=== PATIENT | female | born 1970 | race Caucasian/White ===

== ENCOUNTER → 2017-10-22 15:47 | Outpatient (CLI) | payer BC, SELFPAY ==
--- NOTE | 2017-10-22 15:56 | MR_ITS ---
MR elbow RT wo con CLINICAL INDICATION: Severe elbow pain after lifting ITS.REASON: RIGHT ELBOW PAIN ORDERING PHYSICIAN: Kashif Fitch MD PATIENT AGE: 47 years TECHNIQUE: Routine multiplanar multiecho sequences performed without contrast COMPARISON: None FINDINGS: No fracture or dislocation is evident. No destructive process. There is slight increased T2 signal along the medial aspect of the elbow within the subcutaneous tissues. There is questionable discontinuity of the posterior bundle of the ulnar collateral ligament suggesting a sprain or partial tear of the ligament. The anterior bundle is intact. The lateral collateral ligament has an unremarkable appearance. There is increased T2 signal involving the superior aspect of the common extensor tendon consistent with lateral epicondylitis. Biceps tendon and brachialis tendon appears intact as does the triceps tendon. Annular ligament has an unremarkable appearance. There is a small amount fluid in the elbow joint which may be physiologic. IMPRESSION: 1. Partial tear versus sprain of the posterior bundle of the ulnar collateral ligament. 2. Increased T2 signal involves the superior aspect of the common extensor tendon suggesting partial tear/tendinosis consistent with lateral epicondylitis 3. Small elbow joint effusion
== END ==
PROVIDERS: Family Provider Family Medicine; PCP Family Medicine; Visit Provider Family Medicine
DX: M25.521 Pain in right elbow (principal)
CPT/HCPCS: 73221

== ENCOUNTER → 2019-01-20 14:46 | Outpatient (CLI) | payer BC, SELFPAY ==
--- NOTE | 2019-01-20 14:49 | MM_ITS ---
MM Dig mamm BI DX w/CAD, US breast RT complete, US breast LT complete INDICATION: Palpable abnormality left breast, left breast nodule ORDERING PHYSICIAN: Crow Gloria PATIENT AGE: 48 years COMPARISON: 03/19/2017, 04/02/2017 TECHNIQUE: Standard images performed along with spot compression views of both breasts and bilateral breast ultrasound FINDINGS: There is dense fibroglandular tissue bilaterally decrease in the sensitivity of mammography. Right breast: Scattered asymmetric densities probably related to asymmetric fibroglandular tissue and small cysts. No malignant appearing mass or malignant appearing microcalcification is evident. There is an asymmetric density in the upper at 11 mm. A cyst is present in this area on the ultrasound. Multiple cysts are present on the right breast ultrasound. No malignant appearing mass or malignant appearing microcalcification is evident. Right breast ultrasound: 6 mm cyst at 3:00, 5 mm complex cyst at 8:00, 17 x 7 mm septated complex cyst at 8:00, 10 mm cyst at 10:00, small nodes in the right axilla. Left breast: Palpable abnormality reported in the upper outer left breast. There is dense fibroglandular tissue. A 3 cm nodule is present in the upper outer aspect of the left breast corresponding to the palpable abnormality. There is an additional 2 cm nodule in the medial aspect of the breast inferiorly. Left breast ultrasound: 5 mm cyst at 1:00, 2.3 x 1.6 cm cyst at 2:00, 1.9 x 1 cm cyst 2:00, 2.8 x 1 cm cyst at 9:00. No suspicious nodules evident IMPRESSION: Dense fibroglandular tissue with bilateral breast cyst. Bilateral areas of asymmetric density on the mammogram. No convincing evidence of malignancy. Palpable abnormality in the upper outer left breast corresponds to cysts. Recommend 6 month mammographic and sonographic follow-up. Sonographic guided cyst aspiration could be performed of any cysts for patient discomfort if clinically desired BI-RADS Category: 3 Probably Benign Finding Short Term Follow-up RECOMMENDED FOLLOW-UP: 6M - 6 MONTH FOLLOW-UP (A letter has been sent to the patient regarding results of the study.)
== END ==
PROVIDERS: PCP Family Medicine; Visit Provider Obstetrics & Gynecology Gynecology
DX: N63.20 Unspecified lump in the left breast, unspecified quadrant (principal)
CPT/HCPCS: 76641; 77066

== ENCOUNTER → 2019-04-27 11:29 | Outpatient (CLI) | payer BC, SELFPAY ==
--- NOTE | 2019-04-27 13:59 | CT_ITS ---
CT abdomen pelvis wo con CLINICAL INDICATION: ITS.REASON: RLQ PAIN,ABD PAIN ORDERING PHYSICIAN: Kashif Fitch MD PATIENT AGE: 49 years COMPARISON: None TECHNIQUE: Axial images obtained with sagittal and coronal reformats. All CT scans at the facility use one or more dose reduction, viz: automated exposure control, ma/kV adjustment per patient size (including targeted exams where dose is matched to indication, i.e. head), or iterative reconstruction technique. FINDINGS: Oral contrast was utilized. IV contrast was not given as IV access could not be obtained. Lower thorax: No acute finding . Asymmetric density is present in both right and left breast inferiorly and may be better evaluated with mammography. Abdomen pelvis: The liver, spleen, adrenal glands, and pancreas have an unremarkable unenhanced appearance. No radio opaque gallstones are evident. 5 mm stone is present in the lower pole the right kidney. No left renal calculi evident. No ureteral calculi. No hydronephrosis. The urinary bladder has an unremarkable appearance. No evidence of appendicitis. The appendix does spill with contrast. The appendix is retrocecal. No intestinal obstruction or free air. No evidence of diverticulitis. There are few scattered small mesenteric lymph nodes which are nonspecific. Some minimal haziness of the mesenteric fat posterior to the cecum which may actually be artifactual in nature. There is an oval area of decreased attenuation in the left adnexa measures 4.6 cm AP and 1.4 cm transverse. The could represent a hydrosalpinx or an unusual ovarian cyst. There is a small amount of fluid in the cul-de-sac the right. No acute bony findings. IMPRESSION: 1. No evidence of appendicitis. 2. Nonobstructing right nephrolithiasis. 3. Tubular appearing isodensity in the left adnexal region which may represent hydrosalpinx. An atypical ovarian cyst is an additional consideration
== END ==
PROVIDERS: PCP Family Medicine; Visit Provider Family Medicine
DX: R10.31 Right lower quadrant pain (principal)
CPT/HCPCS: 74176

== ENCOUNTER → 2020-08-11 09:02 | Outpatient (CLI) | payer BC, SELFPAY ==
--- NOTE | 2020-08-11 09:04 | US_ITS ---
PROCEDURE: US THYROID CLINICAL INDICATION: NECK PAIN COMPARISON: No exams were available for comparison FINDINGS: Right lobe: 4.1 x 1 3 x 2.1 cm. In the upper pole there is a 4 mm hypoechoic nodule. Mid polar region 3 mm hypoechoic nodule. In the lower pole there is a 4 mm hypoechoic nodule. Left lobe: 4.3 x 1.2 x 1.5 cm. In the upper pole there is a 2 mm hypoechoic nodule. In the mid pole there is a 4 mm cyst with a small echogenic focus peripherally. Isthmus: Unremarkable Additional findings: IMPRESSION: Borderline enlarged thyroid gland with small bilateral hypoechoic nodules benign-appearing Dictated by: Bam Cisse MD 08/11/2020 13:01 Bam Cisse MD in [place] 08/11/2020 13:01
--- NOTE | 2020-08-11 09:05 | US_ITS ---
PROCEDURE: US SOFT TISSUE HEAD AND NECK CLINICAL INDICATION: NECK PAIN COMPARISON: No exams were available for comparison FINDINGS: The parotid and submandibular glands have an unremarkable appearance. There are few scattered small nodes in the neck on both sides measuring up to 1 cm on the right. There are hypoechoic nodules along the lower pole of the parotid gland on the left and has the appearance of small nodes. No abnormal fluid collection or other significant anomaly. IMPRESSION: Small cervical and left parotid lymph nodes otherwise negative Dictated by: Bam Cisse MD 08/11/2020 14:38 Bam Cisse MD in [place] 08/11/2020 14:38
== END ==
PROVIDERS: PCP Family Medicine; Visit Provider Family Medicine
DX: M54.2 Cervicalgia (principal)
CPT/HCPCS: 76536

== ENCOUNTER → 2020-08-31 16:03 | Outpatient (CLI) | payer BC, SELFPAY ==
[2020-08-31 17:54] LABS: Basophils % 0.6 % (0.1-2.0); Eosinophils # 0.1 K/mm3 (0.0-0.4); Eosinophils % 1.8 % (0.1-12.0); Hemoglobin 15.3 g/dL (12.2-16.2); Lymphocytes # 2.1 K/mm3 (0.7-4.5); Lymphocytes % 37.6 % (10-50); Mean Corpuscular HGB Conc 33.2 g/dL (31.8-35.4); Mean Corpuscular Hemoglobin 30.4 pg (27.0-31.2); Mean Corpuscular Volume 91.5 fl (81-99); Mean Platelet Volume 10.3 fl (7.4-10.4); Monocytes # 0.3 K/mm3 (0.1-1.0); Monocytes % 5.6 % (1.7-9.3); Neutrophils % 54.3 % (37.0-80.0); Platelet Count 193 K/mm3 (142-424); Red Blood Count 5.03 M/mm3 (4.20-5.40); White Blood Count 5.5 K/mm3 (4.8-10.8)
[2020-09-02 09:51] LABS: Covid-19 Nasal PCR Sendout Lex POSITIVE
== END ==
PROVIDERS: PCP Family Medicine; Visit Provider Nurse Practitioner Family
DX: Z20.828 Contact with and (suspected) exposure to other viral communicable diseases (principal); U07.1 COVID-19
CPT/HCPCS: 36415; 85025; U0004

== ENCOUNTER → 2020-12-08 09:07 | Outpatient (CLI) | payer BC, SELFPAY ==
--- NOTE | 2020-12-08 09:11 | MM_ITS ---
PROCEDURE: MM DIG SCREENING MAMM BI W/CAD Digital Breast Tomosynthesis Included CLINICAL INDICATION: SCREENING There is a history of breast cancer patient's paternal aunt. COMPARISON: MG DMSB DIG MAMM-SCREEN MAYELIN W/CAD from 03/19/2017 MG DMBAV DIG MAMM- MAYELIN ADD VIEWS W/CAD from 04/02/2017 MG DIG MAMM-DX MAYELIN from 01/20/2019 TECHNIQUE: Standard CC and MLO images and 3D Tomosynthesis was obtained. R2 CAD reviewed. FINDINGS: There is a markedly dense and heterogenic parenchymal pattern lessening the sensitivity of mammography. There are multiple cystic appearing lesions in both breasts, largest outer quadrant left breast. There has been interval decrease in size of the cystic lesions left breast compared to earlier studies. Cystic lesions in the right breast appear to be stable. Stephane images are most helpful in this type of dense breast parenchyma. There is no suspicious lesion in either breast and no suspicious microcalcifications. However strongly encourage monthly breast self-examination. IMPRESSION: Markedly dense heterogenic parenchymal pattern consistent with prominent fibrocystic change BI-RAD Category: 2 Benign Finding(s) FOLLOW-UP: 1YR 1 Year Follow-up (A letter has been sent to the patient regarding results of the study.) Dictated by: Dr. Jarvis Polk MD 12/15/2020 16:46 Dr. Jarvis Polk MD in [place] 12/15/2020 16:46
--- NOTE | 2020-12-08 11:25 | XR_ITS ---
PROCEDURE: XR CHEST 2V CLINICAL HISTORY: SOB COMPARISON: CR CXR CHEST(2 VIEWS-NOT PORTABLE) from 11/08/2015 FINDINGS: The cardiomediastinal silhouette and pulmonary vascularity are within normal limits. The lungs are clear without infiltrates, suspicious nodules, or pleural effusions. No acute bony abnormalities. IMPRESSION: No acute findings. Dictated by: Bam Cisse MD 12/08/2020 17:46 Bam Cisse MD in [place] 12/08/2020 17:46
[2020-12-08 11:51] LABS: D-Dimer 0.59 ug/mL (0.0-0.5)
[2020-12-08 12:11] LABS: Alanine Aminotransferase 19 U/L (12-78); Albumin Level 4.7 g/dl (3.5-5.0); Albumin/Globulin Ratio 1.6 (1.1-1.8); Alkaline Phosphatase 101 U/L (38-126); Anion Gap 11.7 mEq/L (5-15); Aspartate Amino Transferase 22 U/L (14-36); Bilirubin,Total 0.9 mg/dl (0.2-1.3); Blood Urea Nitrogen 15 mg/dl (7-17); Calcium 9.6 mg/dl (8.4-10.2); Carbon Dioxide 26 mmol/L (22.0-30.0); Chloride 105 mmol/L (98-107); Chol/HDL Ratio 4.4 (1-3.5); Cholesterol 242 mg/dl (140-200); Creatine Kinase 31 U/L (30-135); Estimated Glomerular Filt Rate 76 ml/min (>60); GFR (African American) 92 ML/MIN (>60); Glucose 93 mg/dl (74-100); HDL Cholesterol 55 mg/dl (40-60); Magnesium 2.2 mg/dl (1.6-2.3); Potassium 4.7 mmoL/L (3.5-5.1); Sodium 138 mmol/L (136-145); Total Protein,Serum 7.7 g/dl (6.3-8.2); Triglycerides 112 mg/dl (30-150); VLDL Cholesterol 22 mg/dL (0-40)
[2020-12-08 12:14] LABS: Basophils # 0.1 K/mm3 (0-0.2); Eosinophils # 0.1 K/mm3 (0.0-0.4); Hematocrit 43.7 % (37.0-47.0); Hemoglobin 14.4 g/dL (12.2-16.2); Lymphocytes # 1.9 K/mm3 (0.7-4.5); Mean Corpuscular HGB Conc 32.9 g/dL (31.8-35.4); Mean Corpuscular Volume 88.2 fl (81-99); Mean Platelet Volume 9.2 fl (7.4-10.4); Monocytes # 0.4 K/mm3 (0.1-1.0); Monocytes % 5.9 % (1.7-9.3); Neutrophils # 3.7 K/mm3 (1.8-7.8); Neutrophils % 60.1 % (37.0-80.0); Platelet Count 221 K/mm3 (142-424); Red Blood Count 4.96 M/mm3 (4.20-5.40); Red Cell Distribution Width 13.8 % (11.5-17.5); White Blood Count 6.1 K/mm3 (4.8-10.8)
[2020-12-08 12:23] LABS: Direct LDL Cholesterol 133.29 mg/dL (100-129)
[2020-12-08 12:28] LABS: CKMB Relative Index 0.6 U/L (0-4.0); Creatine Kinase MB < 0.2 ng/ml (0.0-2.03); Troponin I < 0.01 ng/ml (0.00-0.034)
[2020-12-08 13:17] LABS: Vitamin B12 334 pg/mL (239-931)
== END ==
PROVIDERS: Physician Assistant; PCP Family Medicine; Visit Provider Obstetrics & Gynecology Gynecology
DX: Z12.31 Encounter for screening mammogram for malignant neoplasm of breast (principal); R06.02 Shortness of breath
CPT/HCPCS: 36415; 71046; 77063; 77067; 80053; 80061; 82550; 82553; 82607; 83735; 84100; 84443; 84484; 85025; 85378

== ENCOUNTER → 2020-12-12 09:10 | Outpatient (CLI) | payer BC, SELFPAY ==
--- NOTE | 2020-12-12 | CA_ITS ---
APPROVED REPORT Exam: Exercise Treadmill Technologist: Shiloh Ca Ht: 5 ft 5 in Wt: 185 lbs BSA: 1.91 m2 HR: 79 bpm BP: 137/78 mmHg Indications: Chest pain Medical History Medications: Omeprazole,,,,, Multivitamin,,,,, Stress Test Details Test: All HR Resting HR: 88 bpm Max Heart Rate (APMHR): 171.625545 bpm Max HR Achieved: 175 bpm Target HR (85% APMHR): 145.081394 bpm % of APMHR: 102.34 Recovery HR: 100 bpm BP Resting BP: 137.0/78.0 mmHg Max BP: 158.0/68.0 mmHg Recovery BP: 141.0/76.0 mmHg ECG Clinical Exercise duration: 07:25 min Highest Stage Achieved: Exercise capacity: 10.1 METs Stress ECG Conclusion All protocol completed. Patient exercised 07:25. Test stopped due to shortness of breath. Symptoms: Shortness of breath during peak exercise, resolved in recovery. No chest pain. Arrhythmias/Ectopy: Occasional PVC ST-T Changes: Greater than 1.[address] depression. Conclusion: GXT only. Occasional PVC. Average physical capacity. Appropriate blood pressure response. Grater than 1.[address] depression. No chest pain. Electronically signed by : Romel James, 12/12/2020 17:20:44
== END ==
PROVIDERS: PCP Family Medicine; Visit Provider Physician Assistant
DX: R07.9 Chest pain, unspecified (principal)
CPT/HCPCS: 93017

== ENCOUNTER → 2020-12-15 10:53 | Outpatient (CLI) | payer BC, SELFPAY ==
[2020-12-15 11:40] LABS: Basophils % 0.7 % (0.1-2.0); Eosinophils # 0.1 K/mm3 (0.0-0.4); Eosinophils % 1.9 % (0.1-12.0); Hematocrit 42.1 % (37.0-47.0); Hemoglobin 14.3 g/dL (12.2-16.2); Lymphocytes # 1.8 K/mm3 (0.7-4.5); Lymphocytes % 34.3 % (10-50); Mean Corpuscular HGB Conc 33.9 g/dL (31.8-35.4); Mean Corpuscular Hemoglobin 29.7 pg (27.0-31.2); Mean Corpuscular Volume 87.5 fl (81-99); Mean Platelet Volume 9.4 fl (7.4-10.4); Monocytes # 0.3 K/mm3 (0.1-1.0); Monocytes % 6.6 % (1.7-9.3); Neutrophils # 2.9 K/mm3 (1.8-7.8); Neutrophils % 56.4 % (37.0-80.0); Platelet Count 214 K/mm3 (142-424); Red Blood Count 4.81 M/mm3 (4.20-5.40); Red Cell Distribution Width 13.7 % (11.5-17.5); White Blood Count 5.2 K/mm3 (4.8-10.8)
[2020-12-15 11:58] LABS: Chloride 104 mmol/L (98-107)
[2020-12-15 11:59] LABS: Potassium 4.6 mmoL/L (3.5-5.1); Sodium 140 mmol/L (136-145)
[2020-12-15 12:02] LABS: Anion Gap 11.6 mEq/L (5-15); Blood Urea Nitrogen 12 mg/dl (7-17); Calcium 9.5 mg/dl (8.4-10.2); Carbon Dioxide 29 mmol/L (22.0-30.0); Estimated Glomerular Filt Rate 76 ml/min (>60); GFR (African American) 92 ML/MIN (>60); Glucose 94 mg/dl (74-100)
[2020-12-15 12:23] LABS: Coronavirus 19 IgG Antibody Positive (Negative); Coronavirus 19 IgM Antibody Negative (Negative)
== END ==
PROVIDERS: PCP Family Medicine; Visit Provider Internal Medicine Cardiovascular Disease
DX: Z01.812 Encounter for preprocedural laboratory examination (principal); Z20.822 Contact with and (suspected) exposure to COVID-19; I20.9 Angina pectoris, unspecified; R94.31 Abnormal electrocardiogram [ECG] [EKG]; R94.39 Abnormal result of other cardiovascular function study; E78.5 Hyperlipidemia, unspecified; B94.8 Sequelae of other specified infectious and parasitic diseases; Z82.49 Family history of ischemic heart disease and other diseases of the circulatory system
CPT/HCPCS: 80048; 85025; 86328; U0003

== ENCOUNTER 2020-12-16 09:25 | Day surgery (SDC) | payer BC, SELFPAY ==
[2020-12-16] VITALS (17 sets, daily range): BP systolic 57–147; BP diastolic 31–83; PULSE 23–87; RESP 16–18; TEMP 37; O2SAT 98–100; BMI 31.1
--- NOTE | 2020-12-16 | IR_ITS ---
APPROVED REPORT Patient Location: Outpatient Building Tech: AYSHA Goodman RT (R) PROCEDURES Left heart catheterization Left ventriculogram Selective coronary angiogram INDICATION Abnormal stress test, Angina pectoris, Strong family history of coronary disease with numerous risk factors Informed consent was obtained prior to the procedure. COMPLICATIONS NONE Estimated Blood Loss: LESS THAN 10 ML TECHNIQUE One percent lidocaine used to anesthetize the right anterior aspect of the wrist. The right radial artery was accessed via the Seldinger technique. A 6 Faroese sheath was placed in the right radial artery. 2.5 mg of verapamil, 800 mcg of nitroglycerin, 1mg Lidocaine and 5000 U Heparin were given through the arterial sheath. A Way2Pay catheter r was also used to perform left heart catheterization, left ventriculogram and selective coronary angiogram. At the end of the procedure the sheath was removed good hemostasis was achieved using Traclet band, patient was transferred to the postop holding area in stable condition. ANGIOGRAPHIC RESULTS The left main artery Normal The left anterior descending artery Normal The circumflex artery Normal The right coronary artery Dominant normal The GILLETTE ventriculogram reveals Normal 65% The left ventricular end-diastolic pressure 10 mmHg IMPRESSION Normal coronary arteries Normal ejection fraction Normal left ventricular end-diastolic pressure PLAN 1. Treat underlying hypertension which is the likely etiology for the abnormal stress test Electronically signed by : Andrea Gutierrez, 12/16/2020 12:03:55
--- NOTE | 2020-12-16 12:49 | SUR.PHASEII ---
While patient was sitting up and eating her meal she stated she felt as if she was going to pass out, HR noted to be in low 20s on monitor, pt became hypotensive. I and Veronica RN quickly to beside to assess patient. Oxygen applied, fluid bolus going, and pt laid flat. HR and b/p are now stable, will continue to monitor.
--- NOTE | 2020-12-16 14:48 | SUR.PHASEII ---
patient is feeling better after vagal response in post op lab analyst. BP and HR stable at discharge
== END 2020-12-16 14:47 | disposition home or self-care (01) ==
LOC: CATHLAB 09:27
PROVIDERS: PCP Family Medicine; Visit Provider Internal Medicine
DX: I20.8 Other forms of angina pectoris (principal); Z82.49 Family history of ischemic heart disease and other diseases of the circulatory system; R07.9 Chest pain, unspecified; I10 Essential (primary) hypertension; Z79.899 Other long term (current) drug therapy; R94.39 Abnormal result of other cardiovascular function study
CPT/HCPCS: 93458; 99152; C1725; C1760; C1769; J1644; Q9967

== ENCOUNTER → 2020-12-22 15:05 | Outpatient (CLI) | payer BC, SELFPAY ==
--- NOTE | 2020-12-22 15:07 | CA_ITS ---
APPROVED REPORT EXAM: Comprehensive 2D, Doppler, and color-flow Echocardiogram Sane Rn: Anny Vidales CRT Ht: 5 ft 5 in Wt: 187lbs BSA: 1.92 BP: 137/86 mmHg Indications: Chest Pain, Shortness of Breath, Hyperlipidemia 2D Dimensions LVOT 1.70 cm (M/F) 1.5-2.5 LA Volume 28.70 mL LA Volume Index 14.90 mL/m2 (M/F) 16-34 M-Mode Dimensions RVDd 1.81 cm (0.9-2.6) LA Diam 3.14 cm (1.9-4.0) LVDd 5.00 cm (3.5-5.7) Ao Diam 3.14 cm (2.0-3.7) LVDs 3.06 cm (3.5-5.7) IVSd 1.28 cm (0.6-1.1) PWd 0.59 cm (0.6-1.1) EF (Teich) 69.00% FS 38.80% EDV (Teich) 118.20 mL TAPSE 3.43 (<1.7) ESV (Teich) 36.70 mL LV Diastology E Decel Time 223.00 (160-240 msec) E/A Ratio 1.40 MED E' 9.80 (< 7 cm/sec) MED A' 7.70 cm/s E'/MED E' Ratio 9.81 (>14) LAT E' 11.20 (<10 cm/sec) LAT A' 8.00 cm/s E/LAT E' Ratio 8.58 (>14) Aortic Valve AO Peak GR. 9.60 mmHg Mitral Valve MV A Velocity 69.00 (40-130 cm/s) E/A Ratio 1.40 MV Decel. Time 223.00 (160-240 ms) Pulmonary Valve PV Peak Velocity 95.00 (50-150 cm/s) Tricuspid Valve TR P. Velocity 232.00 cm/s RAP Estimate 10.00 mmHg RVSP 31.50 mmHg Left Ventricle Left atrium is normal size, left ventricle is normal size, left ventricle wall thickness is upper limit of the normal, there is preserved left ventricular systolic function, visually estimated ejection fraction 55% with no regional wall motion abnormality, diastolic parameters are within normal range. Right Ventricle Right atrium and right ventricle are normal size and contractility. Aortic Valve Aortic valve is grossly normal, there is no aortic stenosis or aortic insufficiency. Mitral Valve Mitral valve is grossly normal, there is trace mitral regurgitation. Tricuspid Valve Tricuspid valve grossly normal, there is trace tricuspid regurgitation, tricuspid regurgitation jet velocity is inadequate for calculation of the right ventricular systolic pressure. Pulmonic Valve Pulmonic valve is poorly visualized. Great Vessels Aortic root is normal size. Pericardium No significant pericardial effusion noted. Conclusion 1. Normal left ventricular size, preserved left ventricular systolic function, visually estimated ejection fraction 55% with no regional wall motion abnormality, diastolic parameters are within normal range. 2. Trace mitral and tricuspid regurgitation. 3. No significant pericardial effusion noted. Electronically signed by : Jeffery Penn, 12/24/2020 13:40:42
== END ==
PROVIDERS: PCP Family Medicine; Visit Provider Internal Medicine Cardiovascular Disease
DX: I20.9 Angina pectoris, unspecified (principal); R94.31 Abnormal electrocardiogram [ECG] [EKG]; R94.39 Abnormal result of other cardiovascular function study; E78.5 Hyperlipidemia, unspecified; Z86.16 Personal history of COVID-19; B94.8 Sequelae of other specified infectious and parasitic diseases; Z82.49 Family history of ischemic heart disease and other diseases of the circulatory system
CPT/HCPCS: 93306

== ENCOUNTER → 2020-12-27 11:54 | Outpatient (CLI) | payer BC, SELFPAY ==
--- NOTE | 2020-12-27 12:05 | CT_ITS ---
PROCEDURE: CT ANGIO CHEST CLINCIAL INDICATION: SOB Chest pain Hx of covid in August 2020 COMPARISON: MG MM DIG SCREENING MAMM BI W/CAD from 12/08/2020 TECHNIQUE: IV Contrast: 70ML Isovue 370 Axial images obtained with sagittal and coronal reformats. All CT scans at the facility use one or more dose reduction, viz: automated exposure control, ma/kV adjustment per patient size (including targeted exams where dose is matched to indication, i.e. head), or iterative reconstruction technique. FINDINGS: HEART AND MEDIASTINAL STRUCTURES: No evidence of pulmonary embolus, aortic aneurysm, or aortic dissection. No mediastinal or hilar mass or adenopathy. LUNGS AND PLEURAL SPACES: There is evidence of old granulomatous disease no lobar consolidation or collapse. No ground-glass infiltrates. There is a calcified granuloma in the left upper lobe with some minimal surrounding opacification. There is a 7 by 4 mm noncalcified nodule in the left upper lobe. No bronchiectasis or significant bronchial thickening apparent. BONY STRUCTURES: No acute bony abnormalities apparent. UPPER ABDOMEN: Unremarkable. ADDITIONAL FINDINGS: There are bilateral rounded densities of the breasts and may be due to cyst as seen on recent mammogram. IMPRESSION: 1. No acute finding. No evidence of pulmonary embolus. 2. Indeterminate 7 x 4 mm left upper lobe nodule. Consider six-month follow-up to confirm stability. 3. Old granulomatous disease Dictated by: Bam Cisse MD 12/28/2020 10:34 Bam Cisse MD in [place] 12/28/2020 10:34
== END ==
PROVIDERS: PCP Family Medicine; Visit Provider Physician Assistant
DX: R07.9 Chest pain, unspecified (principal); R06.02 Shortness of breath; R79.89 Other specified abnormal findings of blood chemistry; Z86.16 Personal history of COVID-19
CPT/HCPCS: 71275; Q9967

== ENCOUNTER → 2021-03-01 07:59 | Outpatient (CLI) | payer BC, SELFPAY | PROVIDERS: PCP Family Medicine; Visit Provider Internal Medicine Pulmonary Disease | DX: R06.09 Other forms of dyspnea (principal) | CPT/HCPCS: 94060; 94726; 94729 ==

== ENCOUNTER → 2021-07-03 06:54 | Outpatient (CLI) | payer BC, SELFPAY ==
--- NOTE | 2021-07-03 06:55 | CT_ITS ---
PROCEDURE: CT CHEST WO CON CLINICAL INDICATION: 6-month follow-up COMPARISON: CT CT ANGIO CHEST from 12/27/2020 TECHNIQUE: Axial images obtained with sagittal and coronal reformats. All CT scans at the facility use one or more dose reduction, viz: automated exposure control, ma/kV adjustment per patient size (including targeted exams where dose is matched to indication, i.e. head), or iterative reconstruction technique. FINDINGS: HEART AND MEDIASTINAL STRUCTURES: Unremarkable. LUNGS AND PLEURAL SPACES: Calcified granulomas once again noted in the left upper lobe. In the left upper lobe anteriorly there is a 7 x 4 mm nodule which is unchanged. No new nodules evident. No effusions or infiltrates. BONY STRUCTURES: No acute bony abnormalities apparent. UPPER ABDOMEN: Unremarkable. ADDITIONAL FINDINGS: No other significant abnormalities. IMPRESSION: Stable CT appearance of the chest with no change in the 7 mm left upper lobe nodule. No change with no acute finding. Dictated by: Bam Cisse MD 07/04/2021 10:16 Bam Cisse MD in [place] 07/04/2021 10:16
== END ==
PROVIDERS: PCP Family Medicine; Visit Provider Internal Medicine Pulmonary Disease
DX: R91.8 Other nonspecific abnormal finding of lung field (principal)
CPT/HCPCS: 71250

== ENCOUNTER → 2022-01-02 14:10 | Outpatient (CLI) | payer BC, SELFPAY ==
--- NOTE | 2022-01-02 14:14 | XR_ITS ---
FINAL REPORT CLINICAL HISTORY: INJURY FROM A FALL, pain FINDINGS: 3 views of the right foot were obtained. There is no acute fracture or dislocation. The joint spaces are intact. The soft tissues are unremarkable. IMPRESSION: No acute process. Reviewed, Interpreted and Dictated by Cleveland Newsome MD Transcribed by Clovis Dickson Authenticated by Cleveland Newsome MD on 01/02/2022 04:52:04 PM [facility]
--- NOTE | 2022-01-02 14:16 | XR_ITS ---
FINAL REPORT CLINICAL HISTORY: INJURY FROM A FALL FINDINGS: RIGHT ANKLE: Three views of the right ankle were obtained. There is no acute fracture or dislocation. The joint spaces and mortise are intact. There is no soft tissue abnormality. IMPRESSION: No acute process. Reviewed, Interpreted and Dictated by Cleveland Newsome MD Transcribed by Clovis Dickson Authenticated by Cleveland Newsome MD on 01/02/2022 04:51:47 PM [facility]
== END ==
PROVIDERS: PCP Family Medicine; Visit Provider Family Medicine
DX: S93.401A Sprain of unspecified ligament of right ankle, initial encounter (principal)
CPT/HCPCS: 73610; 73630

== ENCOUNTER 2022-09-19 16:08 | Emergency (ER) | payer BC, SELFPAY ==
[2022-09-19 16:55] VITALS: BP 143/94; PULSE 81; RESP 16; TEMP 36.7; O2SAT 100; BMI 31.0
--- NOTE | 2022-09-19 17:11 | EXP.UTC ---
Discharge Plan Disposition Patient Disposition: Home, Self-Care Condition: Good Prescriptions Prescriptions: No Action multivitamin Tablet 1 tab PO DAILY omeprazole 40 mg capsule,delayed release(DR/EC) 40 mg PO DAILY Label Comments: TAKE 1 CAPSULE BY MOUTH ONCE DAILY FOR 30 DAYS metoprolol succinate 25 mg tablet extended release 24 hr 25 mg PO DAILY Qty: 30 5RF albuterol sulfate 90 mcg/actuation HFA aerosol inhaler 1 inh INHALATION QID PRN (Reason: shortness of breath or wheezing) Qty: 8.5 1RF azelastine 205.5 mcg (0.15 %) spray,non-aerosol 2 spray INTRANASAL HS Qty: 30 3RF Rx Instructions: administer into each nostril Referrals Follow up/Referrals: Octavio Kowalski MD [Primary Care Provider] - See instructions Activity Restrictions/Add. Instructions Additional Instructions/Restrictions: Suture instructions: ?You have required stitches today. Please read the following instructions so you know how to care for them: ?1. Keep wound area dry for the first 24 hours. 2?? May clean gently with mild soap and water, after 48 hours to prevent crusting over suture knots. 3. You may shower if your provider gives permission but do not take a bath until the skin is healed.. 4. Never leave a wet dressing or Band-Aid on your stitches as this allows bacteria to reach the area and may cause infection. Band-aids can cause the wound to sweat and not recommended to wear for long periods of time Watch for signs of infection: ? Increasing redness, tenderness or warmth around the suture site ? Unusual swelling around the site ? Appearance of pus around each suture or any red streaks ? Fever If you develop any of the above signs or symptoms of infection, Follow up with Family Physician immediately 5. Suture removal in _8-10___days 6. Return to [facility] or follow up with family doctor for removal. This can be done by any medical provider dur?ing regular hours on Saturday through Saturday, by appointment. Clinical Impressions Clinical Impression: Laceration Instructions Patient Instructions: DI for Laceration Repair, DI for Laceration Repair -- Finger Discharge ED Provider: Amber Ordaz [facility] General Stated complaint: [id number] Lac to RT index finger Mode of Arrival: Ambulatory Source of Information: Patient Limitations: No Limitations Time Seen by Provider: 09/19/22 17:11 Description of Symptoms (Recalled from Triage Doc. by RN): PATIENT C/O LACERATION TO RIGHT INDEX FINGER HEENT Symptoms (Recalled from RN notes): No Resp Symptoms (Recalled from RN notes): No Skin Symptoms (Recalled from RN notes): Yes MS Symptoms (Recalled from RN notes): No Functional Status (Recalled from RN notes): WNL History of Present Illness Provider Complaint: Patient states that she was washing dishes and dropped a knife and it cut her on right index finger at the bottom of her finger States that she applied pressure but she couldnt get the bleeding stopped and when she looked at it thought she may need glued or stitches Related Data Home Medications Medication Instructions Recorded Confirmed multivitamin 1 tab PO DAILY supplement 12/15/20 07/04/21 omeprazole 40 mg capsule,delayed 40 mg PO DAILY GERD 12/15/20 07/04/21 release Previous Rx's Medication Instructions Recorded metoprolol succinate 25 mg 25 mg PO DAILY High blood pressure 12/23/20 tablet,extended release 24 hr #30 tabs albuterol sulfate 90 mcg/actuation 1 inh inhalation QID PRN shortness 01/30/21 aerosol inhaler of breath or wheezing #8.5 grams azelastine 205.5 mcg (0.15 %) 2 spray intranasal HS #30 mL 03/01/21 nasal spray Allergies Allergy/AdvReac Type Severity Reaction Status Date / Time guaifenesin [From Mucinex] Allergy Intermediate Swelling Verified 07/04/21 11:34 of Lip/Tongue/Throat Worker's Comp Is this a Worker's Comp case?: No [facility] Disclaimer: The information contained in this section may have
[2022-09-19 17:34] VITALS: BP 143/94; PULSE 81; RESP 16; TEMP 36.7; O2SAT 100
== END 2022-09-19 17:37 | disposition home or self-care (01) ==
PROVIDERS: Emergency Provider Nurse Practitioner; PCP Family Medicine
DX: S61.210A Laceration without foreign body of right index finger without damage to nail, initial encounter (principal); W26.0XXA Contact with knife, initial encounter; Y93.G1 Activity, food preparation and clean up; Z23 Encounter for immunization
CPT/HCPCS: 12001; 90471; 90715; 99212; G0463

== ENCOUNTER 2022-10-11 09:21 | Emergency (ER) | payer BC, SELFPAY ==
--- NOTE | 2022-10-11 10:10 | EXP.UTC ---
Discharge Plan Disposition Patient Disposition: Home, Self-Care Condition: Good Prescriptions Prescriptions: New ibuprofen [ibuprofen] 600 mg tablet 600 mg PO Q6HP PRN (Reason: Mild Pain) Qty: 30 0RF No Action multivitamin Tablet 1 tab PO DAILY omeprazole 40 mg capsule,delayed release(DR/EC) 40 mg PO DAILY Label Comments: TAKE 1 CAPSULE BY MOUTH ONCE DAILY FOR 30 DAYS metoprolol succinate 25 mg tablet extended release 24 hr 25 mg PO DAILY Qty: 30 5RF albuterol sulfate 90 mcg/actuation HFA aerosol inhaler 1 inh INHALATION QID PRN (Reason: shortness of breath or wheezing) Qty: 8.5 1RF azelastine 205.5 mcg (0.15 %) spray,non-aerosol 2 spray INTRANASAL HS Qty: 30 3RF Rx Instructions: administer into each nostril Referrals Follow up/Referrals: Raymond Mar JR, MD [Physician] - See instructions Octavio Kowalski MD [Primary Care Provider] - See instructions Activity Restrictions/Add. Instructions Additional Instructions/Restrictions: Rest the extremity, apply ice for 15 minutes as tolerated three or four times per day, Elevate the extremity as tolerated while you are resting. Take ibuprofen for pain. I sent in a prescription to your pharmacy. Follow up with Dr. Mar (orthopedics). I put in a referral but you need to call his office and schedule an appointment. Follow up with your regular doctor. GO TO THE ER FOR ANY WORSENING SYMPTOMS Clinical Impressions Clinical Impression: Left wrist sprain, Pain in left arm Instructions Patient Instructions: Wrist Sprain, DI for Wrist Sprain Discharge ED Provider: Irineo Huynh [facility] General Stated complaint: [id number] left arm Time Seen by Provider: 10/11/22 10:11 History of Present Illness Provider Complaint: She states that yesterday she was moving a very heavy dresser when it slipped and caused her to twist her left wrist and forearm. Since then she has had swelling of that wrist and hand. Related Data Home Medications Medication Instructions Recorded Confirmed multivitamin 1 tab PO DAILY supplement 12/15/20 07/04/21 omeprazole 40 mg capsule,delayed 40 mg PO DAILY GERD 12/15/20 07/04/21 release Previous Rx's Medication Instructions Recorded metoprolol succinate 25 mg 25 mg PO DAILY High blood pressure 12/23/20 tablet,extended release 24 hr #30 tabs albuterol sulfate 90 mcg/actuation 1 inh inhalation QID PRN shortness 01/30/21 aerosol inhaler of breath or wheezing #8.5 grams azelastine 205.5 mcg (0.15 %) 2 spray intranasal HS #30 mL 03/01/21 nasal spray ibuprofen 600 mg tablet 600 mg PO Q6HP PRN Mild Pain #30 10/11/22 tabs Allergies Allergy/AdvReac Type Severity Reaction Status Date / Time guaifenesin [From Mucinex] Allergy Intermediate Swelling Verified 10/11/22 10:50 of Lip/Tongue/Throat PFSH [facility] Disclaimer: The information contained in this section may have been updated after the patient was seen, as this information can be updated by other users. Medical History (Updated 10/11/22 @ 11:18 by Irineo Huynh APRN) Dyspnea on exertion History of 2019 novel coronavirus disease (COVID-19) Seasonal allergies Solitary pulmonary nodule Surgical History History of cardiac cath History of lateral meniscus repair of left knee History of total hysterectomy Family History (Updated 07/11/22 @ 13:55 by RT Ravinder) Other No significant family history Social History (Updated 09/19/22 @ 17:08 by Nat Bowen RN) Smoking Status: Never smoker alcohol intake: never substance use type: denies use current occupational status: unemployed Travel in the last 8 weeks: None household members: spouse housing: house ROS Obtained: Yes All systems reviewed & no additional complaints except as documented Constitutional Constitutional: Denies chills and Denies fever(s) Mu
--- NOTE | 2022-10-11 10:12 | XR_ITS ---
FINAL REPORT CLINICAL HISTORY: pain and swelling wrist area, injury while moving furniture yesterday. FINDINGS: AP and lateral views of the left forearm are obtained. There is no prior exam for comparison. There is no acute osseous abnormality of the left forearm. The wrist and elbow are intact. The soft tissues appear normal. IMPRESSION: No acute osseous abnormality of the left forearm. Reviewed, Interpreted and Dictated by Tessa Long MD Transcribed by Portia Ferrell Authenticated and [facility]
--- NOTE | 2022-10-11 10:12 | XR_ITS ---
FINAL REPORT CLINICAL HISTORY: pain and swelling wrist area, injury while moving furniture yesterday. FINDINGS: AP, oblique, and lateral views of the left wrist were obtained. There is no prior exam for comparison. There is no acute fracture or dislocation. The joint spaces are preserved. The soft tissues are normal. IMPRESSION: No acute osseous abnormality of the left wrist. If pain persists, MR is recommended. Reviewed, Interpreted and Dictated by Tessa Long MD Transcribed by Portia Ferrell Authenticated and [facility]
[2022-10-11 10:15] VITALS: BP 135/79; PULSE 60; RESP 20; TEMP 36.5; O2SAT 97; BMI 29.1
[2022-10-11 11:39] VITALS: BP 135/79; PULSE 60; RESP 20; TEMP 36.5; O2SAT 97
== END 2022-10-11 11:32 | disposition home or self-care (01) ==
PROVIDERS: Emergency Provider Nurse Practitioner Family; PCP Family Medicine
DX: M79.602 Pain in left arm; S63.502A Unspecified sprain of left wrist, initial encounter; X50.9XXA Other and unspecified overexertion or strenuous movements or postures, initial encounter
CPT/HCPCS: 73090; 73110; 99212; 99214; G0463

== ENCOUNTER 2023-01-17 18:54 | Emergency (ER) | payer BC, SELFPAY ==
[2023-01-17 19:15] VITALS: BP 148/83; PULSE 72; RESP 17; O2SAT 98; BMI 29.1
--- NOTE | 2023-01-17 19:30 | HMH.EDGENADL ---
Discharge Plan Disposition Patient Disposition: Home, Self-Care Prescriptions Prescriptions: No Action multivitamin Tablet 1 tab PO DAILY omeprazole 40 mg capsule,delayed release(DR/EC) 40 mg PO DAILY Label Comments: TAKE 1 CAPSULE BY MOUTH ONCE DAILY FOR 30 DAYS metoprolol succinate 25 mg tablet extended release 24 hr 25 mg PO DAILY Qty: 30 5RF albuterol sulfate 90 mcg/actuation HFA aerosol inhaler 1 inh INHALATION QID PRN (Reason: shortness of breath or wheezing) Qty: 8.5 1RF azelastine 205.5 mcg (0.15 %) spray,non-aerosol 2 spray INTRANASAL HS Qty: 30 3RF Rx Instructions: administer into each nostril ibuprofen [ibuprofen] 600 mg tablet 600 mg PO Q6HP PRN (Reason: Mild Pain) Qty: 30 0RF Referrals Follow up/Referrals: Octavio Kowalski MD [Primary Care Provider] - See instructions Clinical Impressions Clinical Impression: Laceration of left index finger Instructions Patient Instructions: DI for Laceration Repair Discharge ED Provider: Jerome Lee General Adult HPI General Chief complaint: Wound/Laceration Stated complaint: [id number] lac to LT Index finger Time Seen by Provider: 01/17/23 19:30 Mode of Arrival: Ambulatory Limitations: No Limitations Description of Symptoms (Recalled from ER Triage Doc. by RN): PT WITH LACERATION TO LEFT INDEX FINGER, AT [facility] History of Present Illness HPI narrative: Patient is a 52-year-old female presented to the emergency department with a left index finger laceration this occurred just prior to arrival with a kitchen knife. She is up-to-date with tetanus having a recent vaccination just a few months ago with a similar injury to her other hand. Injury is located on the dorsal aspect of the left index finger over the interphalangeal joint. Moderate bleeding. Direct pressure controlled prior to arrival. No injuries elsewhere Related Data Home Medications Medication Instructions Recorded Confirmed multivitamin 1 tab PO DAILY supplement 12/15/20 10/16/22 omeprazole 40 mg capsule,delayed 40 mg PO DAILY GERD 12/15/20 10/16/22 release Previous Rx's Medication Instructions Recorded metoprolol succinate 25 mg 25 mg PO DAILY High blood pressure 12/23/20 tablet,extended release 24 hr #30 tabs albuterol sulfate 90 mcg/actuation 1 inh inhalation QID PRN shortness 01/30/21 aerosol inhaler of breath or wheezing #8.5 grams azelastine 205.5 mcg (0.15 %) 2 spray intranasal HS #30 mL 03/01/21 nasal spray ibuprofen 600 mg tablet 600 mg PO Q6HP PRN Mild Pain #30 10/11/22 tabs Allergies Allergy/AdvReac Type Severity Reaction Status Date / Time guaifenesin [From Mucinex] Allergy Intermediate Swelling Verified 10/16/22 14:53 of Lip/Tongue/Throat [facility] Disclaimer: The information contained in this section may have been updated after the patient was seen, as this information can be updated by other users. Medical History Dyspnea on exertion History of 2019 novel coronavirus disease (COVID-19) Seasonal allergies Solitary pulmonary nodule Surgical History History of cardiac cath History of lateral meniscus repair of left knee History of total hysterectomy Family History Other No significant family history Social History Smoking Status: Never smoker alcohol intake: never substance use type: denies use current occupational status: unemployed Travel in the last 8 weeks: None household members: spouse housing: house ROS Obtained: Yes All systems reviewed & no additional complaints except as documented Physical Exam General General appearance: alert Respiratory Respiratory exam: Present normal lung sounds bilaterally; Absent respiratory distress Card
[2023-01-17 19:54] VITALS: BP 145/80; PULSE 70; RESP 18; TEMP 36.6; O2SAT 99
== END 2023-01-17 19:56 | disposition home or self-care (01) ==
PROVIDERS: Emergency Provider Student in an Organized Health Care Education/Training Program; PCP Family Medicine
DX: S61.211A Laceration without foreign body of left index finger without damage to nail, initial encounter (principal); W26.0XXA Contact with knife, initial encounter
CPT/HCPCS: 12001; 99282; 99283

== ENCOUNTER 2023-04-28 11:20 | Emergency (ER) | payer BC, SELFPAY ==
[2023-04-28 11:40] VITALS: BP 129/73; PULSE 81; RESP 18; TEMP 37; O2SAT 100; BMI 31.9
[2023-04-28 11:55] LABS: UTC Strep Screen (Rapid) Negative (Negative)
--- NOTE | 2023-04-28 11:59 | EXP.UTC ---
Discharge Plan Disposition Patient Disposition: Home, Self-Care Condition: Good Prescriptions Prescriptions: New azithromycin [Zithromax Z-Mu] 250 mg tablet See Rx Instructions .ROUTE .COMPLEX 5 Days Qty: 6 0RF Rx Instructions: For 250 mg dose pack: take 500 mg today (day 1), then 250 mg for 4 days (days 2-5) benzonatate 100 mg capsule 100 mg PO TID PRN (Reason: cough) Qty: 30 0RF methylprednisolone [Medrol (Mu)] 4 mg tablets,dose pack See Rx Instructions .Route .COMPLEX 6 Days Qty: 21 0RF Rx Instructions: taper pack; No Action multivitamin Tablet 1 tab PO DAILY omeprazole 40 mg capsule,delayed release(DR/EC) 40 mg PO DAILY Patient Comments: TAKE 1 CAPSULE BY MOUTH ONCE DAILY FOR 30 DAYS metoprolol succinate 25 mg tablet extended release 24 hr 25 mg PO DAILY Qty: 30 5RF albuterol sulfate 90 mcg/actuation HFA aerosol inhaler 1 inh INHALATION QID PRN (Reason: shortness of breath or wheezing) Qty: 8.5 1RF azelastine 205.5 mcg (0.15 %) spray,non-aerosol 2 spray INTRANASAL HS Qty: 30 3RF Rx Instructions: administer into each nostril ibuprofen [ibuprofen] 600 mg tablet 600 mg PO Q6HP PRN (Reason: Mild Pain) Qty: 30 0RF Referrals Follow up/Referrals: Octavio Kowalski MD [Primary Care Provider] - See instructions Activity Restrictions/Add. Instructions Additional Instructions/Restrictions: *Monitor Temp, Over the counter Motrin or Tylenol as directed/as needed Tylenol every 4 hours and Motrin every 6 hours (as long as your family doctor has told you that you can take it) for fever or pain. and straight to ER if unable to lower temp less than 101.0 after medication given *Warm salt water gargles may help to soothe the throat *Throat Lozenges? *Warm fluids like tea with honey may help to soothe the throat? *Sleep elevated *Humidifier/Vaporizer Your throat swab was sent for culture. Those results are typically sent to your primary care. Be sure to follow up in 2-3 days with your family doctor/primary care physician if no improvement so they can review those result and treat if necessary. If you don?t have a primary care doctor, I recommend you get one but in the mean time, you will have to return to a walk in clinic Follow up IMMEDIATELY for new or worsening symptoms or no Noticeable improvement over the next 48-72 hours. 911 for difficulty breathing or swallowing Clinical Impressions Clinical Impression: Sinusitis Qualifiers: Sinusitis location: unspecified location Chronicity: unspecified Qualified Code(s): J32.9 - Chronic sinusitis, unspecified Instructions Patient Instructions: DI for Sinusitis, Sinusitis Discharge ED Provider: Amber Ordaz [facility] General Stated complaint: congestion, cough, body aches, sore throat Mode of Arrival: Ambulatory Source of Information: Patient Limitations: No Limitations Time Seen by Provider: 04/28/23 11:59 Description of Symptoms (Recalled from Triage Doc. by RN): PATIENT C/O COUGH, BODY ACHES, SCRATCHY THROAT, AND DRAINAGE SINCE THIS MORNING HEENT Symptoms (Recalled from RN notes): Yes Resp Symptoms (Recalled from RN notes): Yes Skin Symptoms (Recalled from RN notes): No MS Symptoms (Recalled from RN notes): No Functional Status (Recalled from RN notes): WNL History of Present Illness Provider Complaint: Patient states that she has been having sinus congestion and pressure felt like she was getting a sinus infection States that then today she woke up and her congestion was worse and having scratchy throat, pressure behind her eyes, cough and body aches States that she came in to get checked Related Data Home Medications Medication Instructions Recorded Confirmed multivitamin 1 tab PO DAILY supplement 12/15/20 10/16/22 omeprazole 40 mg capsule,delayed 40 mg PO DAILY GERD 12/15/20 10/16/22 release Previous Rx's Medication Instruct
[2023-04-28 12:06] VITALS: BP 129/73; PULSE 81; RESP 18; TEMP 37; O2SAT 100
== END 2023-04-28 12:15 | disposition home or self-care (01) ==
PROVIDERS: Emergency Provider Nurse Practitioner; PCP Family Medicine
DX: J01.90 Acute sinusitis, unspecified (principal)
CPT/HCPCS: 87880; 99212; 99214; G0463

== ENCOUNTER 2023-11-20 12:48 | Outpatient (CLI) | payer BC, SELFPAY ==
--- NOTE | 2023-11-20 | CA_ITS ---
APPROVED REPORT EXAM: Comprehensive 2D, Doppler, and color-flow Echocardiogram Manager Of Financial Planning: Lauren Barton RT(R) Ht: 5 ft 5 in Wt: 181lbs BSA: 1.90 BP: 127/78 mmHg Indications: Murmur, CP, SOB, hyperlipidemia, hx COVID 2018. 2D Dimensions LVEF (Day's) 53.90 % F: 54 - 74 LV Volume 107.30 mL F: 46 - 106 LV Volume Index 56.5 mL/m2 F: 29 - 61 EF AP4 55.10 % EF AP2 51.9 % EF BP 53.9 % GL Strain -18.2 % M-Mode Dimensions RVDd 2.33 cm (0.9-2.6) LA Diam 2.83 cm (1.9-4.0) LVDd 4.69 cm (3.5-5.7) LVDs 3.65 cm (3.5-5.7) IVSd 0.79 cm (0.6-1.1) PWd 0.82 cm (0.6-1.1) EF (Teich) 44.70% FS 22.20% EDV (Teich) 101.90 mL ESV (Teich) 56.30 mL LV Diastology E Decel Time 173 (160-240 msec) E/A Ratio 1.2 Mitral Valve MV E Max Kristopher. 93.0 (40-130 cm/s) MV A Velocity 79.0 (40-130 cm/s) E/A Ratio 1.17 MV PHT 51.0 ms Left Ventricle The left ventricle is normal size. The left ventricular systolic function is normal. The left ventricular ejection fraction is within the normal range. There is normal left ventricular wall thickness. There is normal LV segmental wall motion. The left ventricular diastolic function is normal. LVEF is 55%. Right Ventricle The right ventricle is normal size. The right ventricular systolic function is normal. Atria The left atrium size is normal. The right atrium size is normal. There is no Doppler evidence of interatrial shunt. Aortic Valve The aortic valve opens well. There is no aortic valvular stenosis. No aortic regurgitation is present. Mitral Valve The mitral valve is normal in structure. No evidence of mitral valve stenosis. No Mitral Regurgitation. Tricuspid Valve The tricuspid valve leaflets are thin and pliable. Mild tricuspid regurgitation. RVSP is 25-30 mmHg. Pulmonic Valve The pulmonary valve is normal in structure. Trace pulmonic regurgitation. Great Vessels The aortic root is normal in size. The ascending aorta is normal in size. IVC is normal in size and collapses >50% with inspiration. Pericardium There is no pericardial effusion. Other Information Study Quality: Fair Conclusion Normal biventricular systolic function. Mild TR. RVSP is 25-30 mmHg. Electronically signed by : Zenaida Berry MD 11/24/2023 22:53:58
== END 2023-11-20 23:59 ==
LOC: RT 12:49
PROVIDERS: PCP Physician Assistant; Visit Provider Physician Assistant
DX: R01.1 Cardiac murmur, unspecified (principal)
CPT/HCPCS: 93306

== ENCOUNTER 2024-01-07 10:39 | Outpatient (CLI) | payer BC, SELFPAY ==
[2024-01-07 11:36] LABS: Blood Urea Nitrogen 19 mg/dl (7-17); Estimated Glomerular Filt Rate 66 ml/min (>60); GFR (African American) 80 ML/MIN (>60)
== END 2024-01-07 23:59 ==
LOC: LAB 10:40
PROVIDERS: PCP Physician Assistant; Visit Provider Internal Medicine
DX: R94.39 Abnormal result of other cardiovascular function study (principal)
CPT/HCPCS: 36415; 82565; 84520

== ENCOUNTER 2024-01-08 06:55 | Outpatient (CLI) | payer BC, SELFPAY ==
--- NOTE | 2024-01-08 06:59 | CT_ITS ---
APPROVED REPORT Marketing Database Coordinator: CLINICAL INDICATION Chest Pain TECHNIQUE Image Acquisition: A 128 slice MDCT scanner (indicoa View) was used for data acquisition. A noncontrast coronary calcium scan was performed. A CT attenuation threshold of 130 Hounsfield units (HU) was used for the detection of calcium in contiguous voxels of 1 sq mm in area to be counted as individual lesions. Bolus tracking in the ascending aorta with a threshold of 180 HU was performed. Immediately afterwards, ECG synchronized cardiac CT was then performed from the cardiac base to apex using retrospective gating with ECG tube current modulation. A total of 85 mL of Isovue 370 mg/mL contrast medium was administered at 5 mL/sec followed by a saline flush using a biphasic injection protocol. A tube voltage of 120 KVp was used. The patient received the following medications prior to the cardiac CT. 125 mg of oral metoprolol 15 mg of oral ivabradine 0.8 mg of sublingual nitroglycerin The average heart rate at the time of acquisition was 62 bpm and regular. Image Reconstruction Transaxial images were reconstructed at 0.67 mm slide thickness. Data was reviewed interactively on an advanced workstation capable of 2 and 3-dimensional displays in all conventional reconstruction formats, including multiplanar reformations, maximum intensity projections, curved multiplanar reformations, and volume rendered reconstructions. When applicable, selected routine images describing the relevant coronary anatomy and pathology were saved and sent to PACS. Complications None Technical Quality Overall image quality was good. Coronary artery opacification was adequate. Total DLP (Dose-Length Product) is 2002.5 mGy-cm. The reported value represents the total of one or more individual components during the CT acquisition of this date and at this time, and as such, the same value may appear in more than one CT report depending on the interpreting/reporting physicians. COMPARISON None FINDINGS CT Coronary Calcium Scoring LMA (Left Main Artery) = 0 LAD (Left Anterior Descending) = 0 LCX (Left Coronary Circumflex) = 0 RCA (Right Coronary Artery) = 0 Total Calcium Score = 0 using the AJ-130 method. The interpretation of the calcium heart score is based on the following continuum*: 0 = no calcified plaque detected (risk of coronary artery disease is very low ??? less than 5%) 1-10 = calcium detected in extremely minimal levels (risk of coronary diseases is still low ??? less than 10%) 11-100 = mild levels of plaque detected with certainty (mild or minimal narrowing of heart arteries is likely) 101-400 = definite,at least moderate levels of plaque detected (relatively high risk of a heart attack within 3-5 years) >401-999 = extensive levels of plaque detected (high risk of heart attack, high levels of vascular disease are present, high likelihood of at least one significant coronary narrowing) *The calcium heart score quantifies the burden of coronary calcification/plaque in the coronary arteries. The calcium heart score is not able to evaluate the presence or burden of non-calcified (i.e. soft) plaque. There is no identifiable calcification in the aortic valve, mitral annulus or mitral valve, pericardium, or myocardium. Coronary CT Angiography The coronary arterial system is right dominant. Quantitative Stenosis Grading: Left Main (LM): The left main originates normally from the left sinus of Valsalva. The LM bifurcates into the left anterior descending artery and left circumflex artery. The LM is patent with no evidence of atherosclerosis. Left Anterior Descending (LAD) and Diagonal Branches: The LAD gives off 2 diagonal branch(es). The LAD and its branches are patent with no evidence of atherosclerosis. There is no evidence of LAD-myocardial bridge. Left Circumflex (LCX) and Obtuse Marginals (OM): The LCX gives off 1 Obtuse Marginal (OM) branch(es). The LCX and its branches are patent with no evidence of atherosclerosis. Right Coronary Artery (RCA): The RCA originates normally from the right sinus of Valsalva. The RCA gives off a posterior descending artery (PDA) and posterolateral (PL) branches. The RCA and its branches are patent with no evidence of atherosclerosis. Non-Coronary Cardiac Findings: Analysis of the left ventricular (LV) structure and function was performed after 3-D reconstruction of the LV from axial images, with user-corrected automatic contouring for assessment of LV volumes and user-defined reconstruction from oblique planes for measurement of 3-D cardiac structure and function. -The left ventricle systolic function is low-normal (LVEF 50%). -There is no left atrial appendage filling defect. Two right pulmonary veins and two left pulmonary veins drain normally into the left atrium. -No pericardial thickening or calcification. -Central and branch pulmonary arteries in the [id number] are unremarkable. -Thoracic aorta within the visualized thoracic aortic-branches in the [id number] is unremarkable. Extracardiac Structures No significant extra-cardiac findings. Note, however, that this study is focused on the cardiac findings. IMPRESSION -Absence of coronary calcification with an Agatston score = 0 using the AJ-130 method. -No evidence of significant flow-limiting atherosclerosis of the coronary arteries. -CAD-RADS 0. Management recommendations per ACC/AHA guidelines*, as clinically appropriate. *Recommendations: CAD RADS 0: Reassurance. Consider non-atherosclerotic causes of chest pain. CAD RADS 1: Consider non-atherosclerotic causes of chest pain. Consider preventive therapy and risk factor modification. CAD RADS 2: Consider non-atherosclerotic causes of chest pain. Consider preventive therapy and risk factor modification, particularly for patients with nonobstructive plaque in multiple segments. CAD RADS 3: Consider further functional testing. Consider symptom-guided anti-ischemic and preventive pharmacotherapy as well as risk factor modification per published guideline statements. CAD RADS 4A: Consider further functional testing or invasive coronary angiography with revascularization per published guideline statements. Consider symptom-guided anti-ischemic and preventive pharmacotherapy as well as risk factor modification per published guideline statements. CAD RADS 4B: Invasive coronary angiography recommended with revascularization per published guideline statements. Consider symptom-guided anti-ischemic and preventive pharmacotherapy as well as risk factor modification per published guideline statements. CAD RADS 5: Consider invasive angiography and/or viability assessment with revascularization per published guideline statements. Consider symptom-guided anti-ischemic and preventive pharmacotherapy as well as risk factor modification per published guideline statements. CRITICAL RESULT None COMMUNICATION Per this written report The coronary and cardiac findings of this CCTA were reviewed, reported, and signed by Ford Berry MD (Senior Clinician) Conclusion Electronically signed by : Zenaida Berry MD 01/14/2024 11:14:11
[2024-01-08 07:09] VITALS: BMI 30.2
[2024-01-08] MEDS: METOPROLOL TARTRATE 50MG TABLET PO ×2 (07:25→08:10)
[2024-01-08] MEDS: IVABRADINE HCL 7.5MG TABLET PO (07:25)
[2024-01-08] MEDS: METOPROLOL TARTRATE 25MG TABLET 25 MG (07:26)
[2024-01-08 08:35] VITALS: BP 145/90; PULSE 72; RESP 18; O2SAT 99
[2024-01-08] MEDS: NITROGLYCERIN 0.4MG SL TABLET SL (08:35)
[2024-01-08 08:40] VITALS: BP 130/72; PULSE 60; RESP 18; O2SAT 98
[2024-01-08 08:45] VITALS: BP 110/72; PULSE 62; RESP 18; O2SAT 99
[2024-01-08 08:50] VITALS: BP 126/76; PULSE 64; RESP 18; O2SAT 100
[2024-01-08 08:55] VITALS: BP 126/69; PULSE 68; RESP 18; O2SAT 96
[2024-01-08] MEDS: SODIUM CHLORIDE 0.9% 10ML SYR (RAD ONLY) 10 ML IV (09:14)
[2024-01-08] MEDS: 0.9 % SODIUM CHLORIDE 50 ML VIAL IV (09:14)
[2024-01-08] MEDS: IOPAMIDOL-370 (76%);100ML BOTTLE 85 ML IV (09:14)
== END 2024-01-08 23:59 | disposition home or self-care (01) ==
PROVIDERS: PCP Physician Assistant; Visit Provider Nurse Practitioner
DX: R06.09 Other forms of dyspnea (principal); R94.31 Abnormal electrocardiogram [ECG] [EKG]; Z82.49 Family history of ischemic heart disease and other diseases of the circulatory system
CPT/HCPCS: 75571; 75574; Q9967

== ENCOUNTER 2024-01-23 13:40 | Outpatient (CLI) | payer BC, SELFPAY ==
--- NOTE | 2024-01-23 13:51 | US_ITS ---
FINAL REPORT CLINICAL HISTORY: CAROTID BRUIT,LT JAW AND NECK PAIN COMPARISON: None FINDINGS: ULTRASOUND SOFT TISSUES NECK: The parotid and submandibular glands are unremarkable in appearance bilaterally. The area of interest on the left side of the neck reveals a few small nonspecific scattered lymph nodes,, measuring up to 1.4 cm in length. No definite focal mass is identified. IMPRESSION: Nonspecific scattered lymph nodes are present bilaterally, without evidence of a focal mass. If further imaging is clinically indicated, CT of the neck with contrast is suggested for further evaluation. Reviewed, Interpreted and Dictated by Mary Samaniego MD Transcribed by Fátima Posada Authenticated and [facility]
== END 2024-01-23 23:59 | disposition home or self-care (01) ==
LOC: RAD 13:40
PROVIDERS: PCP Physician Assistant; Visit Provider Nurse Practitioner Family
DX: R09.89 Other specified symptoms and signs involving the circulatory and respiratory systems (principal); R68.84 Jaw pain; M54.2 Cervicalgia
CPT/HCPCS: 76536

== ENCOUNTER 2024-01-30 09:05 | Outpatient (CLI) | payer BC, SELFPAY ==
--- NOTE | 2024-01-30 | CA_ITS ---
FINAL REPORT TECHNIQUE: Color Doppler, duplex Doppler and talbot scale sonography of the bilateral neck arterial vasculature was performed. Velocities were measured in the carotid arteries. Stenosis evaluation based on the validated velocity criteria. CLINICAL HISTORY: Hyperlipidemia, neck/jaw pain, non-TMJ, family history CAD. COMPARISON: None FINDINGS: The peak systolic velocity of the right common carotid artery is 89 cm/s. The peak systolic velocity of the right internal carotid artery is 111 cm/s and end diastolic velocity 56 cm/s. The ICA/CCA ratio is 1.3. No significant plaque is present. The right external carotid artery is patent. The right vertebral artery is patent with antegrade flow. The peak systolic velocity of the left common carotid artery is 69 cm/s. The peak systolic velocity of the left internal carotid artery is 104 cm/s and end diastolic velocity 40 cm/s. The ICA/CCA ratio is 1.5. No significant plaque is present. The left external carotid artery is patent.The left vertebral artery is patent with antegrade flow. IMPRESSION: No evidence of carotid stenosis bilaterally. Bilateral patent vertebral arteries with antegrade flow. If indicated, CTA or MRA could further evaluate. Reviewed, Interpreted and Dictated by Kwame Arvizu III, MD Transcribed by Gertrude Gavin Authenticated and [facility]
== END 2024-01-30 23:59 | disposition home or self-care (01) ==
LOC: RT 09:06
PROVIDERS: PCP Physician Assistant; Visit Provider Nurse Practitioner Family
DX: R09.89 Other specified symptoms and signs involving the circulatory and respiratory systems (principal)
CPT/HCPCS: 93880

== ENCOUNTER 2024-03-18 09:26 | Outpatient (CLI) | payer BC, SELFPAY ==
--- NOTE | 2024-03-18 09:31 | XR_ITS ---
FINAL REPORT CLINICAL HISTORY: lt hip pain x3 weeks, states unable to lie flat for very long COMPARISON: None FINDINGS: LEFT HIP: Two views of the left hip with an AP view of the pelvis demonstrate no acute fracture or dislocation. The joint spaces appear normal. The visualized bony structures are well aligned. No soft tissue abnormality is seen. IMPRESSION: No acute bony abnormality. Reviewed, Interpreted and Dictated by Mary Samaniego MD Transcribed by Gertrude Gavin Authenticated and [facility]
--- OUTSIDE RECORDS SUMMARY | 2024-03-18 09:31 | XMS_ITS | Clinical Summary ---
Author Name Unknown Address [address] [place] [address] Phone Organization [facility] Address [address] [place] [address] Phone Care Team Providers Care Hydraulic Spinner Name Role Phone Brenton PEOPLES, Rafael Encarnacion Unavailable [phone] MELANI PRINCE Primary Care Provider [phone] Reason for Visit and Chief Complaint The Chief Complaint is: left knee pain Problems Includes: Problems addressed during this encounter and other active Problems All Visits Onset Date Resolved Date Provider Condition S tatus Joint Pain in the Left Knee 12/30/2020 Christiano Castillo MD Active Last Documented On 1 8:35AM ; [facility] Plan of Treatment Pending Tests Order Diagnosis Results Due Ordering Shashank campbell Radiology - MRI MRI L Knee 12/08/21 Darnell Salinas PA-C Last Documented On 2 4:08PM ; [facility] Instructions to patient Lose weight Last Documented On 2 1:45PM ; [facility] Assessments Includes: Assessments from this encounter Findings 51-year-old female visiting for second postoperative visit after left knee arthroscopy with partial medial meniscectomy. Date of surgery 08/10/21. she has some medial sided pain 3-4 weeks ago she felt a twinge while turning now having a lot of pain standing least swelling trouble with stairs can be incompletely and has some popping. She is 4 months out of a status post partial medial meniscectomy of the left knee and very disappointed in what has happened to her. Results were good after surgery but now her knee is getting worse. - Last Documented On 12/05/2021 6:48PM ; [facility] 12/05/2021 patient is back for an MRI repeat exam of the left knee did show some abnormalities of the left medial meniscectomy still having a lot of pain in that area and the patient is visibly frustrated today essentially wanting to know what the next step would be for possible surgical management. She states that she has good range of motion however has not been able to stop the pain that radiates into the medial joint space. - Last Documented On 12/05/2021 6:48PM ; [facility] Physical exam: - Last Documented On 12/05/2021 6:48PM ; [facility] Well-appearing in no acute distress. - Last Documented On 12/05/2021 6:48PM ; [facility] Evaluation of the left lower extremity: Incisions are healing well no evidence of infection. There is no evidence of surrounding erythema, warmth, induration, fluctuance, or wound dehiscence. Range of motion is from 0 - 120?of flexion. There is minimal tenderness along the medial and lateral joint line. Knee is stable to varus and valgus stress as well as anterior and posterior drawer. Able to do a straight leg raise with good quad activation. Sensation intact in the saphenous, sural, deep peroneal, superficial peroneal, and tibial distribution. Able to fire EHL, FHL, gastroc, soleus, peroneals, and tibialis anterior. Warm and well-perfused distally. - Last Documented On 12/05/2021 6:48PM ; [facility] Assessment and plan: - Last Documented On 12/05/2021 6:48PM ; [facility] 51-year-old female has had a history of 2 knee surgeries 1 medial meniscus repair and then the second surgery was to take out the repair and do a medial meniscectomy. We did get a repeat MRI that shows still some medial meniscus pathologies that still giving her some symptom issues. I did discuss with the patient that there might always be some sort of pain response to that area and that no surgery can take that pain away this was 1 of the risks of surgery. I do believe that the patient still is convinced that there could be a procedure that could give her some relief. I did discuss with her the MRI and that there is some evidence of a meniscal tear in the posterior horn of the medial meniscus. I will have her follow up with Dr. Farris to discuss further options of what the next step would be. - Last Documented On 12/05/2021 6:48PM ; [facility] Instructions Includes: Instructions from this encounter Instructions to patient Lose weight Last Documented On 2 1:45PM ; [facility] Medical Equipment - Implanted Devices Includes: Current Devices No Medical Equipment Recorded Medications Includes: Medications discussed during this encounter and other current Medications Current Medications (continue as prescribed) Hyoscyamine Sulfate 0.125 MG Sublingual Tablet Subling ual 11/29/2021 Provider: Diagnosis: Last Documented On 2 1:44PM By Kadie Ovalle ; [facility] Ondansetron 4 MG Oral Tablet Disintegrating 11/29/2021 Provider: Diagnosis: Last Documented On 2 1:44PM By Kadie Ovalle ; [facility] Vitamin D3 250 MCG (28647 UT) Oral Capsule 022 Provider: Diagnosis: Last Documented On 2 2:35PM By Kadie Ovalle ; [facility] B Complex-B12 Oral Tablet 11/24/2021 Provider: Diagnosis: Last Documented On 2 2:35PM By Kadie Ovalle ; [facility] Past Medications on file Contrave 8-90 MG Oral Tablet Extended Release 12 Hour 11/24/2021 - 12/24/2021 Provider: Diagnosis: Last Documented On 2 2:35PM By Kadie Ovalle ; [facility] Aspirin EC 81 MG Oral Tablet Delayed Release 08/09/2021 - 08/23/2021 Provider: Rafael Farris MD Diagnosis: once a day Last Documented On 7:09PM By Rafael Farris M.D. ; [facility] Zofran 4 MG Oral Tablet 08/09/2021 - 08/21/2021 Provid er: Rafael Farris MD Diagnosis: 1 tablet every 6-8 hrs for post op nausea Last Documented On 1 7:08PM By Rafael Farris M.D. ; [facility] oxyCODONE HCl 5 MG Oral Tablet 08/09/2021 - 08/12/2021 Provider: Rafael Farris MD Diagnosis: 1-2 tablets by mouth every 4-6 hrs for post op p ain Last Documented On 1 7:10PM By Rafael Farris M.D. ; [facility] oxyCODONE HCl 5 MG Oral Tablet 03/03/2021 - 03/06/2021 Provider: Rafael Farris MD Diagnosis: 1-2 po q 4-6h 1-2 tablets every 4-6hrs for post op pain Last Documented On 1 5:38PM By Rafael Farris M.D. ; [facility] Zofran 4 MG Oral Tablet 03/01/2021 - 03/13/2021 Provid er: Rafael Farris MD Diagnosis: 1 tablet every 6-8 hrs for post op nausea Last Documented On 1 9:21AM By Lianne Gamboa ; [facility] Phenergan 25 MG RE SUPP 06/01/2008 - 06/06/2008 Provid er: Bari Ambriz MD Diagnosis: cb [phone] Last Documented On 8 1:35PM By Marylu Rendon ; [facility] Percocet 5-325 MG OR TABS 05/26/2008 - 05/31/2008 Prov ider: Bari Ambriz MD Diagnosis: cb Last Documented On 8 9:13AM By Marylu Rendon ; [facility] Medications Administered Includes: Administered Medications from this encounter No Administered Medications Recorded Vital Signs Includes: Vital Signs from this encounter Vital Name 12/05/2021 01:45P Blood Pressure Sitting (mmHg) 122/76 Pulse Rate-Sitting (bpm) 76 Height (in) 65 Weight (lb) 178.8 Body Mass Index (kg/m2) 29.8 Body Surface Area (m2) 1.9 Note: aek Last Documented: On 12/05/2021 1:49PM ; [facility] Results Includes: Results discussed during this encounter No Results Recorded For Specified Dates History of Present Illness Includes: History of Present Illness from this encounter SHAILESH Pleitez is a 51 year old female. - Allergy list reviewed - Problem list reviewed - Medication reconciliation performed - Medication list reviewed - Medication list reviewed with patient Social History Description Last Updated Not a current smoker. 11/24/2021 Last Documented On 2 1:45PM ; [facility] Non-smoker 12/30/2020 Last Documented On 2 1:45PM ; [facility] Caffeine use 12/30/2020 Last Documented On 2 1:45PM ; [facility] No recent change in diet 12/30/2020 Last Documented On 2 1:45PM ; [facility] Not a current smoker. 12/30/2020 Last Documented On 2 1:45PM ; [facility] Not exercising regularly 12/30/2020 Last Documented On 2 1:45PM ; [facility] Not using alcohol 12/30/2020 Last Documented On 2 1:45PM ; [facility] Not using drugs 12/30/2020 Last Documented On 2 1:45PM ; [facility] Smoking Status Unknown Procedures and Surgical History Includes: Procedures from this encounter Procedures Code Diagnosis Performing Provider Service L ocation Service Date use of tobacco assessment performed 1000F Last Documented On 2 1:45PM ; [facility] no influenza immunization patient refuse d Last Documented On 2 1:45PM ; [facility] Medical History Includes: Medical History addressed during this encounter Description Last Updated Heartburn / Acid Reflux 12/30/2020 Last Documented On 2 1:45PM ; [facility] Hypertension 12/30/2020 Last Documented On 2 1:45PM ; [facility] Hysterectomy 12/30/2020 Last Documented On 2 1:45PM ; [facility] No recent immunization for flu 1 Last Documented On 2 1:45PM ; [facility] No recent immunization for pneumococcal pneumonia 12/30/2020 Last Documented On 2 1:45PM ; [facility] Past Surgical History: trigger thumb rel ease, elbow deprivement 12/30/2020 Last Documented On 2 1:45PM ; [facility] Family History Includes: Family History addressed during this encounter Description Last Updated Diabetes mellitus 12/30/2020 Last Documented On 2 1:45PM ; [facility] Family history of cancer 12/30/2020 Last Documented On 2 1:45PM ; [facility] Family history of heart disease 12/31/19 21 Last Documented On 2 1:45PM ; [facility] Family history of osteoporosis 1 Last Documented On 2 1:45PM ; [facility] Family history of rheumatoid arthritis 0 12/30/2020 Last Documented On 2 1:45PM ; [facility] Family history of thromboembolic disease 12/30/2020 Last Documented On 2 1:45PM ; [facility] Stroke / Seizures 12/30/2020 Last Documented On 2 1:45PM ; [facility] Review of Systems Includes: Review of Systems from this encounter Systemic: Not feeling tired, no recent weight loss, and no recent weight gain. Head: No headache and no sinus pain. Eyes: No vision problems, no Cataracts, no Glasses/Contacts, and no Glaucoma. Otolaryngeal: No hearing loss and no tinnitus. Cardiovascular: No chest pain or discomfort, no palpitations, no Hypertension, and no High Cholesterol. Pulmonary: No daytime asthma symptoms and no chronic cough. No wheezing. Gastrointestinal: Heartburn. No abdominal pain. No Indigestion, no Acid Reflux, no Peptic Ulcer, no GI Stomach Bleed, and no Ulcers. Endocrine: No hot flashes, no muscle weakness, no Diabetes, no Hypothyroid, and no Hyperthyroid. Hematologic: No easy bleeding, no tendency for easy bruising, and no Anemia. Musculoskeletal: No Arthritis and no lower back pain. No soft tissue swelling and no localized joint pain. Neurological: No dizziness, no convulsions, and no numbness. Psychological: No anxiety, no emotional lability, no depression, and no insomnia. Not crying for no reason. Skin: No dry skin. No Ulcers, no Scars, and no rash. Allergic and Immunologic: No complaint of seasonal allergic reaction. Mental Status Includes: Mental Status from this encounter Description No anxiety Functional Status Includes: Functional Status from this encounter No Functional Status Recorded Physical Exam Includes: Physical Exam from this encounter Allergies Includes: Active Allergies No Known Allergies Encounters Encounter Provider Location Date Check-In Time Check- Out Time Diagnosis Follow Up Darnell Salinas PA-C [facility] B 2 1:22PM 2:23PM Insurance Includes: Active Insurance Policies Plan Name Member ID Group # Subscriber Relationship Effect whitney Dates 1 - [facility] [id number] MELANI PLEITEZ 09/23/2020 - Unknown Clinical Notes Includes: Clinical Notes from this encounter No Clinical Notes Recorded
--- OUTSIDE RECORDS SUMMARY | 2024-03-18 09:31 | XMS_ITS | Clinical Summary ---
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 Name Role Phone Brenton PEOPLES, Rafael Encarnacion Unavailable [phone] MELANI PRINCE Primary Care Provider [phone] Reason for Referral Date Encounter Description Provider Reason for Referral 03/09/22 Follow Up Rafael Farris MD Referral To Physician; Referral To Physician Reason for Visit and Chief Complaint The Chief Complaint is: Left Knee pain Problems Includes: Problems addressed during this encounter and other active Problems All Visits Onset Date Resolved Date Provider Condition S tatus Joint Pain in the Left Knee 12/30/2020 Christiano Castillo MD Active Last Documented On 1 8:35AM ; [facility] Plan of Treatment Pending Tests Order Diagnosis Results Due Ordering P roviriley Radiology - MRI MRI L Knee 07/14/21 Rafael Blair MD Last Documented On 1 1:16PM ; [facility] Instructions to patient Lose weight Last Documented On 2 9:38AM ; [facility] Assessments Includes: Assessments from this encounter Findings [...] is getting worse. - Last Documented On 03/09/2022 10:15AM ; [facility] 12/05/2021 patient is back for an MRI [...] medial joint space. - Last Documented On 03/09/2022 10:15AM ; [facility] 12/12/21- patients presenting for follow-up evaluation. Unfortunately she has had recurrence of pain in the medial side of the knee. She had a twisting injury almost 2 months ago and had reports of progressively worsening pain over the medial side of the knee since that time. Her symptoms are very similar to the pain she has had in the past with her previous meniscus tears. She is here today to discuss treatment options further. - Last Documented On 03/09/2022 10:15AM ; [facility] 01/23/22- return for follow-up. Unfortunately she continues with the same symptoms she has been having of pain over the medial side of the knee. Her symptoms continue to affect her quality of life and activities of daily living. Pain continues to be on the medial side of the joint. - Last Documented On 03/09/2022 10:15AM ; [facility] 03/09/22- follow up visit now 7 months status post left knee arthroscopy with partial medial meniscectomy,she is scheduled for surgey on the left knee but comes today for discussion about the upcoming surgery. She is just needing reassurance that this is the correct treatment plan for her. - Last Documented On 03/09/2022 10:15AM ; [facility] Physical exam: - Last Documented On 03/09/2022 10:15AM ; [facility] CONSTITUTIONAL: Well developed, well groomed, well nourished patient in no acute distress who appears stated age, height and weight. - Last Documented On 03/09/2022 10:15AM ; [facility] PSYCHIATRIC: The patient is alert and oriented to person, place, date and situation. Mood and affect are normal for current situation. - Last Documented On 03/09/2022 10:15AM ; [facility] NEUROLOGICAL: Sensation normal bilateral upper and lower extremities. - Last Documented On 03/09/2022 10:15AM ; [facility] LYMPHATIC: No pitting edema noted in the lower extremities. - Last Documented On 03/09/2022 10:15AM ; [facility] SKIN: No lesions noted on upper or lower extremities. Skin is dry, warm and with normal turgor. - Last Documented On 03/09/2022 10:15AM ; [facility] VASCULAR: No swelling in upper or lower extremities other than described below in extremity exam. Dorsalis Pedis Pulses normal in lower extremities. - Last Documented On 03/09/2022 10:15AM ; [facility] GAIT AND STATION: antalgic gait without assistive devices. Station normal. - Last Documented On 03/09/2022 10:15AM ; [facility] LEFT KNEE: No Deformity. No discoloration. No Atrophy. tenderness to palpation over the medial joint line that reproduces her symptoms. No crepitation. No effusion. Active Range of Motion: Extension 0 degrees, Flexion 130 degrees. Passive Range of Motion: not limited. Strength: 5/5 quadriceps. 5/5 Hamstrings. Negative Zo's. Negative posterior drawer. Negative valgus instability. Negative varus instability. Positive Medial McMurrays with pain over the medial joint line. Negative Lateral McMurrays. Normal patella mobility. Negative patella apprehension. - Last Documented On 03/09/2022 10:15AM ; [facility] Sensation intact in the saphenous, sural, deep peroneal, superficial peroneal, and tibial distribution. Able to fire EHL, FHL, gastroc, soleus, peroneals, and tibialis anterior. Warm and well-perfused distally with 2+ dorsalis pedis pulse. - Last Documented On 03/09/2022 10:15AM ; [facility] RIGHT KNEE: No Deformity. Normal Q angle. No discoloration. No Atrophy. medial joint line and pez bursa tenderness to palpation. No crepitation. No effusion. Active Range of Motion: Extension 0 degrees, Flexion 135 degrees. Passive Range of Motion: not limited. Strength: 5/5 quadriceps. 5/5 Hamstrings. Negative Zo's. Negative posterior drawer. Negative valgus instability. Negative varus instability.. Normal patella mobility. Negative patella apprehension. - Last Documented On 03/09/2022 10:15AM ; [facility] Assessment and plan: - Last Documented On 03/09/2022 10:15AM ; [facility] 52-year-old female has had a history of 2 knee surgeries 1 medial meniscus repair and then the second surgery was to take out the repair and do a medial meniscectomy. She is scheduled for another upcoming surgery at the end of this month for another medial meniscectomy in [facility] i will be aggressive in treatment during surgery. She is here wanting reassurance that this is the right treatment plan for her. We did talk about treatment plan and surgical procedure with recovery times and all risk and benefits. She is still having daily pain the affects her daily life activity. She has no catching or grabbing in the knee but has very sharp shooting pain. I do feel the surgery is a reasonable treatment for her based on the MRI and post op pictures i do feel there is changes in the knee that would warrant a knee scope to make sure there is nothing more i can repair and get her back to a pain free life. we did discuss alternative could be trying an off top loader brace. to see if we can relieve some of the symptoms with the brace. I think if most of her symptoms are related to increased stress from a deficient medial meniscus she would get some benefit from this. If she does get benefit this may suggest that a simple knee scope would not likely solve the problem and we probably will just wait to do a partial knee replacement in the future. she is interested in proceeding in this direction at this point as she does not want to trial another surgery currently. She would like to cancel surgery at this time and try more conservative measures we did discuss injections to try to aid in symptom relief. Today we will get her fitted in a medial off loading knee brace and see her back to recheck as needed after a period of wearing the brace to see how she feels. I regards to the right knee pain i think she is over compensating for left knee pain causing this pain. we can look into the right knee further in the future as needed. - Last Documented On 03/09/2022 10:15AM ; [facility] Instructions Includes: Instructions from this encounter Instructions to patient Lose weight Last Documented On 2 9:38AM ; [facility] Medical Equipment - Implanted Devices Includes: Current Devices No Medical Equipment Recorded Medications Includes: Medications discussed during this encounter and other current Medications Current Medications (continue as prescribed) Hyoscyamine Sulfate 0.125 MG Sublingual Tablet Subling ual 11/29/2021 Provider: Diagnosis: Last Documented On 2 1:44PM By Kadie Ovalle ; [facility] Ondansetron 4 MG Oral Tablet Disintegrating 11/29/2021 Provider: Diagnosis: Last Documented On 2 1:44PM By Kadie Ovalle ; [facility] Vitamin D3 250 MCG (59981 UT) Oral Capsule 022 Provider: Diagnosis: Last Documented On 2 2:35PM By Kadie Ovalle ; [facility] B Complex-B12 Oral Tablet 11/24/2021 Provider: Diagnosis: Last Documented On 2 2:35PM By Kadie Ovalle ; [facility] Past Medications on file Contrave 8-90 MG Oral Tablet Extended Release 12 Hour 11/24/2021 - 12/24/2021 Provider: Diagnosis: Last Documented On 2 2:35PM By Kadie Ovalle ; [facility] Aspirin EC 81 MG Oral Tablet Delayed Release 08/09/2021 - 08/23/2021 Provider: Rafael Farris MD Diagnosis: once a day Last Documented On 1 7:09PM By Rafael Farris M.D. ; [facility] Zofran 4 MG Oral Tablet 08/09/2021 - 08/21/2021 Provid er: Rafael Farris MD Diagnosis: 1 tablet every 6-8 hrs for post op nausea Last Documented On 1 7:08PM By Rafael Farris M.D. ; [facility] oxyCODONE HCl 5 MG Oral Tablet 08/09/2021 - 08/12/2021 Provider: Rafael Farris MD Diagnosis: 1-2 tablets by mouth every 4-6 hrs for post op p ain Last Documented On 1 7:10PM By Rafael Farris M.D. ; [facility] oxyCODONE HCl 5 MG Oral Tablet 03/03/2021 - 03/06/2021 Provider: Rafael Farris MD Diagnosis: 1-2 po q 4-6h 1-2 tablets every 4-6hrs for post op pain Last Documented On 1 5:38PM By Rafael Farris M.D. ; [facility] Zofran 4 MG Oral Tablet 03/01/2021 - 03/13/2021 Provid er: Rafael Farris MD Diagnosis: 1 tablet every 6-8 hrs for post op nausea Last Documented On 1 9:21AM By Lianne Gamboa ; [facility] Phenergan 25 MG RE SUPP 06/01/2008 - 06/06/2008 Provid er: Bari Ambriz MD Diagnosis: cb [phone] Last Documented On 8 1:35PM By Marylu Rendon ; [facility] Percocet 5-325 MG OR TABS 05/26/2008 - 05/31/2008 Prov ider: Bari Ambriz MD Diagnosis: cb Last Documented On 8 9:13AM By Marylu Rendon ; [facility] Medications Administered Includes: Administered Medications from this encounter No Administered Medications Recorded Vital Signs Includes: Vital Signs from this encounter Vital Name 03/09/2022 09:42A Blood Pressure Sitting (mmHg) 148/79 Pulse Rate-Sitting (bpm) 73 Height (in) 65 Weight (lb) 188 Body Mass Index (kg/m2) 31.3 Body Surface Area (m2) 1.9 Note: dp Last Documented: On 03/09/2022 9:43AM ; [facility] Results Includes: Results discussed during this encounter No Results Recorded For Specified Dates History of Present Illness Includes: History of Present Illness from this encounter SHAILESH Pleitez is a 52 year old female. - Allergy list reviewed - Problem list reviewed - Medication list reviewed - Patient pain level from 1-10: 7 Social History Description Last Updated No recent change in diet 01/23/2022 Last Documented On 2 9:38AM ; [facility] Not a current smoker. 11/24/2021 Last Documented On 2 9:38AM ; [facility] Non-smoker 12/30/2020 Last Documented On 2 9:38AM ; [facility] Caffeine use 12/30/2020 Last Documented On 2 9:38AM ; [facility] No recent change in diet 12/30/2020 Last Documented On 2 9:38AM ; [facility] Not a current smoker. 12/30/2020 Last Documented On 2 9:38AM ; [facility] Not exercising regularly 12/30/2020 Last Documented On 2 9:38AM ; [facility] Not using alcohol 12/30/2020 Last Documented On 2 9:38AM ; [facility] Not using drugs 12/30/2020 Last Documented On 2 9:38AM ; [facility] Smoking Status Unknown Procedures and Surgical History Includes: Procedures from this encounter Procedures Code Diagnosis Performing Provider Service L ocation Service Date use of tobacco assessment performed 1000F Last Documented On 2 9:38AM ; [facility] follow-up visit in one month with PCP fo r elevated BP Last Documented On 2 9:44AM ; [facility] referral to physician Last Documented On 2 9:38AM ; [facility] referral to physician Last Documented On 2 9:44AM ; [facility] Medical History Includes: Medical History addressed during this encounter Description Last Updated Heartburn / Acid Reflux 12/30/2020 Last Documented On 2 9:38AM ; [facility] Hypertension 12/30/2020 Last Documented On 2 9:38AM ; [facility] Hysterectomy 12/30/2020 Last Documented On 2 9:38AM ; [facility] No recent immunization for flu 1 Last Documented On 2 9:38AM ; [facility] No recent immunization for pneumococcal pneumonia 12/30/2020 Last Documented On 2 9:38AM ; [facility] Past Surgical History: trigger thumb rel ease, elbow deprivement 12/30/2020 Last Documented On 2 9:38AM ; [facility] Family History Includes: Family History addressed during this encounter Description Last Updated Family history of systemic hypertension 01/23/2022 Last Documented On 2 9:38AM ; [facility] Diabetes mellitus 12/30/2020 Last Documented On 2 9:38AM ; [facility] Family history of cancer 12/30/2020 Last Documented On 2 9:38AM ; [facility] Family history of heart disease 12/31/19 21 Last Documented On 2 9:38AM ; [facility] Family history of osteoporosis 1 Last Documented On 2 9:38AM ; [facility] Family history of rheumatoid arthritis 0 12/30/2020 Last Documented On 2 9:38AM ; [facility] Family history of thromboembolic disease 12/30/2020 Last Documented On 2 9:38AM ; [facility] Stroke / Seizures 12/30/2020 Last Documented On 2 9:38AM ; [facility] Review of Systems Includes: Review [...] and no chronic cough. No wheezing. Gastrointestinal: No heartburn and no abdominal pain. No Indigestion, no Acid Reflux, [...] Encounters Encounter Provider Location Date Check-In Time Check-Out Time Diagnosis Follow Up Rafael Farris MD [facility] 2 9:37AM 10:11AM Insurance Includes: Active Insurance Policies Plan Name Member ID Group # Subscriber Relationship Effect whitney Dates 1 - [facility] [id number] MELANI PLEITEZ 09/23/2020 - Unknown Clinical Notes Includes: Clinical Notes from this encounter No Clinical Notes Recorded
--- OUTSIDE RECORDS SUMMARY | 2024-03-18 09:31 | XMS_ITS | Clinical Summary ---
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 Name Role Phone Brenton PEOPLES, Rafael Encarnacion Unavailable [phone] MELANI PRINCE Primary Care Provider [phone] Reason for Visit and Chief Complaint The Chief Complaint is: left knee pain Problems Includes: Problems addressed during this encounter and other active Problems All Visits Onset Date Resolved Date Provider Condition S tatus Joint Pain in the Left Knee 12/30/2020 Christiano Castillo MD Active Last Documented On 1 8:35AM ; [facility], [facility] Plan of Treatment Pending Tests Order Diagnosis Results Due Ordering Shashank campbell Radiology - MRI MRI L Knee 07/14/21 Rafael Blair MD Last Documented On 1 1:16PM ; [facility], [facility] Instructions to patient Lose weight Last Documented On 2 11:01AM ; [facility], [facility] Assessments Includes: Assessments from this encounter Findings [...] is getting worse. - Last Documented On 12/13/2021 8:30AM ; [facility] 12/05/2021 patient is back for an MRI [...] medial joint space. - Last Documented On 12/13/2021 8:30AM ; [facility], [facility] 12/12/21- patients presenting for follow-up evaluation. Unfortunately [...] treatment options further. - Last Documented On 12/13/2021 8:30AM ; [facility] Physical exam: - Last Documented On 12/13/2021 8:30AM ; [facility] CONSTITUTIONAL: Well developed, well groomed, well nourished patient in no acute distress who appears stated age, height and weight. - Last Documented On 12/13/2021 8:30AM ; [facility] PSYCHIATRIC: The patient is alert and oriented to person, place, date and situation. Mood and affect are normal for current situation. - Last Documented On 12/13/2021 8:30AM ; [facility] NEUROLOGICAL: Sensation normal bilateral upper and lower extremities. - Last Documented On 12/13/2021 8:30AM ; [facility] LYMPHATIC: No pitting edema noted in the lower extremities. - Last Documented On 12/13/2021 8:30AM ; [facility] SKIN: No lesions noted on upper or lower extremities. Skin is dry, warm and with normal turgor. - Last Documented On 12/13/2021 8:30AM ; [facility] VASCULAR: No swelling in upper or lower extremities other than described below in extremity exam. Dorsalis Pedis Pulses normal in lower extremities. - Last Documented On 12/13/2021 8:30AM ; [facility], [facility] GAIT AND STATION: antalgic gait without assistive devices. Station normal. - Last Documented On 12/13/2021 8:30AM ; [facility] LEFT KNEE: No Deformity. No discoloration. No [...] Negative patella apprehension. - Last Documented On 12/13/2021 8:30AM ; [facility] Sensation intact in the saphenous, sural, deep peroneal, superficial peroneal, and tibial distribution. Able to fire EHL, FHL, gastroc, soleus, peroneals, and tibialis anterior. Warm and well-perfused distally with 2+ dorsalis pedis pulse. - Last Documented On 12/13/2021 8:30AM ; [facility] RIGHT KNEE: No Deformity. Normal Q angle. No discoloration. No Atrophy. No tenderness to palpation. No crepitation. No effusion. Active Range of Motion: Extension 0 degrees, Flexion 135 degrees. Passive Range of Motion: not limited. Strength: 5/5 quadriceps. 5/5 Hamstrings. Negative Zo's. Negative posterior drawer. Negative valgus instability. Negative varus instability.. Normal patella mobility. Negative patella apprehension. - Last Documented On 12/13/2021 8:30AM ; [facility] Assessment and plan: - Last Documented On 12/13/2021 8:30AM ; [facility], [facility] 51-year-old female has had a history of 2 knee surgeries 1 medial meniscus repair and then the second surgery was to take out the repair and do a medial meniscectomy. We did get a repeat MRI that shows still some medial meniscus pathologies that still giving her some symptom issues. unclear how much of this is just postsurgical change versus possibly a new acute tear. I did review her postoperative imaging and intraoperative findings with her. My concern with repeat meniscectomy at this point is that we may essentially remove all of the remaining meniscal tissue. I want to give this a chance to potentially improve on its own without needing to return back for a third surgery with likely complete loss of meniscus at that time. I have recommended for trial of a cortisone injection to see if this can at least reduce some of the symptoms allow her to return back to a acceptable level of function. Ultimately if she does not improve we will likely have to consider repeat arthroscopy. cleanly to proceed with injection today and have her follow-up in about 6-8 weeks to see how she has done. - Last Documented On 12/13/2021 8:30AM ; [facility] After sterile prep with alcohol, using sterile technique and anterior-lateral approach, 8 cc of marcaine & 40 mg of Kenalog was injected intra-articularly to the left knee. Hemostasis was obtained and the injection site was dressed. Patient tolerated the procedure without issues. Will ice for 10-15 minutes once or twice later today. - Last Documented On 12/13/2021 8:30AM ; [facility], [facility] 51-year-old female visiting for second postoperative visit [...] is getting worse. - Last Documented On 12/13/2021 8:30AM ; [facility] 12/05/2021 patient is back for an MRI [...] medial joint space. - Last Documented On 12/13/2021 8:30AM ; [facility] Physical exam: - Last Documented On 12/13/2021 8:30AM ; [facility] Well-appearing in no acute distress. - Last Documented On 12/13/2021 8:30AM ; [facility] Evaluation of the left lower extremity: Incisions [...] and well-perfused distally. - Last Documented On 12/13/2021 8:30AM ; [facility] Assessment and plan: - Last Documented On 12/13/2021 8:30AM ; [facility], [facility] 51-year-old female has had a history of [...] step would be. - Last Documented On 12/13/2021 8:30AM ; [facility] Instructions Includes: Instructions from this encounter Instructions to patient Lose weight Last Documented On 11:01AM ; [facility] Equipment - Implanted Devices Includes: Current Devices No Medical Equipment Recorded Medications Includes: Medications discussed during this encounter and other current Medications Current Medications (continue as prescribed) Hyoscyamine Sulfate 0.125 MG Sublingual Tablet Subling ual 11/29/2021 Provider: Diagnosis: Last Documented On 2 1:44PM By Kadie Ovalle ; [facility], [facility] Ondansetron 4 MG Oral Tablet Disintegrating 11/29/2021 Provider: Diagnosis: Last Documented On 2 1:44PM By Kadie Ovalle ; [facility] Vitamin D3 250 MCG ([id number] UT) Oral Capsule 022 Provider: Diagnosis: Last Documented On 2 2:35PM By Kadie Ovalle ; [facility] B Complex-B12 Oral Tablet 11/24/2021 Provider: Diagnosis: Last Documented On 2 2:35PM By Kadie Ovalle ; [facility] Past Medications on file Contrave 8-90 MG Oral Tablet Extended Release 12 Hour 11/24/2021 - 12/24/2021 Provider: Diagnosis: Last Documented On 2 2:35PM By Kadie Ovalle ; [facility] Aspirin EC 81 MG Oral Tablet Delayed Release 08/09/2021 - 08/23/2021 Provider: Rafael Farris MD Diagnosis: once a day Last Documented On 1 7:09PM By Rafael Farris M.D. ; [facility] Zofran 4 MG Oral Tablet 08/09/2021 - 08/21/2021 Provid er: Rafael Farris MD Diagnosis: 1 tablet every 6-8 hrs for post op nausea Last Documented On 1 7:08PM By Rafael Farris M.D. ; [facility] oxyCODONE HCl 5 MG Oral Tablet 08/09/2021 - 08/12/2021 Provider: Rafael Farris MD Diagnosis: 1-2 tablets by mouth every 4-6 hrs for post op p ain Last Documented On 1 7:10PM By Rafael Farris M.D. ; [facility] oxyCODONE HCl 5 MG Oral Tablet 03/03/2021 - 03/06/2021 Provider: Rafael Farris MD Diagnosis: 1-2 po q 4-6h 1-2 tablets every 4-6hrs for post op pain Last Documented On 1 5:38PM By Rafael Farris M.D. ; [facility], [facility] Zofran 4 MG Oral Tablet 03/01/2021 - 03/13/2021 Provid er: Rafael Farris MD Diagnosis: 1 tablet every 6-8 hrs for post op nausea Last Documented On 1 9:21AM By Lianne Gamboa ; [facility], [facility] Phenergan 25 MG RE SUPP 06/01/2008 - 06/06/2008 Provid er: Bari Ambriz MD Diagnosis: cb [phone] Last Documented On 8 1:35PM By Marylu Rendon ; [facility], [facility] Percocet 5-325 MG OR TABS 05/26/2008 - 05/31/2008 Prov ider: Bari Ambriz MD Diagnosis: cb Last Documented On 8 9:13AM By Marylu Rendon ; [facility], [facility] Medications Administered Includes: Administered Medications from this encounter No Administered Medications Recorded Vital Signs Includes: Vital Signs from this encounter Vital Name 12/12/2021 11:04A Blood Pressure Sitting (mmHg) 114/87 Pulse Rate-Sitting (bpm) 87 Height (in) 65 Weight (lb) 175 Body Mass Index (kg/m2) 29.1 Body Surface Area (m2) 1.9 Note: aes Last Documented: On 12/12/2021 11:05A M ; [facility], [facility] Results Includes: Results discussed during this encounter [...] current smoker. 11/24/2021 Last Documented On 2 11:00AM ; [facility] Non-smoker 12/30/2020 Last Documented On 2 11:00AM ; [facility], [facility] Caffeine use 12/30/2020 Last Documented On 2 11:00AM ; [facility], [facility] No recent change in diet 12/30/2020 Last Documented On 2 11:00AM ; [facility] Not a current smoker. 12/30/2020 Last Documented On 2 11:00AM ; [facility], [facility] Not exercising regularly 12/30/2020 Last Documented On 2 11:00AM ; [facility] Not using alcohol 12/30/2020 Last Documented On 2 11:00AM ; [facility], [facility] Not using drugs 12/30/2020 Last Documented On 2 11:00AM ; [facility] Smoking Status Unknown Procedures and Surgical History Includes: Procedures from this encounter Procedures Code Diagnosis Performing Provider Service L ocation Service Date use of tobacco assessment performed 1000F Last Documented On 2 11:01AM ; [facility], [facility] no influenza immunization patient refuse d Last Documented On 2 11:01AM ; [facility], [facility] Medical History Includes: Medical History addressed during this encounter Description Last Updated Heartburn / Acid Reflux 12/30/2020 Last Documented On 2 11:00AM ; [facility], [facility] Hypertension 12/30/2020 Last Documented On 2 11:00AM ; [facility], [facility] Hysterectomy 12/30/2020 Last Documented On 2 11:00AM ; [facility] No recent immunization for flu 1 Last Documented On 2 11:00AM ; [facility], [facility] No recent immunization for pneumococcal pneumonia 12/30/2020 Last Documented On 2 11:00AM ; [facility], [facility] Past Surgical History: trigger thumb rel ease, elbow deprivement 12/30/2020 Last Documented On 2 11:00AM ; [facility], [facility] Family History Includes: Family History addressed during this encounter Description Last Updated Diabetes mellitus 12/30/2020 Last Documented On 2 11:00AM ; [facility] Family history of cancer 12/30/2020 Last Documented On 2 11:00AM ; [facility], [facility] Family history of heart disease 12/31/19 21 Last Documented On 2 11:00AM ; [facility] Family history of osteoporosis 1 Last Documented On 2 11:00AM ; [facility], [facility] Family history of rheumatoid arthritis 0 12/30/2020 Last Documented On 2 11:00AM ; [facility], [facility] Family history of thromboembolic disease 12/30/2020 Last Documented On 2 11:00AM ; [facility], [facility] Stroke / Seizures 12/30/2020 Last Documented On 2 11:00AM ; [facility], [facility] Review of Systems Includes: Review of Systems [...] Time Diagnosis Follow Up Rafael Farris MD [facility] 2 10:10AM 12:12PM Insurance Includes: Active Insurance Policies Plan Name Member ID Group # Subscriber Relationship Effect whitney Dates 1 - [facility] [id number] CODY, BRIAN K 09/23/2020 - Unknown Clinical Notes Includes: Clinical Notes from this encounter No Clinical Notes Recorded
--- OUTSIDE RECORDS SUMMARY | 2024-03-18 09:31 | XMS_ITS | Clinical Summary ---
Author Name Unknown Address [address] [place] [address] Phone Organization [facility] , [facility] Address [address] [place] [address] Phone Care Team Providers Care Database Tester Name Role Phone Brenton PEOPLES, Rafael Encarnacion Unavailable [phone] MELANI PRINCE Primary Care Provider [phone] Reason for Referral Date Encounter Description Provider Reason for Referral 01/23/22 Follow Up Rafael Farris MD Referral To Physician Reason for Visit and Chief Complaint The Chief Complaint is: Left Knee pain Problems Includes: Problems addressed during this encounter and other active Problems All Visits Onset Date Resolved Date Provider Condition S tatus Joint Pain in the Left Knee 12/30/2020 Christiano Castillo MD Active Last Documented On 1 8:35AM ; [facility], [facility] Plan of Treatment Pending Tests Order Diagnosis Results Due Ordering Shashank campbell Radiology - MRI MRI L Knee 07/14/21 Rafael Blair MD Last Documented On 1 1:16PM ; [facility], [facility] Instructions to patient Lose weight Last Documented On 2 12:10PM ; [facility], [facility] Assessments Includes: Assessments from this encounter [...] is getting worse. - Last Documented On 01/24/2022 8:17AM ; [facility], [facility] 12/05/2021 patient is back for an [...] medial joint space. - Last Documented On 01/24/2022 8:17AM ; [facility], [facility] 12/12/21- patients presenting for follow-up evaluation. Unfortunately [...] treatment options further. - Last Documented On 01/24/2022 8:17AM ; [facility], [facility] 01/23/22- return for follow-up. Unfortunately she continues with the same symptoms she has been having of pain over the medial side of the knee. Her symptoms continue to affect her quality of life and activities of daily living. Pain continues to be on the medial side of the joint. - Last Documented On 01/24/2022 8:17AM ; [facility], [facility] Physical exam: - Last Documented On 01/24/2022 8:17AM ; [facility], [facility] CONSTITUTIONAL: Well developed, well groomed, well nourished patient in no acute distress who appears stated age, height and weight. - Last Documented On 01/24/2022 8:17AM ; [facility], [facility] PSYCHIATRIC: The patient is alert and oriented to person, place, date and situation. Mood and affect are normal for current situation. - Last Documented On 01/24/2022 8:17AM ; [facility], [facility] NEUROLOGICAL: Sensation normal bilateral upper and lower extremities. - Last Documented On 01/24/2022 8:17AM ; [facility], [facility] LYMPHATIC: No pitting edema noted in the lower extremities. - Last Documented On 01/24/2022 8:17AM ; [facility], [facility] SKIN: No lesions noted on upper or lower extremities. Skin is dry, warm and with normal turgor. - Last Documented On 01/24/2022 8:17AM ; [facility] VASCULAR: No swelling in upper or lower extremities other than described below in extremity exam. Dorsalis Pedis Pulses normal in lower extremities. - Last Documented On 01/24/2022 8:17AM ; [facility], [facility] GAIT AND STATION: antalgic gait without assistive devices. Station normal. - Last Documented On 01/24/2022 8:17AM ; [facility], [facility] LEFT KNEE: No Deformity. No discoloration. No [...] Negative patella apprehension. - Last Documented On 01/24/2022 8:17AM ; [facility], [facility] Sensation intact in the saphenous, sural, deep peroneal, superficial peroneal, and tibial distribution. Able to fire EHL, FHL, gastroc, soleus, peroneals, and tibialis anterior. Warm and well-perfused distally with 2+ dorsalis pedis pulse. - Last Documented On 01/24/2022 8:17AM ; [facility], [facility] RIGHT KNEE: No Deformity. Normal Q angle. No discoloration. No Atrophy. No tenderness to palpation. No crepitation. No effusion. Active Range of Motion: Extension 0 degrees, Flexion 135 degrees. Passive Range of Motion: not limited. Strength: 5/5 quadriceps. 5/5 Hamstrings. Negative Zo's. Negative posterior drawer. Negative valgus instability. Negative varus instability.. Normal patella mobility. Negative patella apprehension. - Last Documented On 01/24/2022 8:17AM ; [facility], [facility] Assessment and plan: - Last Documented On 01/24/2022 8:17AM ; [facility], [facility] 51-year-old female has had a history of 2 knee surgeries 1 medial meniscus repair and then the second surgery was to take out the repair and do a medial meniscectomy. We did get a repeat MRI that shows still some medial meniscus pathologies that still giving her some symptom issues. given her persistent symptoms despite conservative measures you think she still is symptomatic from the medial meniscus likely related to a new tear in a new injury. I did review her postoperative imaging and intraoperative findings with her. My concern with repeat meniscectomy at this point is how much meniscal tissue will be remaining afterwards. She understands this but given her persistent symptoms I think we have no other option at this point as she is having significant pain limiting her function. We reviewed the risks and benefits of surgery including but not limited to bleeding, infection, injury to surrounding structures such as blood vessels tendons and nerves. We discussed the possibility of surgical procedure failure, persistent pain, loss of motion, persistent stiffness, persistent weakness, and the need for a revision surgery. In addition, we discussed the risk of heart attack, stroke, or . She understands these as well as alternative forms of treatment and does wish to proceed. Plan will be for a left knee arthroscopy with partial medial meniscectomy. - Last Documented On 01/24/2022 8:17AM ; [facility], [facility] 51-year-old female visiting for second postoperative visit [...] is getting worse. - Last Documented On 01/24/2022 8:17AM ; [facility], [facility] 12/05/2021 patient is back for an [...] medial joint space. - Last Documented On 01/24/2022 8:17AM ; [facility], [facility] Physical exam: - Last Documented On 01/24/2022 8:17AM ; [facility], [facility] Well-appearing in no acute distress. - Last Documented On 01/24/2022 8:17AM ; [facility], [facility] Evaluation of the left lower extremity: [...] and well-perfused distally. - Last Documented On 01/24/2022 8:17AM ; [facility], [facility] Assessment and plan: - Last Documented On 01/24/2022 8:17AM ; [facility], [facility] 51-year-old female has had a history [...] step would be. - Last Documented On 01/24/2022 8:17AM ; [facility] Instructions Includes: Instructions from this encounter Instructions to patient Lose weight Last Documented On 2 12:10PM ; [facility] Medical Equipment - Implanted Devices Includes: Current Devices No Medical Equipment Recorded Medications Includes: Medications discussed during this encounter and other current Medications Current Medications (continue as prescribed) Hyoscyamine Sulfate 0.125 MG Sublingual Tablet Subling ual 11/29/2021 Provider: Diagnosis: Last Documented On 2 1:44PM By Kadie Ovalle ; [facility] Ondansetron 4 MG Oral Tablet Disintegrating 11/29/2021 Provider: Diagnosis: Last Documented On 2 1:44PM By Kadie Ovalle ; [facility] Vitamin D3 250 MCG (81131 UT) Oral Capsule 022 Provider: Diagnosis: Last Documented On 2 2:35PM By Kadie Ovalle ; [facility] B Complex-B12 Oral Tablet 11/24/2021 Provider: Diagnosis: Last Documented On 2 2:35PM By Kadie Ovalle ; [facility] Past Medications on file Contrave 8-90 MG Oral Tablet Extended Release 12 Hour 11/24/2021 - 12/24/2021 Provider: Diagnosis: Last Documented On 2 2:35PM By Kadie Ovalle ; [facility] Aspirin EC 81 MG Oral Tablet Delayed Release 08/09/2021 - 08/23/2021 Provider: Rafael Farris MD Diagnosis: once a day Last Documented On 1 7:09PM By Rafael Farris M.D. ; [facility] Zofran 4 MG Oral Tablet 08/09/2021 - 08/21/2021 Provid er: Rafael Farris MD Diagnosis: 1 tablet every 6-8 hrs for post op nausea Last Documented On 1 7:08PM By Rafael Farris M.D. ; [facility] oxyCODONE HCl 5 MG Oral Tablet 08/09/2021 - 08/12/2021 Provider: Rafael Farris MD Diagnosis: 1-2 tablets by mouth every 4-6 hrs for post op p ain Last Documented On 1 7:10PM By Rafael Farris M.D. ; [facility], [facility] oxyCODONE HCl 5 MG Oral Tablet 03/03/2021 - 03/06/2021 Provider: Rafael Farris MD Diagnosis: 1-2 po q 4-6h 1-2 tablets every 4-6hrs for post op pain Last Documented On 1 5:38PM By Rafael Farris M.D. ; [facility], [facility] Zofran 4 MG Oral Tablet 03/01/2021 - 03/13/2021 Provid er: Rafael Farris MD Diagnosis: 1 tablet every 6-8 hrs for post op nausea Last Documented On 1 9:21AM By Lianne Gamboa ; [facility], [facility] Phenergan 25 MG RE SUPP 06/01/2008 - 06/06/2008 Provid er: Bari Ambriz MD Diagnosis: cb [phone] Last Documented On 8 1:35PM By Marylu Rendon ; [facility], [facility] Percocet 5-325 MG OR TABS 05/26/2008 - 05/31/2008 Prov ider: Bari Ambriz MD Diagnosis: cb Last Documented On 8 9:13AM By Marylu Rendon ; [facility], [facility] Medications Administered Includes: Administered Medications from this encounter No Administered Medications Recorded Vital Signs Includes: Vital Signs from this encounter Vital Name 01/23/2022 11:53A Blood Pressure Sitting (mmHg) 128/84 Pulse Rate-Sitting (bpm) 86 Height (in) 65 Weight (lb) 175.2 Body Mass Index (kg/m2) 29.2 Body Surface Area (m2) 1.9 Note: cbb Last Documented: On 01/23/2022 11:53A M ; [facility], [facility] Results Includes: Results discussed during this [...] in diet 01/23/2022 Last Documented On 2 8:17AM ; [facility], [facility] Not a current smoker. 11/24/2021 Last Documented On 2 11:53AM ; [facility], [facility] Non-smoker 12/30/2020 Last Documented On 2 11:53AM ; [facility] Caffeine use 12/30/2020 Last Documented On 2 11:53AM ; [facility] No recent change in diet 12/30/2020 Last Documented On 2 11:53AM ; [facility], [facility] Not a current smoker. 12/30/2020 Last Documented On 2 11:53AM ; [facility], [facility] Not exercising regularly 12/30/2020 Last Documented On 2 11:53AM ; [facility], [facility] Not using alcohol 12/30/2020 Last Documented On 2 11:53AM ; [facility], [facility] Not using drugs 12/30/2020 Last Documented On 2 11:53AM ; [facility] Smoking Status Unknown Procedures and Surgical History Includes: Procedures from this encounter Procedures Code Diagnosis Performing Provider Service L ocation Service Date use of tobacco assessment performed 1000F Last Documented On 2 12:10PM ; [facility] referral to physician Last Documented On 2 12:10PM ; [facility], [facility] Medical History Includes: Medical History addressed during this encounter Description Last Updated Heartburn / Acid Reflux 12/30/2020 Last Documented On 2 11:53AM ; [facility], [facility] Hypertension 12/30/2020 Last Documented On 2 11:53AM ; [facility], [facility] Hysterectomy 12/30/2020 Last Documented On 2 11:53AM ; [facility], [facility] No recent immunization for flu 1 Last Documented On 2 11:53AM ; [facility], [facility] No recent immunization for pneumococcal pneumonia 12/30/2020 Last Documented On 2 11:53AM ; [facility], [facility] Past Surgical History: trigger thumb rel ease, elbow deprivement 12/30/2020 Last Documented On 2 11:53AM ; [facility], [facility] Family History Includes: Family History addressed during this encounter Description Last Updated Family history of systemic hypertension 01/23/2022 Last Documented On 2 8:17AM ; [facility], [facility] Diabetes mellitus 12/30/2020 Last Documented On 2 11:53AM ; [facility], [facility] Family history of cancer 12/30/2020 Last Documented On 2 11:53AM ; [facility], [facility] Family history of heart disease 12/31/19 21 Last Documented On 2 11:53AM ; [facility], [facility] Family history of osteoporosis 1 Last Documented On 2 11:53AM ; [facility], [facility] Family history of rheumatoid arthritis 0 12/30/2020 Last Documented On 2 11:53AM ; [facility] Family history of thromboembolic disease 12/30/2020 Last Documented On 2 11:53AM ; [facility], [facility] Stroke / Seizures 12/30/2020 Last Documented On 2 11:53AM ; [facility], [facility] Review of Systems Includes: Review of Systems [...] Time Diagnosis Follow Up Rafael Farris MD [facility] 2 11:45AM 12:10PM Insurance Includes: Active Insurance Policies Plan Name Member ID Group # Subscriber Relationship Effect whitney Dates 1 - [facility] [id number] MELANI PLEITEZ 09/23/2020 - Unknown Clinical Notes Includes: Clinical Notes from this encounter No Clinical Notes Recorded
--- OUTSIDE RECORDS SUMMARY | 2024-03-18 09:31 | XMS_ITS | Clinical Summary ---
Author Name Unknown Address [address] [place] [address] Phone Organization [facility] , [facility] Address [address] [place] [address] Phone Care Team Providers Care Geophysics Teacher Name Role Phone Brenton PEOPLES, Rafael Encarnacion Unavailable [phone] MELANI PRINCE Primary Care Provider [phone] Reason for Visit and Chief Complaint MRI Problems Includes: Problems addressed during this encounter and other active Problems All Visits Onset Date Resolved Date Provider Condition S tatus Joint Pain in the Left Knee 12/30/2020 Christiano Castillo MD Active Last Documented On 1 8:35AM ; [facility], [facility] Plan of Treatment No Plan of Treatment Recorded Assessments Includes: Assessments from this encounter No Assessments Recorded Medical Equipment - Implanted Devices Includes: Current Devices No Medical Equipment Recorded Medications Includes: Medications discussed during this encounter and other current Medications Current Medications (continue as prescribed) Hyoscyamine Sulfate 0.125 MG Sublingual Tablet Subling ual 11/29/2021 Provider: Diagnosis: Last Documented On 2 1:44PM By Kadie [facility], [facility] Ondansetron 4 MG Oral Tablet Disintegrating 11/29/2021 Provider: Diagnosis: Last Documented On 2 1:44PM By Kadie Ovalle ; [facility] Vitamin D3 250 MCG (87029 UT) Oral Capsule 022 Provider: Diagnosis: Last Documented On 2 2:35PM By Kadie [facility], [facility] B Complex-B12 Oral Tablet 11/24/2021 Provider: Diagnosis: Last Documented On 2:35PM [facility] Medications Administered Includes: Administered Medications from this encounter No Administered Medications Recorded Results Includes: Results discussed during this encounter No Results Recorded For Specified Dates History of Present Illness Includes: History of Present Illness from this encounter No History of Present Illness Recorded Social History No Social History Recorded - Smoking Status Unknown Medical History Includes: Medical History addressed during this encounter No Medical History Recorded Family History Includes: Family History addressed during this encounter No Family History Recorded Review of Systems Includes: Review of Systems from this encounter No Review of Systems Recorded Mental Status Includes: Mental Status from this encounter No Mental Status Recorded Functional Status Includes: Functional Status from this encounter No Functional Status Recorded Physical Exam Includes: Physical Exam from this encounter No Physical Exam Recorded Allergies Includes: Active Allergies No Known Allergies Encounters Encounter Provider Location Date Check-In Time Check-Out Time Diagnosis MRI [facility] 12/05/2021 9:04AM 9:44AM Insurance Includes: Active Insurance Policies Plan Name Member ID Group # Subscriber Relationship Effect whitney Dates 1 - [facility] [id number] MELANI PLEITEZ K 09/23/2020 - Unknown Clinical Notes Includes: Clinical Notes from this encounter No Clinical Notes Recorded
--- OUTSIDE RECORDS SUMMARY | 2024-03-18 09:31 | XMS_ITS ---
Author Name Unknown Address [address] [place] [address] Phone Organization [facility] Address [address] [place] [address] Phone Care Team Providers Care Childhood Teacher Name Role Phone Brenton PEOPLES, Rafael Encarnacion Unavailable [phone] MELANI PRINCE Primary Care Provider [phone] Reason for Referral Date Encounter Description Provider Reason for Referral 03/09/22 Follow Up Rafael Farris MD Referral To Physician; Referral To Physician 01/23/22 Follow Up Rafael Farris MD Referral To Physician 08/25/21 Post Op Rafael Farris MD Referral To Physician - for elevated bp 07/25/21 Follow Up Rafael Farris MD Referral To Physician - for elevated bp 06/30/21 Follow Up Rafael Farris MD Referral To Physician - for elevated bp 06/09/21 Follow Up Rafael Farris MD Referral To Physician - for elevated bp 05/02/21 Follow Up Rafael Farris MD Referral To Physician - for elevated bp 03/21/21 Post Op Rafael Farris MD Referral To Physician - for elevated bp 02/28/21 IN HOUSE REFERRAL Rafael Farris MD Ref erral To Physician - for elevated bp 01/16/21 Follow Up Christiano armstrong MD Referral To Physician - for elevated bp Problems Includes: Active, inactive, and resolved Problems All Visits Onset Date Resolved Date Provider Condition S tatus Joint Pain in the Left Knee 12/30/2020 Christiano Castillo MD Active Last Documented On 1 8:35AM ; [facility] Plan of Treatment Pending Tests Order Diagnosis Results Due Ordering P rovider Radiology - MRI MRI L Knee 01/13/21 Christiano Castillo MD Last Documented On 1 10:26AM ; [facility] Radiology - MRI MRI L Knee 07/14/21 Rafael Blair MD Last Documented On 1 1:16PM ; [facility] Radiology - MRI MRI L Knee 12/08/21 Darnell Salinas PA-C Last Documented On 2 4:08PM ; [facility] Instructions to patient Lose weight Last Documented On 2 9:38AM ; [facility] Lose weight Last Documented On 2 12:10PM ; [facility] Lose weight Last Documented On 2 11:01AM ; [facility] Lose weight Last Documented On 2 1:45PM ; [facility] Lose weight Last Documented On 2 2:19PM ; [facility] Lose weight Last Documented On 1 10:03AM ; [facility] Lose weight Last Documented On 1 7:54AM ; [facility] Lose weight Last Documented On 1 9:33AM ; [facility] Lose weight Last Documented On 1 2:07PM ; [facility] Lose weight Last Documented On 1 3:23PM ; [facility] Lose weight Last Documented On 1 2:41PM ; [facility] Lose weight Last Documented On 1 11:19AM ; [facility] Lose weight Last Documented On 1 11:08AM ; [facility] Lose weight Last Documented On 1 9:17AM ; [facility] Assessments Includes: Assessments for all patient encounters No Assessments Recorded Instructions Includes: Instructions for all patient encounters Instructions to patient Lose weight Last Documented On 2 9:38AM ; [facility] Lose weight Last Documented On 2 12:10PM ; [facility] Lose weight Last Documented On 2 11:01AM ; [facility] Lose weight Last Documented On 2 1:45PM ; [facility] Lose weight Last Documented On 2 2:19PM ; [facility] Lose weight Last Documented On 1 10:03AM ; [facility] Lose weight Last Documented On 1 7:54AM ; [facility] Lose weight Last Documented On 1 9:33AM ; [facility] Lose weight Last Documented On 1 2:07PM ; [facility] Lose weight Last Documented On 1 3:23PM ; [facility] Lose weight Last Documented On 1 2:41PM ; [facility] Lose weight Last Documented On 1 11:19AM ; [facility] Lose weight Last Documented On 1 11:08AM ; [facility] Lose weight Last Documented On 1 9:17AM ; [facility] Medical Equipment - Implanted Devices Includes: Current and historical Devices No Medical Equipment Recorded Medications Includes: Current and historical Medications Current Medications (continue as prescribed) Hyoscyamine Sulfate 0.125 MG Sublingual Tablet Subling ual 11/29/2021 Provider: Diagnosis: Last Documented On 2 1:44PM By Kadie Ovalle ; [facility] Ondansetron 4 MG Oral Tablet Disintegrating 11/29/2021 Provider: Diagnosis: Last Documented On 2 1:44PM By Kadie Ovalle ; [facility] Vitamin D3 250 MCG (74787 UT) Oral Capsule 022 Provider: Diagnosis: Last Documented On 2 2:35PM By Kadie Ovalle ; [facility] B Complex-B12 Oral Tablet 11/24/2021 Provider: Diagnosis: Last Documented On 2 2:35PM By Kadie Ovalle ; [facility] Past Medications on file Contrave 8-90 MG Oral Tablet Extended Release 12 Hour 11/24/2021 - 12/24/2021 Provider: Diagnosis: Last Documented On 2 2:35PM By Kadie Ovalle ; [facility] Aspirin EC 81 MG Oral Tablet Delayed Release 08/09/2021 - 08/23/2021 Provider: Rafael Farris MD Diagnosis: once a day Last Documented On 1 7:09PM By Rafael Farris M.D. ; [facility] Zofran 4 MG Oral Tablet 08/09/2021 - 08/21/2021 Provid er: Rafael Farris MD Diagnosis: 1 tablet every 6-8 hrs for post op nausea Last Documented On 1 7:08PM By Rafael Farris M.D. ; [facility] oxyCODONE HCl 5 MG Oral Tablet 08/09/2021 - 08/12/2021 Provider: Rafael Farris MD Diagnosis: 1-2 tablets by mouth every 4-6 hrs for post op p ain Last Documented On 1 7:10PM By Rafael Farris M.D. ; [facility] Contrave 8-90 MG Oral Tablet Extended Release 12 Hour 04/05/2021 - 11/24/2021 Provider: Diagnosis: Last Documented On 2 2:35PM By Kadie Ovalle ; [facility] Vitamin D (Ergocalciferol) 1 .25 MG (55012 UT) Oral Capsule 04/02/2021 - 11/24/2021 Provider: Eryn Thakur MD Diagnosis: Last Documented On 2 2:35PM By Kadie Ovalle ; [facility] oxyCODONE HCl 5 MG Oral Tablet 03/03/2021 - 03/06/2021 Provider: Rafael Farris MD Diagnosis: 1-2 po q 4-6h 1-2 tablets every 4-6hrs for post op pain Last Documented On 1 5:38PM By Rafael Farris M.D. ; [facility] Zofran 4 MG Oral Tablet 03/01/2021 - 03/13/2021 Provid er: Rafael Farris MD Diagnosis: 1 tablet every 6-8 hrs for post op nausea Last Documented On 1 9:21AM By Lianne Gamboa ; [facility] Vitamin D3 250 MCG (76802 UT) Oral Capsule 0 12/30/2020 - 11/24/2021 Provider: Diagnosis: Last Documented On 2 2:35PM By Kadie Ovalle ; [facility] B Complex-B12 Oral Tablet 12/30/2020 - 11/24/2021 Prov ider: Diagnosis: Last Documented On 2 2:35PM By Kadie Ovalle ; [facility] Pantoprazole Sodium 40 MG Or al Tablet Delayed Release 12/23/2020 - 11/24/2021 Provider: Diagnosis: Last Documented On 2 2:34PM By Kadie Ovalle ; [facility] Metoprolol Succinate ER 25 M G Oral Tablet Extended Release 24 Hour 12/15/2020 - 11/24/2021 Provider: Diagnosis: Last Documented On 2 2:34PM By Kadie Ovalle ; [facility] Phenergan 25 MG RE SUPP 06/01/2008 - 06/06/2008 Provid er: Bari Ambriz MD Diagnosis: cb [phone] Last Documented On 8 1:35PM By Marylu Rendon ; [facility] Percocet 5-325 MG OR TABS 05/26/2008 - 05/31/2008 Prov ider: Bari Ambriz MD Diagnosis: cb Last Documented On 8 9:13AM By Marylu Rendon ; [facility] Medications Administered Includes: Administered Medications in patient's chart No Administered Medications Recorded Results Includes: Results from 03/18/2023 through 03/18/2024 No Results Recorded For Specified Dates History of Present Illness History of Present Illness not supported for this document type No History of Present Illness Recorded Social History Description Last Updated No recent change in diet 01/23/2022 Last Documented On 2 8:17AM ; [facility] Not a current smoker. 11/24/2021 Last Documented On 2 1:12PM ; [facility] Non-smoker 12/30/2020 Last Documented On 1 1:01PM ; [facility] Caffeine use 12/30/2020 Last Documented On 1 1:01PM ; [facility] No recent change in diet 12/30/2020 Last Documented On 1 1:01PM ; [facility] Not a current smoker. 12/30/2020 Last Documented On 1 1:01PM ; [facility] Not exercising regularly 12/30/2020 Last Documented On 1 1:01PM ; [facility] Not using alcohol 12/30/2020 Last Documented On 1 1:01PM ; [facility] Not using drugs 12/30/2020 Last Documented On 1 1:01PM ; [facility] Smoking Status Unknown Medical History Includes: Medical History in patient's chart Description Last Updated Heartburn / Acid Reflux 12/30/2020 Last Documented On 1 1:01PM ; [facility] Hypertension 12/30/2020 Last Documented On 1 1:01PM ; [facility] Hysterectomy 12/30/2020 Last Documented On 1 1:01PM ; [facility] No recent immunization for flu 1 Last Documented On 1 1:01PM ; [facility] No recent immunization for pneumococcal pneumonia 12/30/2020 Last Documented On 1 1:01PM ; [facility] Past Surgical History: trigger thumb rel ease, elbow deprivement 12/30/2020 Last Documented On 1 1:01PM ; [facility] Family History Includes: Family History in patient's chart Description Last Updated Family history of systemic hypertension 01/23/2022 Last Documented On 2 8:17AM ; [facility] Diabetes mellitus 12/30/2020 Last Documented On 1 1:01PM ; [facility] Family history of cancer 12/30/2020 Last Documented On 1 1:01PM ; [facility] Family history of heart disease 12/31/19 21 Last Documented On 1 1:01PM ; [facility] Family history of osteoporosis 1 Last Documented On 1 1:01PM ; [facility] Family history of rheumatoid arthritis 0 12/30/2020 Last Documented On 1 1:01PM ; [facility] Family history of thromboembolic disease 12/30/2020 Last Documented On 1 1:01PM ; [facility] Stroke / Seizures 12/30/2020 Last Documented On 1 1:01PM ; [facility] Review of Systems Review of Systems not supported for this document type No Review of Systems Recorded Mental Status Description No anxiety Functional Status No Functional Status Recorded Physical Exam Physical Exam not supported for this document type No Physical Exam Recorded Immunizations Includes: Immunizations in patient's chart Vaccine Dose # Date Site Reaction(s) Status Source Influenza 1 11/24/2021 Complete (Refused - Patient objection) [facility] Last Documented On 2 2:36PM ; [facility] PCV (Pneumovax 23) 1 11/24/2021 Complete (Refused - Patient objection) [facility] Last Documented On 2 2:36PM ; [facility] Allergies Includes: Active, inactive, and resolved Allergies No Known Allergies Insurance Includes: Active Insurance Policies Plan Name Member ID Group # Subscriber Relationship Effect whiteny Dates 1 - [facility] [id number] MELANI ROSS K 09/23/2020 - Unknown Clinical Notes Includes: Signed Clinical Notes starting from 09/06/2022 No Clinical Notes Recorded
--- OUTSIDE RECORDS SUMMARY | 2024-03-18 09:31 | XMS_ITS ---
Care Plan - [facility] Created on: March 18, 2024 Daisy Pleitez : 1970 Sex: Female Author Name Unknown Address [address] [place] [address] Phone Organization [facility] Address [address] [place] [address] Phone Care Team Providers Care Hat Lining Paster Name Role Phone Brenton PEOPLES, Rafael P Unavailable [phone] MELANI PRINCE Primary Care Provider [phone]
== END 2024-03-18 23:59 | disposition home or self-care (01) ==
LOC: RAD 09:28
PROVIDERS: PCP Physician Assistant; Visit Provider Orthopaedic Surgery
DX: M25.552 Pain in left hip (principal)
CPT/HCPCS: 73502

== ENCOUNTER 2024-04-10 10:37 | Outpatient (CLI) | payer BC, SELFPAY ==
--- NOTE | 2024-04-10 10:43 | XR_ITS ---
FINAL REPORT CLINICAL HISTORY: . FINDINGS: THREE VIEW RIGHT HAND FINDINGS: Three views show no evidence of an acute, displaced fracture or dislocation of the visualized bony architecture. The joint spaces appear normal. IMPRESSION: Unremarkable exam. Authenticated and [facility]
--- NOTE | 2024-04-10 10:43 | XR_ITS ---
FINAL REPORT CLINICAL HISTORY: . FINDINGS: THREE VIEW LEFT HAND FINDINGS: Three views show no evidence of an acute, displaced fracture or dislocation of the visualized bony architecture. The joint spaces appear normal. IMPRESSION: Unremarkable exam. Authenticated and [facility]
--- NOTE | 2024-04-10 10:45 | XR_ITS ---
FINAL REPORT CLINICAL HISTORY: UNSPECIFIED OSTEOARTHRITIS,LOWER BACK PAIN FINDINGS: SACROILIAC JOINTS, 3 VIEWS FINDINGS: 3 views show no evidence of an acute, displaced fracture or dislocation of the visualized bony architecture. There is mild bilateral SI joint arthropathy, left greater than right. There is no bone destruction IMPRESSION: Mild degenerative change without acute fracture. Authenticated and [facility]
[2024-04-10 11:32] LABS: Basophils # 0.1 K/mm3 (0-0.2); Basophils % 1.1 % (0.1-2.0); Eosinophils # 0.1 K/mm3 (0.0-0.4); Eosinophils % 1.9 % (0.1-12.0); Hematocrit 37.9 % (37.0-47.0); Hemoglobin 14.6 g/dL (12.2-16.2); Lymphocytes # 1.8 K/mm3 (0.7-4.5); Lymphocytes % 25.4 % (10-50); Mean Corpuscular HGB Conc 38.4 g/dL (31.8-35.4); Mean Corpuscular Hemoglobin 35.3 pg (27.0-31.2); Mean Platelet Volume 9.4 fl (7.4-10.4); Monocytes # 0.4 K/mm3 (0.1-1.0); Monocytes % 5.2 % (1.7-9.3); Neutrophils # 4.7 K/mm3 (1.8-7.8); Neutrophils % 66.4 % (37.0-80.0); Platelet Count 198 K/mm3 (142-424); Red Blood Count 4.12 M/mm3 (4.20-5.40); Red Cell Distribution Width 14.8 % (11.5-17.5); White Blood Count 7.1 K/mm3 (4.8-10.8)
[2024-04-10 12:43] LABS: Chloride 106 mmol/L (98-107); Potassium 4.2 mmoL/L (3.5-5.1); Sodium 139 mmol/L (136-145)
[2024-04-10 12:45] LABS: Alanine Aminotransferase 26 U/L (12-78); Aspartate Amino Transferase 24 U/L (14-36); Blood Urea Nitrogen 12 mg/dl (7-17); Estimated Glomerular Filt Rate 88 ml/min (>60); GFR (African American) 106 ML/MIN (>60)
[2024-04-10 12:46] LABS: Albumin Level 4.7 g/dl (3.5-5.0); Albumin/Globulin Ratio 1.7 (1.1-1.8); Alkaline Phosphatase 115 U/L (38-126); Anion Gap 10.2 mEq/L (5-15); Bilirubin,Total 1.1 mg/dl (0.2-1.3); Calcium 9.8 mg/dl (8.4-10.2); Carbon Dioxide 27 mmol/L (22.0-30.0); Globulin 2.7 g/dL (1.3-3.2); Glucose 85 mg/dl (74-100); Total Protein,Serum 7.4 g/dl (6.3-8.2)
[2024-04-10 12:51] LABS: C-Reactive Protein 11.2 mg/L (0-4)
[2024-04-10 12:57] LABS: Erythrocyte Sedimentation Rate 21 mm/hr (0-30)
[2024-04-11 10:23] LABS: RA Latex Turbid. 48.6 IU/mL (<14.0)
[2024-04-12 12:47] LABS: C-Peptide 2.7 ng/mL (1.1-4.4)
[2024-04-13 15:10] LABS: Sjogren's Anti-SS-A <0.2 AI (0.0-0.9); Sjogren's Anti-SS-B <0.2 AI (0.0-0.9)
[2024-04-13 18:01] LABS: Angiotensin Converting Enzyme 27 U/L (14-82)
[2024-04-21 14:56] LABS: HLA-B27 Negative (.)
[2024-05-11 15:17] LABS: Hepatitis Be Antibody Non Reactive; Hepatitis C Antibody NON REACTIVE
== END 2024-04-10 23:59 | disposition home or self-care (01) ==
LOC: LAB 10:39
PROVIDERS: PCP Physician Assistant; Visit Provider Internal Medicine Rheumatology
DX: M19.90 Unspecified osteoarthritis, unspecified site (principal); M54.50 Low back pain, unspecified; R76.0 Raised antibody titer; Z51.81 Encounter for therapeutic drug level monitoring
CPT/HCPCS: 36415; 72202; 73130; 80053; 82164; 84681; 85025; 85651; 86140; 86235; 86431; 86707; 86812; 87380

== ENCOUNTER 2024-04-20 08:32 | Outpatient (CLI) | payer BC, SELFPAY ==
--- NOTE | 2024-04-20 08:35 | XR_ITS ---
FINAL REPORT CLINICAL HISTORY: Right Knee Pain FINDINGS: AP, lateral and oblique views of the right knee were obtained. There is no prior exam for comparison. There is no acute osseous abnormality of the right knee. The joint space is preserved. The soft tissues are normal. There is no joint effusion. IMPRESSION: No acute osseous abnormality of the right knee. Reviewed, Interpreted and Dictated by Tessa Long MD Transcribed by Chely Villa Authenticated and [facility]
== END 2024-04-20 23:59 | disposition home or self-care (01) ==
LOC: RAD 08:33
PROVIDERS: PCP Physician Assistant; Visit Provider Physician Assistant
DX: M25.561 Pain in right knee (principal)
CPT/HCPCS: 73562

== ENCOUNTER 2024-09-25 10:09 | Outpatient (CLI) | payer BC, SELFPAY ==
--- NOTE | 2024-09-25 10:14 | XR_ITS ---
FINAL REPORT CLINICAL HISTORY: pain COMPARISON: None FINDINGS: AP, lateral, and odontoid views of the cervical spine were obtained. The odontoid view is limited as the tip of the odontoid process is obscured by overlying soft tissue. The lateral masses of C1 and C2 are aligned. On the lateral view, there is no fracture or malalignment. Precervical soft tissues are within normal limits. There is degenerative disc disease present at the C4-5 and C5-6 levels. IMPRESSION: Degenerative disc disease at the C4-5 and C5-6 levels, without acute osseous abnormality. Reviewed, Interpreted and Dictated by Tessa Long MD Transcribed by Fátima Posada Authenticated and [facility]
--- NOTE | 2024-09-25 10:14 | XR_ITS ---
FINAL REPORT CLINICAL HISTORY: CERVICALGIA COMPARISON: None FINDINGS: AP and lateral views of the thoracic spine were obtained. There is no prior exam for comparison. There is no acute fracture or acute malalignment. Vertebral body height is preserved. Mild degenerative changes noted. No acute paraspinal abnormality. IMPRESSION: Mild degenerative change, with no acute osseous abnormality of the thoracic spine. Reviewed, Interpreted and Dictated by Tessa Long MD Transcribed by Fátima Posada Authenticated and [facility]
[2024-09-25 10:58] LABS: Basophils % 0.7 % (0.1-2.0); Eosinophils # 0.1 K/mm3 (0.0-0.4); Eosinophils % 2.4 % (0.1-12.0); Hematocrit 42.5 % (37.0-47.0); Hemoglobin 13.9 g/dL (12.2-16.2); Lymphocytes # 1.9 K/mm3 (0.7-4.5); Lymphocytes % 31.4 % (10-50); Mean Corpuscular HGB Conc 32.7 g/dL (31.8-35.4); Mean Corpuscular Hemoglobin 28.9 pg (27.0-31.2); Mean Corpuscular Volume 88.4 fl (81-99); Mean Platelet Volume 11.8 fl (7.4-10.4); Monocytes # 0.4 K/mm3 (0.1-1.0); Monocytes % 6.6 % (1.7-9.3); Neutrophils # 3.5 K/mm3 (1.8-7.8); Neutrophils % 58.7 % (37.0-80.0); Platelet Count 213 K/mm3 (142-424); Red Blood Count 4.81 M/mm3 (4.20-5.40); Red Cell Distribution Width 13.4 % (11.5-17.5)
[2024-09-25 11:27] LABS: Alanine Aminotransferase 25 U/L (12-78); Albumin Level 4.6 g/dl (3.5-5.0); Albumin/Globulin Ratio 2.2 (1.1-1.8); Alkaline Phosphatase 96 U/L (38-126); Anion Gap 11.4 mEq/L (5-15); Aspartate Amino Transferase 26 U/L (14-36); Bilirubin,Total 0.7 mg/dl (0.2-1.3); Blood Urea Nitrogen 15 mg/dl (7-17); Calcium 9.2 mg/dl (8.4-10.2); Carbon Dioxide 28 mmol/L (22.0-30.0); Chloride 105 mmol/L (98-107); Estimated Glomerular Filt Rate 88 ml/min (>60); GFR (African American) 106 ML/MIN (>60); Globulin 2.1 g/dL (1.3-3.2); Glucose 91 mg/dl (74-100); Potassium 4.4 mmoL/L (3.5-5.1); Sodium 140 mmol/L (136-145); Total Protein,Serum 6.7 g/dl (6.3-8.2)
[2024-09-25 11:45] LABS: Erythrocyte Sedimentation Rate 15 mm/hr (0-30)
[2024-09-26 06:10] LABS: Hepatitis B Surface Antigen Negative (Negative); Hepatitis C Antibody Non Reactive (Non Reactive)
[2024-09-29 19:08] LABS: QuantiFERON-TB Gold Plus Negative (Negative)
== END 2024-09-25 23:59 | disposition home or self-care (01) ==
LOC: LAB 10:10
PROVIDERS: PCP Physician Assistant; Visit Provider Internal Medicine Rheumatology
DX: M05.79 Rheumatoid arthritis with rheumatoid factor of multiple sites without organ or systems involvement (principal); M54.2 Cervicalgia; M54.6 Pain in thoracic spine; Z51.81 Encounter for therapeutic drug level monitoring
CPT/HCPCS: 36415; 72040; 72070; 80053; 85025; 85651; 86140; 86480; 87340; 87380

== ENCOUNTER 2024-11-16 08:58 | Outpatient (CLI) | payer BC, SELFPAY ==
--- NOTE | 2024-11-16 09:01 | MR_ITS ---
FINAL REPORT TECHNIQUE: Multiplanar MR without contrast CLINICAL HISTORY: cervical and lumbar pain, pt has RA FINDINGS: Limited images of the posterior fossa are unremarkable. Alignment is normal. Cervical spinal cord shows normal signal and contour. C2-3: Unremarkable C3-4: Minimal annular disc bulge. C4-5: Mild annular disc bulge with facet arthropathy. Mild canal stenosis and mild neuroforaminal narrowing. C5-6: Mild annular disc bulge asymmetric to the left. No significant canal stenosis or neuroforaminal narrowing. C6-7: Minimal annular disc bulge without significant canal stenosis or neuroforaminal narrowing. C7-T1: Unremarkable IMPRESSION: Mild degenerative changes with neuroforaminal narrowing canal stenosis at L4-5. Reviewed, Interpreted and Dictated by Mary Samaniego MD Transcribed by Chely Villa Authenticated and [facility]
--- NOTE | 2024-11-16 09:01 | MR_ITS ---
FINAL REPORT TECHNIQUE: Multiplanar MR without contrast CLINICAL HISTORY: NECK PAIN/CERVICAL pt has RA FINDINGS: Sagittal images show normal vertebral height. Alignment is normal. Marrow signal pattern is unremarkable. L1-2: Unremarkable L2-3: Unremarkable L3-4: Unremarkable L4-5: Unremarkable L5-S1: Unremarkable IMPRESSION: Unremarkable exam Reviewed, Interpreted and Dictated by Mary Samaniego MD Transcribed by Chely Villa Authenticated and [facility]
== END 2024-11-16 23:59 | disposition home or self-care (01) ==
LOC: RAD 08:58
PROVIDERS: PCP Physician Assistant; Visit Provider Physician Assistant
DX: M54.2 Cervicalgia (principal); M54.9 Dorsalgia, unspecified
CPT/HCPCS: 72141; 72148

== ENCOUNTER 2024-12-25 16:03 | Outpatient (CLI) | payer BC, SELFPAY ==
[2024-12-25 16:19] LABS: Basophils % 0.4 % (0.1-2.0); Eosinophils # 0.1 K/mm3 (0.0-0.4); Eosinophils % 1.4 % (0.1-12.0); Hematocrit 41.4 % (37.0-47.0); Hemoglobin 13.9 g/dL (12.2-16.2); Lymphocytes # 2.1 K/mm3 (0.7-4.5); Mean Corpuscular HGB Conc 33.6 g/dL (31.8-35.4); Mean Corpuscular Hemoglobin 29.3 pg (27.0-31.2); Mean Corpuscular Volume 87.2 fl (81-99); Mean Platelet Volume 11.8 fl (7.4-10.4); Monocytes # 0.5 K/mm3 (0.1-1.0); Neutrophils # 5.3 K/mm3 (1.8-7.8); Platelet Count 219 K/mm3 (142-424); Red Blood Count 4.75 M/mm3 (4.20-5.40); Red Cell Distribution Width 13.1 % (11.5-17.5)
[2024-12-25 16:49] LABS: Albumin Level 4.6 g/dl (3.5-5.0); Chloride 106 mmol/L (98-107)
[2024-12-25 16:50] LABS: Sodium 140 mmol/L (136-145)
[2024-12-25 16:52] LABS: Alanine Aminotransferase 25 U/L (12-78); Aspartate Amino Transferase 25 U/L (14-36); Blood Urea Nitrogen 14 mg/dl (7-17); Carbon Dioxide 28 mmol/L (22.0-30.0); Estimated Glomerular Filt Rate 75 ml/min (>60); GFR (African American) 91 ML/MIN (>60)
[2024-12-25 16:53] LABS: Alkaline Phosphatase 104 U/L (38-126); Bilirubin,Total 0.9 mg/dl (0.2-1.3); Calcium 9.6 mg/dl (8.4-10.2); Globulin 2.3 g/dL (1.3-3.2); Glucose 107 mg/dl (74-100); Total Protein,Serum 6.9 g/dl (6.3-8.2)
[2024-12-25 17:05] LABS: C-Reactive Protein 6.4 mg/L (0-4)
[2024-12-25 17:44] LABS: Erythrocyte Sedimentation Rate 26 mm/hr (0-30)
--- OUTSIDE RECORDS SUMMARY | 2024-12-31 19:43 | XMS_ITS | Clinical Summary ---
Author Organization [facility] Address [address] [place] [address] Phone Care Team Providers Care Director Workers Compensation Name Role Phone Brenton PEOPLES, Rafael Encarnacion Unavailable [phone] MELANI PRINCE Primary Care Provider [phone] Reason for Referral Date Encounter Description Provider Reason for Referral 03/09/22 Follow Up Rafael Farris MD Referral To Physician; Referral To Physician Reason for Visit and Chief Complaint The Chief Complaint is: Left Knee pain Problems Includes: Problems addressed during this encounter and other active Problems Current Visit Onset Date Resolved Date Provider Conditio n Status Lower Back Pain 10/29/2024 Qasim gonzalez PA-C Active Last Documented On 5 11:09AM ; [facility], [facility] Past Visits Onset Date Resolved Date Provider Condition Status Neck Pain 10/29/2024 Qasim Henderson Active Last Documented On 5 11:09AM ; [facility], [facility] Joint Pain in the Left Knee 12/30/2020 Tomer Castillo MD Active Last Documented On 1 8:35AM ; [facility], [facility] Plan of Treatment Pending Tests Order Diagnosis Results Due Ordering P rovider Radiology - MRI MRI L Knee 07/14/21 Rafael Blair MD Last Documented On 1 1:16PM ; [facility], [facility] Instructions to patient Lose weight Last Documented On 2 9:38AM ; [facility], [facility] Assessments Includes: Assessments from this encounter [...] - Last Documented On 03/09/2022 10:15AM ; [facility], [facility] 12/05/2021 patient is back for an [...] - Last Documented On 03/09/2022 10:15AM ; [facility], [facility] 12/12/21- patients presenting for follow-up evaluation. [...] - Last Documented On 03/09/2022 10:15AM ; [facility], [facility] 01/23/22- return for follow-up. Unfortunately she continues with the same symptoms she has been having of pain over the medial side of the knee. Her symptoms continue to affect her quality of life and activities of daily living. Pain continues to be on the medial side of the joint. - Last Documented On 03/09/2022 10:15AM ; [facility], [facility] 03/09/22- follow up visit now 7 months status post left knee arthroscopy with partial medial meniscectomy,she is scheduled for surgey on the left knee but comes today for discussion about the upcoming surgery. She is just needing reassurance that this is the correct treatment plan for her. - Last Documented On 03/09/2022 10:15AM ; [facility], [facility] Physical exam: - Last Documented On 03/09/2022 10:15AM ; [facility] CONSTITUTIONAL: Well developed, well groomed, well nourished patient in no acute distress who appears stated age, height and weight. - Last Documented On 03/09/2022 10:15AM ; [facility] PSYCHIATRIC: The patient is alert and oriented to person, place, date and situation. Mood and affect are normal for current situation. - Last Documented On 03/09/2022 10:15AM ; [facility] NEUROLOGICAL: Sensation normal bilateral upper and lower extremities. - Last Documented On 03/09/2022 10:15AM ; [facility] LYMPHATIC: No pitting edema noted in the lower extremities. - Last Documented On 03/09/2022 10:15AM ; [facility] SKIN: No lesions noted on upper or lower extremities. Skin is dry, warm and with normal turgor. - Last Documented On 03/09/2022 10:15AM ; [facility] VASCULAR: No swelling in upper or lower extremities other than described below in extremity exam. Dorsalis Pedis Pulses normal in lower extremities. - Last Documented On 03/09/2022 10:15AM ; [facility] GAIT AND STATION: antalgic gait without assistive devices. Station normal. - Last Documented On 03/09/2022 10:15AM ; [facility] LEFT KNEE: No Deformity. [...] - Last Documented On 03/09/2022 10:15AM ; [facility] Sensation intact in the saphenous, sural, deep peroneal, superficial peroneal, and tibial distribution. Able to fire EHL, FHL, gastroc, soleus, peroneals, and tibialis anterior. Warm and well-perfused distally with 2+ dorsalis pedis pulse. - Last Documented On 03/09/2022 10:15AM ; [facility] RIGHT KNEE: No Deformity. Normal Q [...] - Last Documented On 03/09/2022 10:15AM ; [facility] Assessment and plan: - Last Documented On 03/09/2022 10:15AM ; [facility], [facility] 52-year-old female has had a history of 2 knee surgeries 1 medial meniscus repair and then the second surgery was to take out the repair and do a medial meniscectomy. 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 to see if we can [...] - Last Documented On 03/09/2022 10:15AM ; [facility] Instructions Includes: Instructions from this encounter Instructions to patient Lose weight Last Documented On 9:38AM ; [facility], [facility] Medical Equipment - Implanted Devices Includes: Current Devices No Medical Equipment Recorded Medications Includes: Medications discussed during this encounter and other current Medications Current Medications (continue as prescribed) Hyoscyamine Sulfate 0.125 MG Sublingual Tablet Subling ual 11/29/2021 Provider: Diagnosis: Last Documented On 2 1:44PM By Kadie Ovalle ; [facility], [facility] Ondansetron 4 MG Oral Tablet Disintegrating 11/29/2021 Provider: Diagnosis: Last Documented On 2 1:44PM By Kadie Ovalle ; [facility], [facility] CVS Vitamin D3 250 MCG (66345 UT) Oral Capsule 022 Provider: Diagnosis: Last Documented On 2 2:35PM By Kadie [facility] B Complex-B12 Oral Tablet 11/24/2021 Provider: Diagnosis: Last Documented On 2 2:35PM By Kadie Ovalle ; [facility], [facility] Past Medications on file Contrave 8-90 MG Oral Tablet Extended Release 12 Hour 11/24/2021 - 12/24/2021 Provider: Diagnosis: Last Documented On 2 2:35PM By Kadie Ovalle ; [facility] Aspirin EC 81 MG Oral Tablet Delayed Release 08/09/2021 - 08/23/2021 Provider: Rafael Farris MD Diagnosis: once a day Last Documented On 1 7:09PM By Rafael Farris M.D. ; [facility] Zofran 4 MG Oral Tablet 08/09/2021 - 08/21/2021 Provid er: Rafael Farris MD Diagnosis: 1 tablet every 6-8 hrs for post op nausea Last Documented On 1 7:08PM By Rafael Farris M.D. ; [facility] oxyCODONE HCl 5 MG Oral Tablet 08/09/2021 - 08/12/2021 Provider: Rafael Farris MD Diagnosis: 1-2 tablets by mouth every 4-6 hrs for post op p ain Last Documented On 1 7:10PM By Rafael Farris M.D. ; [facility] oxyCODONE HCl 5 MG Oral Tablet 03/03/2021 - 03/06/2021 Provider: Rafael Farris MD Diagnosis: 1-2 po q 4-6h 1-2 tablets every 4-6hrs for post op pain Last Documented On 1 5:38PM By Rafael Farris M.D. ; [facility] Zofran 4 MG Oral Tablet 03/01/2021 - 03/13/2021 Provid er: Rafael Farris MD Diagnosis: 1 tablet every 6-8 hrs for post op nausea Last Documented On 1 9:21AM By Lianne Gamboa ; [facility] Phenergan 25 MG RE SUPP 06/01/2008 - 06/06/2008 Provid er: Bari Ambriz MD Diagnosis: cb [phone] Last Documented On 8 1:35PM By Marylu Rendon ; [facility], [facility] Percocet 5-325 MG OR TABS 05/26/2008 - 05/31/2008 Prov ider: Bari Ambriz MD Diagnosis: cb Last Documented On 8 9:13AM By Marylu Rendon ; [facility], [facility] Medications Administered Includes: Administered Medications from this encounter No Administered Medications Recorded Vital Signs Includes: Vital Signs from this encounter Vital Name 03/09/2022 09:42A Blood Pressure Sitting (mmHg) 148/79 Pulse Rate-Sitting (bpm) 73 Height (in) 65 Weight (lb) 188 Body Mass Index (kg/m2) 31.3 Body Surface Area (m2) 1.9 Note: dp Last Documented: On 03/09/2022 9:43AM ; [facility] Results Includes: Results discussed during [...] 01/23/2022 Last Documented On 2 9:38AM ; [facility] Not a current smoker. 11/24/2021 Last Documented On 2 9:38AM ; [facility] Non-smoker 12/30/2020 Last Documented On 2 9:38AM ; [facility] Caffeine use 12/30/2020 Last Documented On 2 9:38AM ; [facility] No recent change in diet 12/30/2020 Last Documented On 2 9:38AM ; [facility] Not a current smoker. 12/30/2020 Last Documented On 2 9:38AM ; [facility] Not exercising regularly 12/30/2020 Last Documented On 2 9:38AM ; [facility] Not using alcohol 12/30/2020 Last Documented On 2 9:38AM ; [facility] Not using drugs 12/30/2020 Last Documented On 2 9:38AM ; [facility] Smoking Status Unknown Procedures and Surgical History Includes: Procedures from this encounter Procedures Code Diagnosis Performing Provider Service L ocation Service Date use of tobacco assessment performed 1000F Last Documented On 2 9:38AM ; [facility] follow-up visit in one month with PCP fo r elevated BP Last Documented On 2 9:44AM ; [facility] referral to physician Last Documented On 2 9:38AM ; [facility] referral to physician Last Documented On 2 9:44AM ; [facility] Medical History Includes: Medical History addressed during this encounter Description Last Updated Heartburn / Acid Reflux 12/30/2020 Last Documented On 2 9:38AM ; [facility] Hypertension 12/30/2020 Last Documented On 2 9:38AM ; [facility] Hysterectomy 12/30/2020 Last Documented On 2 9:38AM ; [facility] No recent immunization for flu 1 Last Documented On 2 9:38AM ; [facility] No recent immunization for pneumococcal pneumonia 12/30/2020 Last Documented On 2 9:38AM ; [facility] Past Surgical History: trigger thumb rel ease, elbow deprivement 12/30/2020 Last Documented On 2 9:38AM ; [facility] Family History Includes: Family History addressed during this encounter Description Last Updated Family history of systemic hypertension 01/23/2022 Last Documented On 2 9:38AM ; [facility] Diabetes mellitus 12/30/2020 Last Documented On 2 9:38AM ; [facility] Family history of cancer 12/30/2020 Last Documented On 2 9:38AM ; [facility] Family history of heart disease 12/31/19 21 Last Documented On 2 9:38AM ; [facility] Family history of osteoporosis 1 Last Documented On 2 9:38AM ; [facility] Family history of rheumatoid arthritis 0 12/30/2020 Last Documented On 2 9:38AM ; [facility] Family history of thromboembolic disease 12/30/2020 Last Documented On 2 9:38AM ; [facility] Stroke / Seizures 12/30/2020 Last Documented On 2 9:38AM ; [facility] Review of Systems Includes: Review of [...] Time Diagnosis Follow Up Rafael Farris MD [facility] 2 9:37AM 10:11AM Insurance Includes: Active Insurance Policies Plan Name Member ID Group # Subscriber Relationship Effect whitney Dates 1 - [facility] [id number] MELANI PLEITEZ 09/23/2020 - Unknown Clinical Notes Includes: Clinical Notes from this encounter No Clinical Notes Recorded
--- OUTSIDE RECORDS SUMMARY | 2024-12-31 19:43 | XMS_ITS | Clinical Summary ---
Author Organization [facility] Address [address] [place] [address] Phone Care Team Providers Care Diesel Engine Specialist Name Role Phone Brenton PEOPLES, Rafael Encarnacion Unavailable [phone] MELANI PRINCE Primary Care Provider [phone] Reason for Referral Date Encounter Description Provider [...] Active Last Documented On 5 11:09AM ; [facility], [facility] Past Visits Onset Date Resolved Date Provider Condition Status Neck Pain 10/29/2024 Qasim Henderson Active Last Documented On 5 11:09AM ; [facility] Joint Pain in the Left Knee 12/30/2020 Tomer Castillo MD Active Last Documented On 1 8:35AM ; [facility], [facility] Plan of Treatment Pending Tests Order Diagnosis Results Due Ordering Shashank campbell Radiology - MRI MRI L Knee 07/14/21 Rafael Blair MD Last Documented On 1 1:16PM ; [facility], [facility] Instructions to patient Lose weight Last Documented On 2 12:10PM ; [facility] Assessments Includes: Assessments from this [...] - Last Documented On 01/24/2022 8:17AM ; [facility], [facility] 12/05/2021 patient is back for [...] - Last Documented On 01/24/2022 8:17AM ; [facility] 12/12/21- patients presenting for follow-up evaluation. [...] - Last Documented On 01/24/2022 8:17AM ; [facility] 01/23/22- return for follow-up. Unfortunately she continues with the same symptoms she has been having of pain over the medial side of the knee. Her symptoms continue to affect her quality of life and activities of daily living. Pain continues to be on the medial side of the joint. - Last Documented On 01/24/2022 8:17AM ; [facility], [facility] Physical exam: - Last Documented On 01/24/2022 8:17AM ; [facility] CONSTITUTIONAL: Well developed, well groomed, well nourished patient in no acute distress who appears stated age, height and weight. - Last Documented On 01/24/2022 8:17AM ; [facility] PSYCHIATRIC: The patient is alert and oriented to person, place, date and situation. Mood and affect are normal for current situation. - Last Documented On 01/24/2022 8:17AM ; [facility] NEUROLOGICAL: Sensation normal bilateral upper and lower extremities. - Last Documented On 01/24/2022 8:17AM ; [facility] LYMPHATIC: No pitting edema noted in the lower extremities. - Last Documented On 01/24/2022 8:17AM ; [facility] SKIN: No lesions noted on upper or lower extremities. Skin is dry, warm and with normal turgor. - Last Documented On 01/24/2022 8:17AM ; [facility] VASCULAR: No swelling in upper or lower extremities other than described below in extremity exam. Dorsalis Pedis Pulses normal in lower extremities. - Last Documented On 01/24/2022 8:17AM ; [facility] GAIT AND STATION: antalgic gait without assistive devices. Station normal. - Last Documented On 01/24/2022 8:17AM ; [facility] LEFT KNEE: No Deformity. No discoloration. [...] - Last Documented On 01/24/2022 8:17AM ; [facility] Sensation intact in the saphenous, sural, deep peroneal, superficial peroneal, and tibial distribution. Able to fire EHL, FHL, gastroc, soleus, peroneals, and tibialis anterior. Warm and well-perfused distally with 2+ dorsalis pedis pulse. - Last Documented On 01/24/2022 8:17AM ; [facility] RIGHT KNEE: No Deformity. Normal Q [...] - Last Documented On 01/24/2022 8:17AM ; [facility] Assessment and plan: - Last Documented On 01/24/2022 8:17AM ; [facility] 51-year-old female has had a history [...] - Last Documented On 01/24/2022 8:17AM ; [facility] 51-year-old female visiting for second postoperative [...] - Last Documented On 01/24/2022 8:17AM ; [facility] 12/05/2021 patient is back for [...] - Last Documented On 01/24/2022 8:17AM ; [facility] Physical exam: - Last Documented On 01/24/2022 8:17AM ; [facility] Well-appearing in no acute distress. - Last Documented On 01/24/2022 8:17AM ; [facility] Evaluation of the left lower [...] - Last Documented On 01/24/2022 8:17AM ; [facility] Assessment and plan: - Last Documented On 01/24/2022 8:17AM ; [facility] 51-year-old female has had a [...] - Last Documented On 01/24/2022 8:17AM ; [facility] Instructions Includes: Instructions from this encounter Instructions to patient Lose weight Last Documented On 2 12:10PM ; [facility] Medical Equipment - Implanted Devices Includes: Current Devices No Medical Equipment Recorded Medications Includes: Medications discussed during this encounter and other current Medications Current Medications (continue as prescribed) Hyoscyamine Sulfate 0.125 MG Sublingual Tablet Subling ual 11/29/2021 Provider: Diagnosis: Last Documented On 2 1:44PM By Kadie Ovalle ; [facility] Ondansetron 4 MG Oral Tablet Disintegrating 11/29/2021 Provider: Diagnosis: Last Documented On 2 1:44PM By Kadie Ovalle ; [facility] Vitamin D3 250 MCG (72443 UT) Oral Capsule 022 Provider: Diagnosis: Last Documented On 2 2:35PM By Kadie Ovalle ; [facility] B Complex-B12 Oral Tablet 11/24/2021 Provider: Diagnosis: Last Documented On 2 2:35PM By Kadiechun Ovalle ; [facility] Past Medications on file Contrave 8-90 MG Oral Tablet Extended Release 12 Hour 11/24/2021 - 12/24/2021 Provider: Diagnosis: Last Documented On 2 2:35PM By Kadie Ovalle ; [facility] Aspirin EC 81 MG Oral Tablet Delayed Release 08/09/2021 - 08/23/2021 Provider: Rafael Farris MD Diagnosis: once a day Last Documented On 1 7:09PM By Rafael Farris M.D. ; [facility] Zofran 4 MG Oral Tablet 08/09/2021 - 08/21/2021 Provid er: Rafael Farris MD Diagnosis: 1 tablet every 6-8 hrs for post op nausea Last Documented On 1 7:08PM By Rafael Farris M.D. ; [facility] oxyCODONE HCl 5 MG Oral Tablet 08/09/2021 - 08/12/2021 Provider: Rafael Farris MD Diagnosis: 1-2 tablets by mouth every 4-6 hrs for post op p ain Last Documented On 1 7:10PM By Rafael Farris M.D. ; [facility] oxyCODONE HCl 5 MG Oral Tablet 03/03/2021 - 03/06/2021 Provider: Rafael Farris MD Diagnosis: 1-2 po q 4-6h 1-2 tablets every 4-6hrs for post op pain Last Documented On 1 5:38PM By Rafael Farris M.D. ; [facility] Zofran 4 MG Oral Tablet 03/01/2021 - 03/13/2021 Provid er: Rafael Farris MD Diagnosis: 1 tablet every 6-8 hrs for post op nausea Last Documented On 1 9:21AM By Lianne Gamboa ; [facility] Phenergan 25 MG RE SUPP 06/01/2008 - 06/06/2008 Provid er: Bari Ambriz MD Diagnosis: cb [phone] Last Documented On 8 1:35PM By Marylu Rendon ; [facility] Percocet 5-325 MG OR TABS 05/26/2008 - 05/31/2008 Prov ider: Bari Ambriz MD Diagnosis: cb Last Documented On 8 9:13AM By Marylu Rendon ; [facility], [facility] Medications Administered Includes: Administered Medications from this encounter No Administered Medications Recorded Vital Signs Includes: Vital Signs from this encounter Vital Name 01/23/2022 11:53A Blood Pressure Sitting (mmHg) 128/84 Pulse Rate-Sitting (bpm) 86 Height (in) 65 Weight (lb) 175.2 Body Mass Index (kg/m2) 29.2 Body Surface Area (m2) 1.9 Note: cbb Last Documented: On 01/23/2022 11:53A M ; [facility] Results Includes: Results [...] Last Documented On 2 8:17AM ; [facility] Not a current smoker. 11/24/2021 Last Documented On 2 11:53AM ; [facility] Non-smoker 12/30/2020 Last Documented On 2 11:53AM ; [facility] Caffeine use 12/30/2020 Last Documented On 2 11:53AM ; [facility] No recent change in diet 12/30/2020 Last Documented On 2 11:53AM ; [facility] Not a current smoker. 12/30/2020 Last Documented On 2 11:53AM ; [facility] Not exercising regularly 12/30/2020 Last Documented On 2 11:53AM ; [facility] Not using alcohol 12/30/2020 Last Documented On 2 11:53AM ; [facility] Not using drugs 12/30/2020 Last Documented On 2 11:53AM ; [facility] Smoking Status Unknown Procedures and Surgical History Includes: Procedures from this encounter Procedures Code Diagnosis Performing Provider Service L ocation Service Date use of tobacco assessment performed 1000F Last Documented On 2 12:10PM ; [facility] referral to physician Last Documented On 2 12:10PM ; [facility], [facility] Medical History Includes: Medical History addressed during this encounter Description Last Updated Heartburn / Acid Reflux 12/30/2020 Last Documented On 2 11:53AM ; [facility] Hypertension 12/30/2020 Last Documented On 2 11:53AM ; [facility] Hysterectomy 12/30/2020 Last Documented On 2 11:53AM ; [facility] No recent immunization for flu 1 Last Documented On 2 11:53AM ; [facility] No recent immunization for pneumococcal pneumonia 12/30/2020 Last Documented On 2 11:53AM ; [facility] Past Surgical History: trigger thumb rel ease, elbow deprivement 12/30/2020 Last Documented On 2 11:53AM ; [facility] Family History Includes: Family History addressed during this encounter Description Last Updated Family history of systemic hypertension 01/23/2022 Last Documented On 2 8:17AM ; [facility] Diabetes mellitus 12/30/2020 Last Documented On 2 11:53AM ; [facility] Family history of cancer 12/30/2020 Last Documented On 2 11:53AM ; [facility] Family history of heart disease 12/31/19 21 Last Documented On 2 11:53AM ; [facility] Family history of osteoporosis 1 Last Documented On 2 11:53AM ; [facility] Family history of rheumatoid arthritis 0 12/30/2020 Last Documented On 2 11:53AM ; [facility] Family history of thromboembolic disease 12/30/2020 Last Documented On 2 11:53AM ; [facility] Stroke / Seizures 12/30/2020 Last Documented On 2 11:53AM ; [facility] Review of Systems Includes: Review of [...] Time Diagnosis Follow Up Rafael Farris MD [facility] 2 11:45AM 12:10PM Insurance Includes: Active Insurance Policies Plan Name Member ID Group # Subscriber Relationship Effect whitney Dates 1 - [facility] [id number] MELANI PLEITEZ 09/23/2020 - Unknown Clinical Notes Includes: Clinical Notes from this encounter No Clinical Notes Recorded
--- OUTSIDE RECORDS SUMMARY | 2024-12-31 19:43 | XMS_ITS ---
Care Plan - [facility], [facility] Created on: December 31, 2024 Daisy Pleitez : 1970 Sex: Female Author Organization [facility] , [facility] Address [address] [address] Phone Care Team Providers Care Ditch Cleaner Name Role Phone Brenton PEOPLES, Rafael Encarnacion Unavailable [phone] MELANI PRINCE Primary Care Provider [phone]
--- OUTSIDE RECORDS SUMMARY | 2024-12-31 19:43 | XMS_ITS ---
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 Name Role Phone Brenton PEOPLES, Rafael Encarnacion Unavailable [phone] MELANI PRINCE Primary Care Provider [phone] Reason for Referral Date Encounter Description Provider [...] Date Resolved Date Provider Condition S tatus Lower Back Pain 10/29/2024 Qasim gonzalez PA-C Active Last Documented On 11:09AM ; [facility] Neck Pain 10/29/2024 Qasim Henderson Active Last Documented On 5 11:09AM ; [facility] Joint Pain in the Left Knee 12/30/2020 Tomer Castillo MD Active Last Documented On 1 8:35AM ; [facility] Plan of Treatment Pending Tests Order Diagnosis Results Due Ordering P rovider Radiology - MRI MRI L Knee 01/13/21 Christiano Castillo MD Last Documented On 1 10:26AM ; [facility] Radiology - MRI MRI L Knee 07/14/21 Rafael Blair MD Last Documented On 1 1:16PM ; [facility] Radiology - MRI MRI L Knee 12/08/21 Darnell Salinas PA-C Last Documented On 2 4:08PM ; [facility] Radiology - MRI MRI Lumbar Spine Low back pain, unspecified 11/12/24 Qasim Lares PA-C Last Documented On 5 11:13AM ; [facility] Radiology - MRI MRI Cervical Spine Cervicalgia 11/12/24 Qasim Lares PA-C Last Documented On 5 11:13AM ; [facility] Instructions to patient Lose weight Last Documented On 5 1:07PM ; [facility] Lose weight Last Documented On 5 10:32AM ; [facility] Lose weight Last Documented On 2 9:38AM ; [facility] Lose weight Last Documented On 2 12:10PM ; [facility] Lose weight Last Documented On [...] Assessments Includes: Assessments for all patient encounters Findings Encounter Date Overweight Follow Up with Ricky Enciso MD 12/03/2024 Last Documented On 5 8:57AM ; [facility] Instructions Includes: Instructions for all patient encounters Instructions to patient Lose weight Last Documented On 5 1:07PM ; [facility] Lose weight Last Documented On 5 10:32AM ; [facility] Lose weight Last Documented On 2 9:38AM [...] weight Last Documented On 1 11:19AM ; [facility] Lose weight Last Documented On 1 11:08AM ; [facility] Lose weight Last Documented On 1 9:17AM ; [facility] Medical Equipment - Implanted Devices Includes: Current and historical Devices No Medical Equipment Recorded Medications Includes: Current and historical Medications Current Medications (continue as prescribed) Hyoscyamine Sulfate 0.125 MG Sublingual Tablet Subling ual 11/29/2021 Provider: Diagnosis: Last Documented On 2 1:44PM By Kadie Ovalle ; [facility] Ondansetron 4 MG Oral Tablet Disintegrating 11/29/2021 Provider: Diagnosis: Last Documented On 2 1:44PM By Kadie Ovalle ; [facility] Vitamin D3 250 MCG (53130 UT) Oral Capsule 022 Provider: Diagnosis: Last Documented On 2 2:35PM By Kadie Ovalle ; [facility] B Complex-B12 Oral Tablet 11/24/2021 Provider: Diagnosis: Last Documented On 2 2:35PM By Kadie Ovalle ; [facility] Past Medications on file Contrave 8-90 MG Oral Tablet Extended Release 12 Hour 11/24/2021 - 12/24/2021 Provider: Diagnosis: Last Documented On 2 2:35PM By Kadie Ovalle ; [facility] Aspirin EC 81 MG Oral Tablet Delayed Release 08/09/2021 - 08/23/2021 Provider: Rafael Farris MD Diagnosis: once a day Last Documented On 1 7:09PM By Rafael Farris M.D. ; [facility] Zofran 4 MG Oral Tablet 08/09/2021 - 08/21/2021 Provid er: Rafael Farris MD Diagnosis: 1 tablet every 6-8 hrs for post op nausea Last Documented On 1 7:08PM By Rafael Farris M.D. ; [facility] oxyCODONE HCl 5 MG Oral Tablet 08/09/2021 - 08/12/2021 Provider: Rafael Farris MD Diagnosis: 1-2 tablets by mouth every 4-6 hrs for post op p ain Last Documented On 1 7:10PM By Rafael Farris M.D. ; [facility] Contrave 8-90 MG Oral Tablet Extended Release 12 Hour 04/05/2021 - 11/24/2021 Provider: Diagnosis: Last Documented On 2 2:35PM By Kadie Ovalle ; [facility] Vitamin D (Ergocalciferol) 1 .25 MG (09581 UT) Oral Capsule 04/02/2021 - 11/24/2021 Provider: Eryn Thakur MD Diagnosis: Last Documented On 2 2:35PM By Kadie Ovalle ; [facility] oxyCODONE HCl 5 MG Oral Tablet 03/03/2021 - 03/06/2021 Provider: Rafael Farris MD Diagnosis: 1-2 po q 4-6h 1-2 tablets every 4-6hrs for post op pain Last Documented On 1 5:38PM By Rafael Farris M.D. ; [facility] Zofran 4 MG Oral Tablet 03/01/2021 - 03/13/2021 Provid er: Rafael Farris MD Diagnosis: 1 tablet every 6-8 hrs for post op nausea Last Documented On 1 9:21AM By Lianne Gamboa ; [facility] Vitamin D3 250 MCG (88523 UT) Oral Capsule 0 12/30/2020 - 11/24/2021 Provider: Diagnosis: Last Documented On 2 2:35PM By Kadie Ovalle ; [facility] B Complex-B12 Oral Tablet 12/30/2020 - 11/24/2021 Prov ider: Diagnosis: Last Documented On 2 2:35PM By Kadie Ovalle ; [facility] Pantoprazole Sodium 40 MG Or al Tablet Delayed Release 12/23/2020 - 11/24/2021 Provider: Diagnosis: Last Documented On 2 2:34PM By Kadie Ovalle ; [facility] Metoprolol Succinate ER 25 M G Oral Tablet Extended Release 24 Hour 12/15/2020 - 11/24/2021 Provider: Diagnosis: Last Documented On 2 2:34PM By Kadie Ovalle ; [facility] Phenergan 25 MG RE SUPP 06/01/2008 - 06/06/2008 Provid er: Bari Ambriz MD Diagnosis: cb [phone] Last Documented On 8 1:35PM By Marylu Rendon ; [facility] Percocet 5-325 MG OR TABS 05/26/2008 - 05/31/2008 Prov ider: Bari Ambriz MD Diagnosis: cb Last Documented On 8 9:13AM By Marylu Rendon ; [facility] Medications Administered Includes: Administered Medications in patient's chart No Administered Medications Recorded Vital Signs Includes: Vital Signs from 01/01/2024 through 12/31/2024 Vital Name 12/03/2024 01:22P 10/29/2024 10: 33A Height (in) 65 65 Weight (lb) 197 195 Body Mass Index 32.8 32.4 Body Surface Area 2 2 Pain Level 3 Note: MG Last Documented: On 12/03/2024 1:22PM ; [facility] On 10/29/2024 10:33AM ; [facility] Results Includes: Results from 01/01/2024 through 12/31/2024 No Results Recorded For Specified Dates History of Present Illness History of Present Illness not supported for this document type No History of Present Illness Recorded Social History Description Last Updated No recent change in diet 01/23/2022 Last Documented On 2 8:17AM ; [facility] Not a current smoker. 11/24/2021 Last Documented On 2 1:12PM ; [facility] Non-smoker 12/30/2020 Last Documented On 1 1:01PM ; [facility] Caffeine use 12/30/2020 Last Documented On 1 1:01PM ; [facility] No recent change in diet 12/30/2020 Last Documented On 1 1:01PM ; [facility] Not a current smoker. 12/30/2020 Last Documented On 1 1:01PM ; [facility] Not exercising regularly 12/30/2020 Last Documented On 1 1:01PM ; [facility] Not using alcohol 12/30/2020 Last Documented On 1 1:01PM ; [facility] Not using drugs 12/30/2020 Last Documented On 1 1:01PM ; [facility] Smoking Status Unknown Procedures and Surgical History Includes: Procedures from 01/01/2024 through 12/31/2024 Procedures Code Diagnosis Performing Provider Service Location Service Date X-RAY EXAM OF LOWER SPINE 2-3 VIEWS LIMITED [address]2517 Radiculopathy, lumbar region Qasim Lares PA-C [facility] 10/29/2024 Last Documented On 5 2:12PM ; [facility] Surgical History Last Updated Past Surgical History: Elbow and meniscu s repair 12/08/2024 Last Documented On 5 8:57AM ; [facility] Medical History Includes: Medical History in patient's chart Description Last Updated History of Heartburn / Acid Reflux 12/08 Last Documented On 5 8:57AM ; [facility] History of Hypertension 12/08/2024 Last Documented On 5 8:57AM ; [facility] Heartburn / Acid Reflux 12/30/2020 Last Documented On 1 1:01PM ; [facility] Hypertension 12/30/2020 Last Documented On 1 1:01PM ; [facility] Hysterectomy 12/30/2020 Last Documented On 1 1:01PM ; [facility] No recent immunization for flu 1 Last Documented On 1 1:01PM ; [facility] No recent immunization for pneumococcal pneumonia 12/30/2020 Last Documented On 1 1:01PM ; [facility] Past Surgical History: trigger thumb rel ease, elbow deprivement 12/30/2020 Last Documented On 1 1:01PM ; [facility] Family History Includes: Family History in patient's chart Description Last Updated Family history of systemic hypertension 01/23/2022 Last Documented On 2 8:17AM ; [facility] Diabetes mellitus 12/30/2020 Last Documented On 1 1:01PM ; [facility] Family history of cancer 12/30/2020 Last Documented On 1 1:01PM ; [facility] Family history of heart disease 12/31/19 21 Last Documented On 1 1:01PM ; [facility] Family history of osteoporosis 1 Last Documented On 1 1:01PM ; [facility] Family history of rheumatoid arthritis 0 12/30/2020 Last Documented On 1 1:01PM ; [facility] Family history of thromboembolic disease 12/30/2020 Last Documented On 1 1:01PM ; [facility] Stroke / Seizures 12/30/2020 Last Documented On 1 1:01PM ; [facility] Review of Systems Review of Systems not [...] 1 11/24/2021 Complete (Refused - Patient objection) [facility] Last Documented On 2 2:36PM ; [facility] PCV (Pneumovax 23) 1 11/24/2021 Complete (Refused - Patient objection) [facility] Last Documented On 2 2:36PM ; [facility] Allergies Includes: Active, inactive, and resolved Allergies No Known Allergies Encounters Includes: Encounters from 01/01/2024 through 12/31/2024 Encounter Provider Location Date Check-In Time Check-Out Time Diagnosis Follow Up Ricky Enciso MD [facility] 025 1:05PM 1:35PM Overweight Next Available Non-Specified Physician Qasim Lares PA-C [facility] 025 10:18AM 11:12AM Insurance Includes: Active Insurance Policies Plan Name Member ID Group # Subscriber Relationship Effect whitney Dates 1 - [facility] [id number] MELANI ROSS 09/23/2020 - Unknown Clinical Notes Includes: Signed Clinical Notes starting from 09/06/2022 * Progress note Date Encounter Last Documented by 12/03/2024 Follow Up Last documented on 12/08/2024; 8:57 AM, Ricky Enciso MD; [facility] Active Problems & Conditions - Joint Pain in the Left Knee - Lower Back Pain - Neck Pain Chief Complaint The Chief Complaint is: NECK AND MID BACK PAIN. Referred Here Referred by self. History of Present Illness Daisy Ross is a 54 year old female. - Allergy list reviewed - Problem list reviewed - Medication list reviewed - - Review of medications documented Current Medication - B Complex-B12 Oral Tablet use as directed 0 days, 0 refills - [facility] Vitamin D3 250 MCG (17396 UT) Oral Capsule use as directed 0 days, 0 refills - Hyoscyamine Sulfate 0.125 MG Sublingual Tablet Sublingual 5 days, 0 refills - Ondansetron 4 MG Oral Tablet Disintegrating 3 days, 0 refills Past Medical/Surgical History Diagnoses: Heartburn / Acid Reflux. Heartburn / Acid Reflux. Hypertension. Hypertension Surgical: - Past Surgical History: Elbow and meniscus repair Social History Not a current smoker. Current diet: No recent change in diet. Caffeine use: Caffeine use. Tobacco use: Non-smoker. Alcohol: Not using alcohol. Drug Use: Not using drugs. Habits: Not exercising regularly. Allergies - No Known Allergies Family History Cancer Heart disease Stroke / Seizures Diabetes mellitus Systemic hypertension Thromboembolic disease Osteoporosis Rheumatoid arthritis Review Of Systems Systemic: Not feeling tired and no recent weight loss. Recent weight gain. Head: No headache and no sinus pain. Eyes: No vision problems and no Cataracts. Glasses/Contacts. No Glaucoma. Otolaryngeal: No hearing loss and no tinnitus. Cardiovascular: No chest pain or discomfort, no palpitations, no Hypertension, and no High Cholesterol. Pulmonary: No daytime asthma symptoms and no chronic cough. No wheezing. Gastrointestinal: No heartburn and no abdominal pain. No Indigestion, no Peptic Ulcer, no GI Stomach Bleed, no Ulcers, and no Acid Reflux. Endocrine: No hot flashes. Muscle weakness. No Diabetes, no Hypothyroid, and no Hyperthyroid. Hematologic: No easy bleeding, no tendency for easy bruising, and no Anemia. Musculoskeletal: Arthritis and lower back pain. No soft tissue swelling. Pain localized to one or more joints. Neurological: No dizziness, no convulsions, and no numbness. Psychological: No anxiety, no emotional lability, no depression, and no insomnia. Not crying for no reason. Skin: No dry skin. No Ulcers, no Scars, and no rash. Allergic and Immunologic: No complaint of seasonal allergic reaction. Physical Findings - Vitals taken 12/03/2024 01:22 pm Height 65 in Weight 197 lbs Body Mass Index 32.8 kg/m2 Body Surface Area 2 m2 Pain Level 3 Assessment - Overweight Previous Tests Available previous imaging studies were reviewed Available previous history reviewed Counseling/Education - Tobacco non-user - Use of tobacco assessment performed - Lose weight Notes This dictation was done with voice recognition software and may contain errors and omissions. Patient is here with complaints of neck pain and back pain. She has RA. She takes medications and fusions for it. She has seen physical therapy. She has good strength in both upper and lower extremities. Normal sensation palpable pulse good skin turgor. Her MRI shows some mild spondylosis of the cervical spine in her lumbar spine is generally normal. I think she would benefit from a home exercise program. She is happy that she just does not need surgery want to make sure another was nothing off this she had the wrong. She is happy with our visit today we will see her back as needed. Practice Management Use of tobacco assessment performed. Care Team - MELANI PRINCE - [employer] Health Reminders - Assess BMI satisfied 12/03/2024. - Assess Tobacco Use satisfied 12/03/2024. - Follow Up Plan BMI Management satisfied 12/03/2024. * Progress note Date Encounter Last Documented by 10/29/2024 Next Available Non-S pecified Physician Last documented on 10/29/2024; 11:13 AM, Qasim Lares PA-C; [facility] Active Problems & Conditions - Joint Pain in the Left Knee - Lower Back Pain - Neck Pain Chief Complaint The Chief Complaint is: NECK AND MID BACK PAIN. Referred Here Referred by self. History of Present Illness Daisy Ross is a 54 year old female. - Allergy list reviewed - Problem list reviewed - Medication list reviewed 54-year-old lady with a chief complaint neck and low back pain in his well as left leg radiculopathy. She says she has been diagnosed with rheumatoid arthritis and she just underwent her 1st recent and fusion. She is going to 1 visit of physical therapy work on her neck and low back but she says it is degrees pain. She was she was lot of stiffness with her neck difficulty moving her neck around worse in the evenings actually but no significant arm pain and weakness. She was tingling and numbness and pain that radiates down the left leg to her ankle as well as debilitating low back pain she says her worse complaint. She says she was very concerned about possible cancer a bone cancer in his a high history of several family members that have had bone cancer this is really concerning her. She denies night sweats but she says she does get hot flashes however this could be due to her age of a perimenopausal female. She denies any unexplained weight loss. Denies any known history of personal cancer. Current Medication - B Complex-B12 Oral Tablet use as directed 0 days, 0 refills - [facility] Vitamin D3 250 MCG (91214 UT) Oral Capsule use as directed 0 days, 0 refills - Hyoscyamine Sulfate 0.125 MG Sublingual Tablet Sublingual 5 days, 0 refills - Ondansetron 4 MG Oral Tablet Disintegrating 3 days, 0 refills Past Medical/Surgical History Reported: Immunization History: No recent immunization for flu and not for pneumococcal pneumonia. Diagnoses: Heartburn / Acid Reflux Hypertension Surgical: - Past Surgical History: trigger thumb release, elbow deprivement - Hysterectomy Social History Not a current smoker. Not a current smoker. Current diet: No recent change in diet. No recent change in diet. Caffeine use: Caffeine use. Tobacco use: Non-smoker. Alcohol: Not using alcohol. Drug Use: Not using drugs. Habits: Not exercising regularly. Allergies - No Known Allergies Family History Cancer Heart disease Stroke / Seizures Diabetes mellitus Systemic hypertension Thromboembolic disease Osteoporosis Rheumatoid arthritis Review Of Systems Systemic: Not feeling tired, no recent weight [...] and no abdominal pain. No Indigestion, no Peptic Ulcer, no GI Stomach Bleed, no Ulcers, and no Acid Reflux. Endocrine: No hot flashes, no muscle weakness, [...] Immunologic: No complaint of seasonal allergic reaction. Physical Findings - Vitals taken 10/29/2024 10:33 am MG Height 65 in Weight 195 lbs Body Mass Index 32.4 kg/m2 Body Surface Area 2 m2 Pleasant, alert and oriented x3 Patient walks with a normal gait and no assistive device No acute distress. Non-labored respirations Normal affect, appropriate mood. Extraocular motor movements intact. Normal hearing Normal range of motion of cervical spine with flexion, extension, rotation. No bruising or swelling of the neck. 5 out of 5 strength bilateral deltoids, triceps, and wrist extension. No long track findings. Negative Roman. Negative radial reflex. Radial pulses intact. Good skin turgor. Patient is nontender to palpation lower lumbar spine. No bruising. Positive straight leg raise test of the left 5 out of 5 strength in bilateral EHL, tibialis anterior, and gastrocnemius.No edema or swelling of the lower extremities. Painful range of motion left knee Tests Three-view outside cervical x-rays were reviewed demonstrate normal alignment with mild spondylotic change. No erosion or irregularity of the ERASMO or dens. No bony lesion or mass seen Outside Thoracic x-rays were reviewed without any acute abnormality no tumor or mass. Normal alignment. Two-view lumbar x-rays were obtained in office today that demonstrates normal alignment mild degenerative change. No spondylolisthesis no fracture. Assessment Cervicalgia, rheumatoid arthritis Back pain Low back pain, lumbar radiculopathy, left leg Plan: We had a discussion. She just started physical therapist strongly encouraged her to continue this and develop a core exercises well as posture strengthening routine and flexibility. We are not doing do any medicines she was getting infusions for RA. Last time we talked about has she has continued pain she would like this further evaluated we will order a cervical and a lumbar MRI, cervical MRI due to her rheumatoid arthritis and neck pain and lumbar MRI due to low back pain with referred pain down the left leg. Follow up after MRIs Patient was seen by Dr. Enciso and myself. Electronically signed Qasim Lares PA-C Counseling/Education - Lose weight Plan StartCited - Cervicalgia Radiology/MRI: MRI Cervical Spine EndCited StartCited - Low back pain, unspecified Radiology/MRI: MRI Lumbar Spine Therapy/Physical Therapy: Lumbar, Cervical Instructions: See PT order attached EndCited Notes This dictation was done with voice recognition software and may contain errors and omissions. Practice Management Use of tobacco assessment performed. Care Team - MELANI PRINCE - [employer]
--- OUTSIDE RECORDS SUMMARY | 2024-12-31 19:43 | XMS_ITS | Clinical Summary ---
Author Organization [facility] Address [address] [place] [address] Phone Care Team Providers Care Bitumen Plant Operator Name Role Phone Brenton PEOPLES, Rafael Encarnacion Unavailable [phone] MELANI PRINCE Primary Care Provider [phone] Reason for Visit and Chief Complaint The Chief Complaint is: NECK AND MID BACK PAIN Problems Includes: Problems addressed during this encounter and other active Problems Current Visit Onset Date Resolved Date Provider Conditio n Status Lower Back Pain 10/29/2024 Qasim gonzalez PA-C Active Last Documented On 5 11:09AM ; [facility] Neck Pain 10/29/2024 Qasim Henderson Active Last Documented On 5 11:09AM ; [facility] Past Visits Onset Date Resolved Date Provider Condition Status Joint Pain in the Left Knee 12/30/2020 Christiano Castillo MD Active Last Documented On 1 8:35AM ; [facility] Plan of Treatment Pending Tests Order Diagnosis Results Due Ordering P rovider Therapy - Physical Therapy Lumbar Low back pain, unspecified 10/29/24 Qasim Lares PA-C Last Documented On 5 11:13AM ; [facility] Therapy - Physical Therapy Cervical Low back pain, unspecified 10/29/24 Qasim Lares PA-C Last Documented On 5 11:13AM ; [facility] Radiology - MRI MRI Lumbar Spine Low back pain, unspecified 11/12/24 Qasim Lares PA-C Last Documented On 5 11:13AM ; [facility] Radiology - MRI MRI Cervical Spine Cervicalgia 11/12/24 Qasim Lares PA-C Last Documented On 5 11:13AM ; [facility] Instructions to patient Lose weight Last Documented On 5 10:32AM ; [facility] Assessments Includes: Assessments from this encounter Findings Cervicalgia, rheumatoid arthritis - Last Documented On 10/29/2024 11:13AM ; [facility] Back pain - Last Documented On 10/29/2024 11:13AM ; [facility] Low back pain, lumbar radiculopathy, left leg - Last Documented On 10/29/2024 11:13AM ; [facility] Plan: We had a discussion. She just [...] with referred pain down the left leg. - Last Documented On 10/29/2024 11:13AM ; [facility] Follow up after MRIs - Last Documented On 10/29/2024 11:13AM ; [facility] Patient was seen by Dr. Enciso and myself. - Last Documented On 10/29/2024 11:13AM ; [facility] Electronically signed Qasim Lares PA-C - Last Documented On 10/29/2024 11:13AM ; [facility] Instructions Includes: Instructions from this encounter Instructions to patient Lose weight Last Documented On 5 10:32AM ; [facility] Medical Equipment - Implanted Devices Includes: Current Devices No Medical Equipment Recorded Medications Includes: Medications discussed during this encounter and other current Medications Current Medications (continue as prescribed) Hyoscyamine Sulfate 0.125 MG Sublingual Tablet Subling ual 11/29/2021 Provider: Diagnosis: Last Documented On 2 1:44PM By Kadie Ovalle ; [facility] Ondansetron 4 MG Oral Tablet Disintegrating 11/29/2021 Provider: Diagnosis: Last Documented On 2 1:44PM By Kadie Ovalle ; [facility] Vitamin D3 250 MCG (43170 UT) Oral Capsule 022 Provider: Diagnosis: Last Documented On 2 2:35PM By Kadie Ovalle ; [facility] B Complex-B12 Oral Tablet 11/24/2021 Provider: Diagnosis: Last Documented On 2 2:35PM By Kadie Ovalle ; [facility] Past Medications on file Contrave 8-90 MG Oral Tablet Extended Release 12 Hour 11/24/2021 - 12/24/2021 Provider: Diagnosis: Last Documented On 2 2:35PM By Kadie Ovalle ; [facility] Aspirin EC 81 MG Oral Tablet Delayed Release 08/09/2021 - 08/23/2021 Provider: Rafael Farris MD Diagnosis: once a day Last Documented On 1 7:09PM By Rafael Farris M.D. ; [facility] Zofran 4 MG Oral Tablet 08/09/2021 - 08/21/2021 Provid er: Rafael Farris MD Diagnosis: 1 tablet every 6-8 hrs for post op nausea Last Documented On 1 7:08PM By Rafael Farris M.D. ; [facility] oxyCODONE HCl 5 MG Oral Tablet 08/09/2021 - 08/12/2021 Provider: Rafael Farris MD Diagnosis: 1-2 tablets by mouth every 4-6 hrs for post op p ain Last Documented On 1 7:10PM By Rafael Farris M.D. ; [facility] oxyCODONE HCl 5 MG Oral Tablet 03/03/2021 - 03/06/2021 Provider: Rafael Farris MD Diagnosis: 1-2 po q 4-6h 1-2 tablets every 4-6hrs for post op pain Last Documented On 1 5:38PM By Rafael Farris M.D. ; [facility], [facility] Zofran 4 MG Oral Tablet 03/01/2021 - 03/13/2021 Provid er: Rafael Farris MD Diagnosis: 1 tablet every 6-8 hrs for post op nausea Last Documented On 1 9:21AM By Lianne Gamboa ; [facility], [facility] Phenergan 25 MG RE SUPP 06/01/2008 - 06/06/2008 Provid er: Bari Ambriz MD Diagnosis: cb [phone] Last Documented On 8 1:35PM By Marylu Rendon ; [facility] Percocet 5-325 MG OR TABS 05/26/2008 - 05/31/2008 Prov ider: Bari Ambriz MD Diagnosis: cb Last Documented On 8 9:13AM By Marylu Rendon ; [facility], [facility] Medications Administered Includes: Administered Medications from this encounter No Administered Medications Recorded Vital Signs Includes: Vital Signs from this encounter Vital Name 10/29/2024 10:33A Height (in) 65 Weight (lb) 195 Body Mass Index 32.4 Body Surface Area 2 Note: MG Last Documented: On 10/29/2024 10:33A M ; [facility], [facility] Results Includes: Results discussed during this encounter No Results Recorded For Specified Dates History of Present Illness Includes: History of Present Illness from this encounter SHAILESH Pleitez is a 54 year old female. - [...] Denies any known history of personal cancer. Social History Description Last Updated No recent change in diet 01/23/2022 Last Documented On 5 10:32AM ; [facility] Not a current smoker. 11/24/2021 Last Documented On 5 10:32AM ; [facility] Non-smoker 12/30/2020 Last Documented On 5 10:32AM ; [facility] Caffeine use 12/30/2020 Last Documented On 5 10:32AM ; [facility] No recent change in diet 12/30/2020 Last Documented On 5 10:32AM ; [facility] Not a current smoker. 12/30/2020 Last Documented On 5 10:32AM ; [facility] Not exercising regularly 12/30/2020 Last Documented On 5 10:32AM ; [facility] Not using alcohol 12/30/2020 Last Documented On 5 10:32AM ; [facility] Not using drugs 12/30/2020 Last Documented On 5 10:32AM ; [facility] Smoking Status Unknown Procedures and Surgical History Includes: Procedures from this encounter Procedures Code Diagnosis Performing Provider Service Location Service Date X-RAY EXAM OF LOWER SPINE 2-3 VIEWS LIMITED 62749 Radiculopathy, lumbar region Qasim Lares PA-C [facility] [place] 10/29/2024 Last Documented On 5 2:12PM ; [facility] use of tobacco assessment performed 1000F Last Documented On 5 10:32AM ; [facility] Medical History Includes: Medical History addressed during this encounter Description Last Updated Heartburn / Acid Reflux 12/30/2020 Last Documented On 5 10:32AM ; [facility] Hypertension 12/30/2020 Last Documented On 5 10:32AM ; [facility] Hysterectomy 12/30/2020 Last Documented On 5 10:32AM ; [facility] No recent immunization for flu 1 Last Documented On 5 10:32AM ; [facility] No recent immunization for pneumococcal pneumonia 12/30/2020 Last Documented On 5 10:32AM ; [facility] Past Surgical History: trigger thumb rel ease, elbow deprivement 12/30/2020 Last Documented On 5 10:32AM ; [facility] Family History Includes: Family History addressed during this encounter Description Last Updated Family history of systemic hypertension 01/23/2022 Last Documented On 5 10:32AM ; [facility] Diabetes mellitus 12/30/2020 Last Documented On 5 10:32AM ; [facility] Family history of cancer 12/30/2020 Last Documented On 5 10:32AM ; [facility] Family history of heart disease 12/31/19 21 Last Documented On 5 10:32AM ; [facility] Family history of osteoporosis 1 Last Documented On 5 10:32AM ; [facility] Family history of rheumatoid arthritis 0 12/30/2020 Last Documented On 5 10:32AM ; [facility] Family history of thromboembolic disease 12/30/2020 Last Documented On 5 10:32AM ; [facility] Stroke / Seizures 12/30/2020 Last Documented On 5 10:32AM ; [facility] Review of Systems Includes: Review of [...] Location Date Check-In Time Check-Out Time Diagnosis Next Available Non-Specified Physician Qasim Lares PA-C [facility] 10/29/19 25 10:18AM 11:12AM Insurance Includes: Active Insurance Policies Plan Name Member ID Group # Subscriber Relationship Effect whitney Dates 1 - [facility] [id number] ROWELL 09/23/2020 - Unknown Clinical Notes Includes: Clinical Notes from this encounter * Progress note Date Encounter Last Documented by 10/29/2024 Next Available Non-S pecified Physician Last documented on 10/29/2024; 11:13 AM, Qasim Lares PA-C; [facility] Active Problems & Conditions - Joint Pain in the Left Knee - Lower Back Pain - Neck Pain Chief Complaint The Chief Complaint is: NECK AND MID BACK PAIN. Referred Here Referred by self. History of Present Illness Daisy Pleitez is a 54 year old female. - [...] refills - [facility] Vitamin D3 250 MCG (24847 UT) Oral Capsule use as directed 0 [...] performed. Care Team - MELANI PRINCE - AMBULATORY SERVICE REPRESENTATIVE
--- OUTSIDE RECORDS SUMMARY | 2024-12-31 19:44 | XMS_ITS | Clinical Summary ---
Author Organization [facility] , [facility] Address [address] [place] [address] Phone Care Team Providers Care Scaffold Worker Name Role Phone Brenton PEOPLES, Rafael Encarnacion Unavailable [phone] MELANI PRINCE Primary Care Provider [phone] Reason for Visit and Chief Complaint The Chief Complaint is: left knee pain Problems Includes: Problems addressed during this encounter and other active Problems Current Visit Onset Date Resolved Date Provider Conditio n Status Lower Back Pain 10/29/2024 Qasim gonzalez PA-C Active Last Documented On 5 11:09AM ; [facility], [facility] Past Visits Onset Date Resolved Date Provider Condition Status Neck Pain 10/29/2024 Qasim Henderson Active Last Documented On 5 11:09AM ; [facility], [facility] Joint Pain in the Left Knee 12/30/2020 Tomer Castillo MD Active Last Documented On 1 8:35AM ; [facility], [facility] Plan of Treatment Pending Tests Order Diagnosis Results Due Ordering Shashank campbell Radiology - MRI MRI L Knee 07/14/21 Rafael Blair MD Last Documented On 1 1:16PM ; [facility], [facility] Instructions to patient Lose weight Last Documented On 2 11:01AM ; [facility], [facility] Assessments Includes: Assessments from this encounter [...] - Last Documented On 12/13/2021 8:30AM ; [facility], [facility] 12/05/2021 patient is back for an [...] - Last Documented On 12/13/2021 8:30AM ; [facility], [facility] 12/12/21- patients presenting for follow-up evaluation. [...] - Last Documented On 12/13/2021 8:30AM ; [facility], [facility] Physical exam: - Last Documented On 12/13/2021 8:30AM ; [facility], [facility] CONSTITUTIONAL: Well developed, well groomed, well nourished patient in no acute distress who appears stated age, height and weight. - Last Documented On 12/13/2021 8:30AM ; [facility], [facility] PSYCHIATRIC: The patient is alert and oriented to person, place, date and situation. Mood and affect are normal for current situation. - Last Documented On 12/13/2021 8:30AM ; [facility], [facility] NEUROLOGICAL: Sensation normal bilateral upper and lower extremities. - Last Documented On 12/13/2021 8:30AM ; [facility], [facility] LYMPHATIC: No pitting edema noted in the lower extremities. - Last Documented On 12/13/2021 8:30AM ; [facility] SKIN: No lesions noted on upper or lower extremities. Skin is dry, warm and with normal turgor. - Last Documented On 12/13/2021 8:30AM ; [facility] VASCULAR: No swelling in upper or lower extremities other than described below in extremity exam. Dorsalis Pedis Pulses normal in lower extremities. - Last Documented On 12/13/2021 8:30AM ; [facility] GAIT AND STATION: antalgic gait without assistive devices. Station normal. - Last Documented On 12/13/2021 8:30AM ; [facility], [facility] LEFT KNEE: No Deformity. No discoloration. [...] - Last Documented On 12/13/2021 8:30AM ; [facility] Sensation intact in the saphenous, sural, deep peroneal, superficial peroneal, and tibial distribution. Able to fire EHL, FHL, gastroc, soleus, peroneals, and tibialis anterior. Warm and well-perfused distally with 2+ dorsalis pedis pulse. - Last Documented On 12/13/2021 8:30AM ; [facility] RIGHT KNEE: No Deformity. Normal Q [...] - Last Documented On 12/13/2021 8:30AM ; [facility] Assessment and plan: - Last Documented On 12/13/2021 8:30AM ; [facility] 51-year-old female has had a [...] - Last Documented On 12/13/2021 8:30AM ; [facility] After sterile prep with alcohol, using sterile technique and anterior-lateral approach, 8 cc of marcaine & 40 mg of Kenalog was injected intra-articularly to the left knee. Hemostasis was obtained and the injection site was dressed. Patient tolerated the procedure without issues. Will ice for 10-15 minutes once or twice later today. - Last Documented On 12/13/2021 8:30AM ; [facility] 51-year-old female visiting for second postoperative [...] - Last Documented On 12/13/2021 8:30AM ; [facility] 12/05/2021 patient is back for an [...] - Last Documented On 12/13/2021 8:30AM ; [facility], [facility] Physical exam: - Last Documented On 12/13/2021 8:30AM ; [facility], [facility] Well-appearing in no acute distress. - Last Documented On 12/13/2021 8:30AM ; [facility], [facility] Evaluation of the left lower extremity: [...] - Last Documented On 12/13/2021 8:30AM ; [facility], [facility] Assessment and plan: - Last Documented On 12/13/2021 8:30AM ; [facility], [facility] 51-year-old female has had a [...] - Last Documented On 12/13/2021 8:30AM ; [facility], [facility] Instructions Includes: Instructions from this encounter Instructions to patient Lose weight Last Documented On 2 11:01AM ; [facility] Medical Equipment - Implanted Devices Includes: Current Devices No Medical Equipment Recorded Medications Includes: Medications discussed during this encounter and other current Medications Current Medications (continue as prescribed) Hyoscyamine Sulfate 0.125 MG Sublingual Tablet Subling ual 11/29/2021 Provider: Diagnosis: Last Documented On 2 1:44PM By Kadie Ovalle ; [facility] Ondansetron 4 MG Oral Tablet Disintegrating 11/29/2021 Provider: Diagnosis: Last Documented On 2 1:44PM By Kadie Ovalle ; [facility] Vitamin D3 250 MCG (88646 UT) Oral Capsule 022 Provider: Diagnosis: Last Documented On 2 2:35PM By Kadie Ovalle ; [facility] B Complex-B12 Oral Tablet 11/24/2021 Provider: Diagnosis: Last Documented On 2 2:35PM By Kadie Ovalle ; [facility] Past Medications on file Contrave 8-90 MG Oral Tablet Extended Release 12 Hour 11/24/2021 - 12/24/2021 Provider: Diagnosis: Last Documented On 2 2:35PM By Kadie Ovalle ; [facility] Aspirin EC 81 MG Oral Tablet Delayed Release 08/09/2021 - 08/23/2021 Provider: Rafael Farris MD Diagnosis: once a day Last Documented On 1 7:09PM By Rafael Farris M.D. ; [facility] Zofran 4 MG Oral Tablet 08/09/2021 - 08/21/2021 Provid er: Rafael Farris MD Diagnosis: 1 tablet every 6-8 hrs for post op nausea Last Documented On 7:08PM By Rafael Farris M.D. ; [facility] oxyCODONE HCl 5 MG Oral Tablet 08/09/2021 - 08/12/2021 Provider: Rafael Farris MD Diagnosis: 1-2 tablets by mouth every 4-6 hrs for post op p ain Last Documented On 1 7:10PM By Rafael Farris M.D. ; [facility], [facility] oxyCODONE HCl 5 MG Oral Tablet 03/03/2021 - 03/06/2021 Provider: Rafael Farris MD Diagnosis: 1-2 po q 4-6h 1-2 tablets every 4-6hrs for post op pain Last Documented On 1 5:38PM By Rafael Farris M.D. ; [facility], [facility] Zofran 4 MG Oral Tablet 03/01/2021 - 03/13/2021 Provid er: Rafael Farris MD Diagnosis: 1 tablet every 6-8 hrs for post op nausea Last Documented On 1 9:21AM By Lianne Gamboa ; [facility], [facility] Phenergan 25 MG RE SUPP 06/01/2008 - 06/06/2008 Provid er: Bari Ambriz MD Diagnosis: cb [phone] Last Documented On 8 1:35PM By Marylu Rendon ; [facility], [facility] Percocet 5-325 MG OR TABS 05/26/2008 - 05/31/2008 Prov ider: Bari Ambriz MD Diagnosis: cb Last Documented On 8 9:13AM By Marylu Rendon ; [facility], [facility] Medications Administered Includes: Administered Medications from this encounter No Administered Medications Recorded Vital Signs Includes: Vital Signs from this encounter Vital Name 12/12/2021 11:04A Blood Pressure Sitting (mmHg) 114/87 Pulse Rate-Sitting (bpm) 87 Height (in) 65 Weight (lb) 175 Body Mass Index (kg/m2) 29.1 Body Surface Area (m2) 1.9 Note: aes Last Documented: On 12/12/2021 11:05A M ; [facility], [facility] Results Includes: Results discussed during this [...] 11/24/2021 Last Documented On 2 11:00AM ; [facility], [facility] Non-smoker 12/30/2020 Last Documented On 2 11:00AM ; [facility], [facility] Caffeine use 12/30/2020 Last Documented On 2 11:00AM ; [facility], [facility] No recent change in diet 12/30/2020 Last Documented On 2 11:00AM ; [facility] Not a current smoker. 12/30/2020 Last Documented On 2 11:00AM ; [facility] Not exercising regularly 12/30/2020 Last Documented On 2 11:00AM ; [facility], [facility] Not using alcohol 12/30/2020 Last Documented On 2 11:00AM ; [facility], [facility] Not using drugs 12/30/2020 Last Documented On 2 11:00AM ; [facility], [facility] Smoking Status Unknown Procedures and Surgical History Includes: Procedures from this encounter Procedures Code Diagnosis Performing Provider Service L ocation Service Date use of tobacco assessment performed 1000F Last Documented On 2 11:01AM ; [facility] no influenza immunization patient refuse d Last Documented On 2 11:01AM ; [facility], [facility] Medical History Includes: Medical History addressed during this encounter Description Last Updated Heartburn / Acid Reflux 12/30/2020 Last Documented On 2 11:00AM ; [facility], [facility] Hypertension 12/30/2020 Last Documented On 2 11:00AM ; [facility], [facility] Hysterectomy 12/30/2020 Last Documented On 2 11:00AM ; [facility], [facility] No recent immunization for flu 1 Last Documented On 2 11:00AM ; [facility], [facility] No recent immunization for pneumococcal pneumonia 12/30/2020 Last Documented On 2 11:00AM ; [facility], [facility] Past Surgical History: trigger thumb rel ease, elbow deprivement 12/30/2020 Last Documented On 2 11:00AM ; [facility], [facility] Family History Includes: Family History addressed during this encounter Description Last Updated Diabetes mellitus 12/30/2020 Last Documented On 2 11:00AM ; [facility], [facility] Family history of cancer 12/30/2020 Last Documented On 2 11:00AM ; [facility] Family history of heart disease 12/31/19 21 Last Documented On 2 11:00AM ; [facility] Family history of osteoporosis 1 Last Documented On 2 11:00AM ; [facility], [facility] Family history of rheumatoid arthritis 0 12/30/2020 Last Documented On 2 11:00AM ; [facility] Family history of thromboembolic disease 12/30/2020 Last Documented On 2 11:00AM ; [facility] Stroke / Seizures 12/30/2020 Last Documented On 2 11:00AM ; [facility], [facility] Review of Systems Includes: Review [...] Time Diagnosis Follow Up Rafael Farris MD [facility] 2 10:10AM 12:12PM Insurance Includes: Active Insurance Policies Plan Name Member ID Group # Subscriber Relationship Effect whitney Dates 1 - [facility] [id number] MELANI PLEITEZ K 09/23/2020 - Unknown Clinical Notes Includes: Clinical Notes from this encounter No Clinical Notes Recorded
--- OUTSIDE RECORDS SUMMARY | 2024-12-31 19:44 | XMS_ITS | Clinical Summary ---
Author Organization [facility] , [facility] Address [address] [place] [address] Phone Care Team Providers Care Aromatherapist Name Role Phone Brenton PEOPLES, Rafael Encarnacion Unavailable [phone] MELANI PRINCE Primary Care Provider [phone] Reason for Visit and Chief Complaint The Chief Complaint is: NECK AND MID BACK PAIN Problems Includes: Problems addressed during this encounter and other active Problems Current Visit Onset Date Resolved Date Provider Conditio n Status Lower Back Pain 10/29/2024 Qasim gonzalez PA-C Active Last Documented On 5 11:09AM ; [facility], [facility] Past Visits Onset Date Resolved Date Provider Condition Status Neck Pain 10/29/2024 Qasim Henderson Active Last Documented On 5 11:09AM ; [facility], [facility] Joint Pain in the Left Knee 12/30/2020 Tomer Castillo MD Active Last Documented On 1 8:35AM ; [facility], [facility] Plan of Treatment Instructions to patient Lose weight Last Documented On 5 1:07PM ; [facility], [facility] Assessments Includes: Assessments from this encounter Findings - Overweight - Last Documented On 12/08/2024 8:57AM ; [facility], [facility] Instructions Includes: Instructions from this encounter Instructions to patient Lose weight Last Documented On 5 1:07PM ; [facility], [facility] Medical Equipment - Implanted Devices Includes: Current Devices No Medical Equipment Recorded Medications Includes: Medications discussed during this encounter and other current Medications Current Medications (continue as prescribed) Hyoscyamine Sulfate 0.125 MG Sublingual Tablet Subling ual 11/29/2021 Provider: Diagnosis: Last Documented On 2 1:44PM By Kadie Ovalle ; [facility], [facility] Ondansetron 4 MG Oral Tablet Disintegrating 11/29/2021 Provider: Diagnosis: Last Documented On 2 1:44PM By Kadie Ovalle ; [facility], [facility] Vitamin D3 250 MCG (47741 UT) Oral Capsule 022 Provider: Diagnosis: Last Documented On 2 2:35PM By Kadie Ovalle ; [facility], [facility] B Complex-B12 Oral Tablet 11/24/2021 Provider: Diagnosis: Last Documented On 2 2:35PM By Kadie Ovalle ; [facility], [facility] Past Medications on file Contrave 8-90 MG Oral Tablet Extended Release 12 Hour 11/24/2021 - 12/24/2021 Provider: Diagnosis: Last Documented On 2 2:35PM By Kadie Ovalle ; [facility], [facility] Aspirin EC 81 MG Oral Tablet Delayed Release 08/09/2021 - 08/23/2021 Provider: Rafael Farris MD Diagnosis: once a day Last Documented On 1 7:09PM By Rafael Farris M.D. ; [facility] Zofran 4 MG Oral Tablet 08/09/2021 - 08/21/2021 Provid er: Rafael Farris MD Diagnosis: 1 tablet every 6-8 hrs for post op nausea Last Documented On 1 7:08PM By Rafael Farris M.D. ; [facility] oxyCODONE HCl 5 MG Oral Tablet 08/09/2021 - 08/12/2021 Provider: Rafael Farris MD Diagnosis: 1-2 tablets by mouth every 4-6 hrs for post op p ain Last Documented On 1 7:10PM By Rafael Farris M.D. ; [facility] oxyCODONE HCl 5 MG Oral Tablet 03/03/2021 - 03/06/2021 Provider: Rafael Farris MD Diagnosis: 1-2 po q 4-6h 1-2 tablets every 4-6hrs for post op pain Last Documented On 1 5:38PM By Rafael Farris M.D. ; [facility], [facility] Zofran 4 MG Oral Tablet 03/01/2021 - 03/13/2021 Provid er: Rafael Farris MD Diagnosis: 1 tablet every 6-8 hrs for post op nausea Last Documented On 1 9:21AM By Lianne Gamboa ; [facility], [facility] Phenergan 25 MG RE SUPP 06/01/2008 - 06/06/2008 Provid er: Bari Ambriz MD Diagnosis: cb [phone] Last Documented On 8 1:35PM By Marylu Rendon ; [facility] Percocet 5-325 MG OR TABS 05/26/2008 - 05/31/2008 Prov ider: Bari Ambriz MD Diagnosis: cb Last Documented On 8 9:13AM By Marylu Rendon ; [facility] Medications Administered Includes: Administered Medications from this encounter No Administered Medications Recorded Vital Signs Includes: Vital Signs from this encounter Vital Name 12/03/2024 01:22P Height (in) 65 Weight (lb) 197 Body Mass Index 32.8 Body Surface Area 2 Pain Level 3 Last Documented: On 12/03/2024 1:22PM ; [facility], [facility] Results Includes: Results discussed during this encounter No Results Recorded For Specified Dates History of Present Illness Includes: History of Present Illness from this encounter SHAILESH Pleitez is a 54 year old female. - Allergy list reviewed - Problem list reviewed - Medication list reviewed - - Review of medications documented Social History Description Last Updated No recent change in diet 01/23/2022 Last Documented On 5 1:07PM ; [facility], [facility] Not a current smoker. 11/24/2021 Last Documented On 5 1:07PM ; [facility], [facility] Non-smoker 12/30/2020 Last Documented On 5 1:07PM ; [facility], [facility] Caffeine use 12/30/2020 Last Documented On 5 1:07PM ; [facility], [facility] Not exercising regularly 12/30/2020 Last Documented On 5 1:07PM ; [facility], [facility] Not using alcohol 12/30/2020 Last Documented On 5 1:07PM ; [facility], [facility] Not using drugs 12/30/2020 Last Documented On 5 1:07PM ; [facility], [facility] Smoking Status Unknown Procedures and Surgical History Includes: Procedures from this encounter Procedures Code Diagnosis Performing Provider Service L ocation Service Date use of tobacco assessment performed 1000F Last Documented On 5 1:07PM ; [facility], [facility] Surgical History Last Updated Past Surgical History: Elbow and meniscu s repair 12/08/2024 Last Documented On 5 8:57AM ; [facility], [facility] Medical History Includes: Medical History addressed during this encounter Description Last Updated History of Heartburn / Acid Reflux 12/08 Last Documented On 5 8:57AM ; [facility], [facility] History of Hypertension 12/08/2024 Last Documented On 5 8:57AM ; [facility], [facility] Heartburn / Acid Reflux 12/30/2020 Last Documented On 5 1:07PM ; [facility], [facility] Hypertension 12/30/2020 Last Documented On 5 1:07PM ; [facility], [facility] Family History Includes: Family History addressed during this encounter Description Last Updated Family history of systemic hypertension 01/23/2022 Last Documented On 5 1:07PM ; [facility], [facility] Diabetes mellitus 12/30/2020 Last Documented On 5 1:07PM ; [facility], [facility] Family history of cancer 12/30/2020 Last Documented On 5 1:07PM ; [facility], [facility] Family history of heart disease 12/31/19 21 Last Documented On 5 1:07PM ; [facility], [facility] Family history of osteoporosis Last Documented On 5 1:07PM ; [facility], [facility] Family history of rheumatoid arthritis 0 12/30/2020 Last Documented On 5 1:07PM ; [facility] Family history of thromboembolic disease 12/30/2020 Last Documented On 5 1:07PM ; [facility] Stroke / Seizures 12/30/2020 Last Documented On 5 1:07PM ; [facility] Review of Systems Includes: Review of Systems from this encounter Systemic: Not feeling tired and no recent [...] Time Diagnosis Follow Up [facility]:05[facility] 1:35PM Overweight Insurance Includes: Active Insurance Policies Plan Name Member ID Group # Subscriber Relationship Effect whitney Dates 1 - [facility] [id number] MELANI PLEITEZ K 09/23/2020 - Unknown Clinical Notes Includes: Clinical Notes from this encounter * Progress note Date Encounter Last Documented by 12/03/2024 Follow Up Last documented on 12/08/2024; 8:57 AM, Ricky Enciso MD; [facility], [facility] Active Problems & Conditions - Joint [...] refills - [facility] Vitamin D3 250 MCG (97088 UT) Oral Capsule use as directed 0 [...] performed. Care Team - MELANI PRINCE - ADJUNCT BUSINESS INSTRUCTOR Health Reminders - Assess BMI satisfied 12/03/2024. - Assess Tobacco Use satisfied 12/03/2024. - Follow Up Plan BMI Management satisfied 12/03/2024.
== END 2024-12-25 23:59 | disposition home or self-care (01) ==
LOC: LAB 16:03
PROVIDERS: PCP Physician Assistant; Visit Provider Internal Medicine Rheumatology
DX: M05.79 Rheumatoid arthritis with rheumatoid factor of multiple sites without organ or systems involvement (principal); Z51.81 Encounter for therapeutic drug level monitoring
CPT/HCPCS: 36415; 80053; 85025; 85651; 86140

== ENCOUNTER 2025-04-01 14:06 | Outpatient (CLI) | payer BC, SELFPAY ==
--- OUTSIDE RECORDS SUMMARY | 2025-03-23 10:30 | XMS_ITS | Encounter Summary ---
Author Organization [facility] Address [address] [place] [address] Care Team Providers Care Fish Protector Name Role Phone Kashif Fitch MD Primary Care Provider [phone] Reason for Referral * Consultation (Routine) - Authorized Specialty Diagnoses / Procedures Referred By Vinod graham Referred To Contact Physical Therapy Diagnoses Left shoulder pain, unspecified chronicity Beena Mcclain APRN [address] [address] Phone: tel: fax: Referral ID Status Reason Start Date Expiration Date Visits Requested Visits Authorized [id number] Authorized Consult and Treat 03/23/2025 09/22/2026 1 1 Reason for Visit * Reason Comments Follow-up Encounter Details Date Type Department Care Team (Late st Contact Info) Description 03/23/2025 10:30 AM EDT Office Visit [facility] Orthopaedic Surgery & Sports Medicine [address], [address] [place] [address] Beena Mcclain APRN [address] [facility] [address] [place] [address] Left shoulder pain, unspecified chronicity (Primary Dx) Social History Tobacco Use Types Packs/Day Years Used Date Smoking Tobacco: Never Smokeless Tobacco: Never Comments Unknown Sex and Gender Information Value Date Recorded Sex Assigned at Not on file Legal Sex Female 8:02 PM EDT Gender Identity Not on file Sexual Orientation Not on file documented as of this encounter Last Filed Vital Signs Vital Sign Reading Time Taken Comments Blood Pressure 122/75 03/23/2025 10:13 AM EDT Pulse - - Temperature - - Respiratory Rate - - Oxygen Saturation - - Inhaled Oxygen Concentration - - Weight 78 kg (172 lb) 03/23/2025 10:13 AM EDT Height 165.1 cm (5' 5 ) 03/23/2025 10:13 AM EDT Body Mass Index 28.62 03/23/2025 10:13 AM EDT documented in this encounter Miscellaneous Notes * Progress Notes - Beena Mcclain, VIDEO COORDINATOR - 03/23/2025 10:30 AM EDT Clinic Note Encounter Date: 03/23/2025 Subjective: Chief Complaint: Left shoulder pain History of Present Illness: Mrs Pleitez presents today for follow-up left shoulder pain secondary to adhesive capsulitus. Shereceived a glenohumeral injection on 01/26/2025. She states the injection did help with her shoulder pain but she did not notice an increase in motion like she did with her right shoulder. She has beenattending physical therapy and states that has helped the motion in forward flexion but abduction remains the same. Patient has a history of adhesive capsulitis in the right. Problem List does not have a problem list on file. Medications Patient's Medications New Prescriptions No medications on file Previous Medications ATORVASTATIN (LIPITOR) 10 MG TABLET Take 1 tablet (10 mg) by mouth. FOLIC ACID (FOLVITE) 1 MG TABLET Take 1 tablet by mouth daily. METHOTREXATE 2.5 MG TABLET Take 6 tablets (15 mg total) by mouth 1 time per week. SUTAB [id number] MG TABLET TAKE 12 TABLETS BY MOUTH AT 5 PM AND AT 10 PM WEGOVY 1.7 MG/0.75ML SOLUTION AUTO-INJECTOR INJECT CONTENTS OF 1 PEN-INJECTOR SUBCUTANEOUSLY ONCE AWEEK Modified Medications No medications on file Discontinued Medications No medications on file Surgical History Surgical History[1] Allergies Allergies[2] Objective: Visit Vitals BP 122/75 Ht 1.651 m (5' 5 ) Wt 78 kg (172 lb) BMI 28.62 kg/m?? Smoking Status Never BSA 1.89 m?? GEN: Alert, cooperative, in no acute distress MSK: Left SHOULDER EXAM There is no cervical tenderness and negative Spurling's. No obvious atrophy or deformity. No scapular dyskinesia. Patient has tenderness about the anterolateral shoulder. Active elevation is 150??, external rotation at the side 40??, internal rotation to back pocket, ABD to 70. Passive range of motion same as active. There is pain with elevation and resisted strength testing. There is pain with resisted external rotation. There is moderate weakness to supraspinatus testing, mild weakness to external rotation. Lift-off test is normal. The patient has a painful arc of abduction and positive impingement signs. There is a negative speed's test and negative Yergason's test. There is no significant pain with cross-arm adduction. No signs of instability or apprehension. Distal neurovascular examis normal. The patient has a warm and well-perfused upper extremity with capillary refill less than 2 seconds.Sensation is intact to light touch in terminal nerve distributions. The patient has no palpable epitrochlear lymphadenopathy. Imaging: X-Rays: Radiographs of the left shoulder obtained today in three views which demonstrates preserved glenohumeral and acromioclavicular joint space with humeral head aligned at the glenoid Assessment/Plan Daisy is a 54-year-old female seen today with for follow-up left shoulder pain secondary to adhesive capsulitis. She has had some improvement of symptoms today after an ultrasound-guided glenohumeraljoint injection just over 2 months ago. Overall she has had good improvements with both pain and range of motion. She still does note limitations with range of motion and pain with adduction motions. Will prescribe a Medrol Dosepak today for her pain. We will plan to see her back in 3 weeks at which point she will be 3 months from her last injection. We can repeat a left ultrasound-guided glenohumeral joint injection at that time. Patient was agreeable with the plan. Electronically Signed by: Beena Mcclain APRN - 03/23/2025 - 11:41 AM [1] Past Surgical History: Procedure Laterality Date ELBOW SURGERY 08/27/2023 HAND SURGERY HYSTERECTOMY 2009 KNEE SURGERY [2] Allergies Allergen Reactions Guaifenesin Swelling documented in this encounter Plan of Treatment Upcoming Encounters Date Type Department Care Team (Late st Contact Info) Description 05/03/2025 9:20 AM EDT Procedure Visit [facility] Orthopaedic Surgery & Sports Medicine [address] [facility], [address] [place] [address] Beena Mcclain APRN [address] [facility] [address] [place] [address] Scheduled Referrals Name Type Priority Associated Diagnoses Orde r Schedule Physical Therapy (outgoing) Outpatient Referral Routine Left shoulder pain, unspecified chronicity 1 Occurrences starting 03/23/2025 until 09/24/2026 documented as of this encounter Visit Diagnoses Diagnosis Left shoulder pain, unspecified chronicity- Primary documented in this encounter Additional Health Concerns Assessment Noted Time A fall risk assessment has been complete d for the patient 03/23/2025 10:13 AM EDT A Body Mass Index follow-up plan has been documented for the patient 03/24/2025 6:36 PM EDT documented as of this encounter Care Teams Fish Protector Relationship Specialty Start Date End Date Kashif Fitch MD [address] [place] [address] PCP - General 02/03/21 03/24/25 documented as of this encounter
--- OUTSIDE RECORDS SUMMARY | 2025-04-01 14:20 | XMS_ITS | Encounter Summary ---
Author Organization [facility] Address [address] [place] [address] Care Team Providers Care Marriage And Family Teacher Name Role Phone Kashif Fitch MD Primary Care Provider [phone] Encounter Details Date Type Department Care Team (Latest Contact Info) Description 03/23/2025 Travel Social History Tobacco Use Types Packs/Day Years Used Date Smoking Tobacco: Never Smokeless Tobacco: Never Comments Unknown Sex and Gender Information Value Date Recorded Sex Assigned at Not on file Legal Sex Female 8:02 PM EDT Gender Identity Not on file Sexual Orientation Not on file documented as of this encounter Plan of Treatment Upcoming Encounters Date Type Department Care Team (Late st Contact Info) Description 05/03/2025 9:20 AM EDT Procedure Visit [facility] Orthopaedic Surgery & Sports Medicine [address] [facility], [address] [place] [address] Beena Mcclain, NURSE SEXUAL ASSAULT [address] [facility] [address] [place] [address] documented as of this encounter Visit Diagnoses Not on filedocumented in this encounter Additional Health Concerns Assessment Noted Time A fall risk assessment has been complete d for the patient 03/23/2025 10:13 AM EDT A Body Mass Index follow-up plan has been documented for the patient 03/24/2025 6:36 PM EDT documented as of this encounter Care Teams Marriage And Family Teacher Relationship Specialty Start Date End Date Kashif Fitch MD [address] [place] [id number] PCP - General 02/03/21 03/24/25 documented as of this encounter
--- OUTSIDE RECORDS SUMMARY | 2025-04-01 14:20 | XMS_ITS | Clinical Summary ---
Author Organization [facility] Address [address] [place] [address] Care Team Providers Care Resident Care Associate Name Role Phone Jaimee Drake Primary Care Provider [phone] Allergies Active Allergy Reactions Criticality Noted Date Comments Guaifenesin Swelling High 10/16/2022 Medications Sutab [id number] MG tablet TAKE 12 TABLETS BY MOUTH AT 5 PM AND AT 10 PM Active atorvastatin (Lipitor) 10 MG tablet Take 1 tablet (10 mg) by mouth. 12/13/19 24 Active folic acid (Folvite) 1 MG tablet Take 1 tablet by mouth daily. 01/17/20 25 Active methotrexate 2.5 MG tablet Take 6 tablets (15 mg total) by mouth 1 time per week. 01/15/20 25 Active Wegovy 1.7 MG/0.75ML solution auto-injector INJECT CONTENTS OF 1 PEN-INJECTOR SUBCUTANEOUSLY ONCE A WEEK 02/24/20 25 Active methylPREDNISol one (Medrol Dospak) 4 MG tabletsIndicati ons:Left shoulder pain, unspecified chronicity Follow schedule on package instructions 21 tablet 03/24/20 25 Active Encounters Date Type Department Care Team Description 03/24/2025 Telephone [facility] Orthopaedic Surgery & Sports Medicine [address] [place] [address] Beena Mcclain APRN HCN Clinical Concern/Question 03/23/2025 10:30 AM EDT Office Visit [facility] Orthopaedic Surgery & Sports Medicine [address] [place] [address] Beena Mcclain, SEGUN Left shoulder pain, unspecified chronicity (Primary Dx) 03/23/2025 Travel 01/26/2025 9:30 AM EDT Office Visit [facility] Orthopaedic Surgery & Sports Medicine [address] [facility], [address] [place] [address] Beena Mcclain, SEGUN Adhesive capsulitis of right shoulder (Primary Dx); Left shoulder pain, unspecified chronicity 01/26/2025 9:21 AM EDT - 01/26/2025 11:59 PM EDT Hospital Encounter [facility] X-Ray [address] [facility], [address] [place] [address] Left shoulder pain, unspecified chronicity Discharge Disposition: Home or Self Care 01/26/2025 Travel 01/23/2025 Orders Only External Location [address] [place] [address] Provider, External from Last 3 Months Social History Tobacco Use Types Packs/Day Years Used Date Smoking Tobacco: Never Smokeless Tobacco: Never Tobacco Cessation:Counseling Given: Not Answered Comments Unknown Sex and Gender Information Value Date Recorded Sex Assigned at Not on file Legal Sex Female 8:02 PM EDT Gender Identity Not on file Sexual Orientation Not on file Last Filed Vital Signs Vital Sign Reading Time Taken Comments Blood Pressure 122/75 03/23/2025 10:13 AM EDT Pulse 73 12/23/2023 8:46 AM EDT Temperature - - Respiratory Rate - - Oxygen Saturation 99% 12/23/2023 8:46 AM EDT Inhaled Oxygen Concentration - - Weight 78 kg (172 lb) 03/23/2025 10:13 AM EDT Height 165.1 cm (5' 5 ) 03/23/2025 10:13 AM EDT Body Mass Index 28.62 03/23/2025 10:13 AM EDT Plan of Treatment Upcoming Encounters Date Type Department Care Team (Late st Contact Info) Description 05/03/2025 9:20 AM EDT Procedure Visit [facility] Orthopaedic Surgery & Sports Medicine [address] [facility], [address] [place] [address] Beena Mcclain APRN [address] [facility] [address] [place] [address] Health Maintenance Due Date Last Done Comments [facility]-Depression Screening 1970 [facility]-HIV Screening 1970 [facility]-Hepatitis C Screening 1970 [facility]-/Child/Adol SDOH Screenings 1970 [facility]- SDOH Screenings 1989 [facility]-Adult SDOH Screenings 1989 [facility]-Hepatitis B Vaccines (1 of 3 - 19+ 3-dose series) 1990 [facility]-Zoster Vaccines (1 of 2) 1990 CT Colonography 2016 Colonoscopy 2016 FIT-DNA 2016 FIT 2016 FOBT 2016 Sigmoidoscopy 2016 [facility]-Colorectal Cancer Screening 2016 [facility]-Pneumococcal Vaccine: 50+ Years (1 of 1 - PCV) 2021 [facility]YB-SHSRS-71 Vaccine (4 - 2023- season) 2024 08/22/2021, 01/02/2021, 12/12/2020 [facility]-Influenza Vaccine (#1) 2025 07/16/2018 [facility]-Breast Cancer Screening 10/14/2025 10/14/2023, 0 10/14/2023 [facility]-DTaP,Tdap,and Td Vaccines (2 - Td or Tdap) 09/19/2032 09/19/2022 [facility]-Hepatitis A Vaccines Aged Out 02/05/2019, 12/23 No longer eligible based on patient's age to complete this topic [facility]-Diabetes: Hemoglobin A1C Discontinued 07/25/2023 [facility]-Obesity Intervention Completed 025, 01/26/2025, 12/23/2023, Additional history exists HPV Vaccines Aged Out No longer eligi ble based on patient's age to complete this topic [facility]-HIB Vaccines Aged Out No longer e ligible based on patient's age to complete this topic [facility]-IPV Vaccines Aged Out No longer e ligible based on patient's age to complete this topic [facility]-Rotavirus Vaccines Aged Out No lo nger eligible based on patient's age to complete this topic Procedures Procedure Name Priority Date/Time Associated Diagnosis Comments AZ ARTHROCENTESIS ASPIR&/INJ MAJOR JT/BURSA W/US Routine 01/26/2025 10:36 AM EDT Adhesive capsulitis of right shoulder XR SHOULDER LEFT 2+ VIEWS Routine 01/26/2025 9:28 AM EDT Left shoulder pain, unspecified chronicity POC ULTRASOUND 01/23/2025 from Last 3 Months Results * AZ ARTHROCENTESIS ASPIR&/INJ MAJOR JT/BURSA W/US (01/26/2025 10:36 AM EDT) Narrative Beena Mcclain APRN - 01/26/2025 10:36 AM EDT Beena Mccalin APRN 02/01/2025 11:58 AM Injection - Large Joint: L glenohumeral on 01/26/2025 10:36 AM Details: 25 G needle, ultrasound-guided posterior approach Medications: 50 mg lidocaine 1 %; 2 mL ropivacaine 5 MG/ML; 40 mg Kenalog-40 40 MG/ML Outcome: tolerated well, no immediate complications US Guided Procedure Note: Indication: Osteoarthritis Procedure: Sonographically guided left glenohumeral joint corticosteroid injection Informed Consent: Following denial of allergy and review of potential side effects and complications including, but not limited to, infection, allergic reaction, local tissue breakdown, systemic effects of corticosteroids, elevation of blood glucose, injury to soft tissue and/or nerves and seizure, the patient indicated understanding and agreed to proceed. Procedural pause conducted to verify: correct patient identity, procedure to be performed and, as applicable, correct side and site, correct patient position, availability of any special equipment or other special requirements. Justification for use of ultrasound guidance: The use of direct sonographic visualization of the needle (rather than a non-guided injection) was required to ensure accurate injection placement for diagnostic specificity, to maximize clinical efficacy and for safety purposes to minimize risk of bleeding or injury to nearby neurovascular structures. Technique: The procedure was carried out under sterile technique utilizing a sterile ultrasound transducer cover and sterile ultrasound gel. Pre-procedural scanning was performed to determine optimal needle approach for the procedure. The patient was prepped and draped in the usual sterile fashion. Patient position: lateral decubitus Approach: in plane Local anesthesia: 5 mL 1% Lidocaine Aspiration/Injection: Live sonographic guidance with a 5-1 mHz curvilinear array transducer was used throughout the procedure. A 25g 2 inch needle was used for local anesthesia and was guided into the glenohumeral joint. With the needle in place, syringes were exchanged. After reconfirmation of needle placement, a mixture of 1cc 0.5% Ropivicaine and 1cc 40mg/mL Kenalog was injected into the glenohumeral joint. Post-Procedure Instructions: The patient tolerated the procedure well without complication and was discharged in good condition after a short observation period. The patient was instructed to avoid submerging the procedure site in water for 48-72 hours. The patient was instructed to contact me with any questions pertaining to the procedure and to inform me of the results of the procedure in approximately 7-10 days, as needed. Questions regarding general management should be directed to the patient's referring provider and the patient should keep all previously scheduled follow up appointments. Multiple crook images were saved. Impression: Successful sonographically-guided left glenohumeral joint corticosteroid injection. Procedure, treatment alternatives, risks and benefits explained, specific risks discussed. Consent was given by the patient. Immediately prior to procedure a time out was called to verify the correct patient, procedure, equipment, merchandise support associate and site/side marked as required. Patient was prepped and draped in the usual sterile fashion. us Beena Mcclain APRN IN CLINIC/BEDSIDE ORDERA BLES Final Result * XR Shoulder Left 2+ Views (01/26/2025 9:28 AM EDT) Anatomical Region Laterality Modality Upper Extremities, Shoulder Left Digi ayana Radiography Impressions 01/26/2025 10:35 AM EDT No acute osseous finding. CRITICAL RESULT: No. COMMUNICATION: Per this written report. Drafted by Saundra Lopez MD on 01/26/2025 10:35 AM Final report signed by Saundra Lopez MD on 01/26/2025 10:35 AM Narrative 01/26/2025 10:35 AM EDT CLINICAL INDICATION: pain TECHNIQUE: XR SHOULDER LEFT 2+ VIEWS COMPARISON: None. FINDINGS: No acute fracture or dislocation. The glenohumeral and AC joints are intact. No acute finding in the partially imaged chest. No significant soft tissue swelling. Procedure Note Saundra Lopez MD - 01/26/2025 CLINICAL INDICATION: pain TECHNIQUE: XR SHOULDER LEFT 2+ VIEWS COMPARISON: None. FINDINGS: No acute fracture or dislocation. The glenohumeral and AC joints areintact. No acute finding in the partially imaged chest. No significantsoft tissue swelling. IMPRESSION: No acute osseous finding. CRITICAL RESULT: No. COMMUNICATION: Per this written report. Drafted by Saundra Lopez MD on 01/26/2025 10:35 AM Final report signed by Saundra Lopez MD on 01/26/2025 10:35 AM Beena Mcclain APRN IMG XR PROCEDURES Final Result * POC Imaging (01/23/2025) Anatomical Region Laterality Modality Pelvis Other 01/23/2025 External Provider IMG POINT OF CARE ULTRASOUND F inal Result from Last 3 Months Insurance [facility] Care Teams Resident Care Associate Relationship Specialty Start Date End Date Jaimee Drake PA [address] [place] [address] [facility] - General 03/25/25
--- OUTSIDE RECORDS SUMMARY | 2025-04-01 14:20 | XMS_ITS | Encounter Summary ---
Author Organization [facility] Address [address] [place] [address] Care Team Providers Care Floorworker Distributor Name Role Phone Kashif Fitch MD Primary Care Provider + [phone] Jaimee Drake Primary Care Provider [phone] Reason for Visit * Reason Onset Date Comments HCN Clinical Concern/Question 03/24/2025 Encounter Details Date Type Department Care Team (Late st Contact Info) Description 03/24/2025 Telephone [facility] [address] [facility], [address] [place] [address] Beena Mcclain, INSTRUCTIONAL LEADER [address] [facility] [address] [place] [address] HCN Clinical Concern/Question Social History Tobacco Use Types Packs/Day Years Used Date Smoking Tobacco: Never Smokeless Tobacco: Never Comments Unknown Sex and Gender Information Value Date Recorded Sex Assigned at Not on file Legal Sex Female 8:02 PM EDT Gender Identity Not on file Sexual Orientation Not on file documented as of this encounter Miscellaneous Notes * Telephone Encounter - Nola Nguyen - 03/29/2025 8:38 AM EDT Called and confirmed of appt change * Telephone Encounter - Nola Nguyen - 03/25/2025 8:24 AM EDT LVM - moved appt to 8/11 at 920. Will try get a hold of patient again to confirm relay of this infobefore EOD * Telephone Encounter - Hazel Olivier - 03/24/2025 12:16 PM EDT Clinical Concern/Question Reason for Call: patient is requesting a call back regarding her pharmacy not receiving her steroidpack Best contact number: [phone] (home) Optimal time of day to reach caller: ANYTIME Additional comments/information from caller: None Note: Please do not reply to this message. Follow-up communication and further actions as a result of this message need to be communicated with the patient directly, if the patient is not active onMyChart. If the patient is active on MyChart, they will receive notification of the communication/outcome via MyChart. documented in this encounter Plan of Treatment Upcoming Encounters Date Type Department Care Team (Late st Contact Info) Description 05/03/2025 9:20 AM EDT Procedure Visit [facility] [address] [facility], [address] [place] [address] Beena Mcclain, INSTRUCTIONAL LEADER [address] [facility] [address] [place] [address] documented as of this encounter Visit Diagnoses Not on filedocumented in this encounter Additional Health Concerns Assessment Noted Time A fall risk assessment has been complete d for the patient 03/23/2025 10:13 AM EDT A Body Mass Index follow-up plan has been documented for the patient 03/24/2025 6:36 PM EDT documented as of this encounter Care Teams Floorworker Distributor Relationship Specialty Start Date End Date Kashif Fitch MD [address] [facility] [address] [place] [address] PCP - General 02/03/21 03/24/25 Jaimee Drake PA [address] [place] [address] PCP - General 03/25/25 documented as of this encounter
[2025-04-01 14:57] LABS: Hematocrit 42.6 % (37.0-47.0); Hemoglobin 14.1 g/dL (12.2-16.2); Immature Granulocytes % 0.1 %; Mean Corpuscular HGB Conc 33.1 g/dL (31.8-35.4); Mean Corpuscular Hemoglobin 29.6 pg (27.0-31.2); Mean Corpuscular Volume 89.3 fl (81-99); Nucleated Red Blood Cells % 0 %; Platelet Count 221 K/mm3 (142-424); Red Blood Count 4.77 M/mm3 (4.20-5.40); Red Cell Distribution Width-SD 46.0 fL; White Blood Count 7.9 K/mm3 (4.8-10.8)
[2025-04-01 15:27] LABS: Albumin Level 4.6 g/dl (3.5-5.0); Chloride 101 mmol/L (98-107); Sodium 137 mmol/L (136-145)
[2025-04-01 15:28] LABS: Potassium 3.8 mmoL/L (3.5-5.1)
[2025-04-01 15:30] LABS: Alanine Aminotransferase 22 U/L (12-78); Albumin/Globulin Ratio 1.9 (1.1-1.8); Alkaline Phosphatase 89 U/L (38-126); Anion Gap 13.8 mEq/L (5-15); Aspartate Amino Transferase 25 U/L (14-36); Bilirubin,Total 1.4 mg/dl (0.2-1.3); Blood Urea Nitrogen 13 mg/dl (7-17); Carbon Dioxide 26 mmol/L (22.0-30.0); Creatinine,Serum 0.80 mg/dl (0.52-1.04); Estimated Glomerular Filt Rate 75 ml/min (>60); GFR (African American) 90 ML/MIN (>60); Globulin 2.4 g/dL (1.3-3.2); Total Protein,Serum 7.0 g/dl (6.3-8.2)
[2025-04-01 15:31] LABS: Calcium 9.3 mg/dl (8.4-10.2); Glucose 104 mg/dl (74-100)
[2025-04-01 15:41] LABS: C-Reactive Protein 3.5 mg/L (0-4)
== END 2025-04-01 23:59 | disposition home or self-care (01) ==
LOC: LAB 14:07
PROVIDERS: PCP Physician Assistant; Visit Provider Internal Medicine Rheumatology
DX: M19.90 Unspecified osteoarthritis, unspecified site (principal); M05.79 Rheumatoid arthritis with rheumatoid factor of multiple sites without organ or systems involvement; M54.2 Cervicalgia; M54.50 Low back pain, unspecified; M54.6 Pain in thoracic spine
CPT/HCPCS: 36415; 80053; 85025; 85651; 86140

== ENCOUNTER 2025-09-22 07:34 | Outpatient (CLI) | payer BC, SELFPAY ==
--- OUTSIDE RECORDS SUMMARY | 2024-09-09 05:15 | XMS_ITS ---
[facility] Address [address] [place] [id number] Care Team Providers Care Pharmacognosist Name Role Phone Aydee Kowalski Primary Care Provider Jaimee Drake Unavailable [phone] Allergies Allergen (clinical drug ingredient) Drug/Non Drug Allergy documented on EMR Reaction Allergy Type Onset Date Status guaiFENesin Unknown Drug Allergy Activ e Results Component Value Reference Range Notes Influenza Screen (in house) Reviewed date:09/09/2024 12:41:57 PM Interpretation: Performing Lab: Notes/Report: results Neg CBC Fingerstick (in house) Reviewed date:09/09/2024 12:41:48 PM Interpretation: Performing Lab: Notes/Report: wbc 5.1 3.5 - 10 lym 34.9% 15 - 50 mid 7.4% 2 - 15 gran 57.7% 35 - 80 rbc 4.87 3.5 - 5.5 hgb 14.5 11.5 - 16.5 hct 43.2 35 - 55 mcv 88.7 75 - 100 mch 29.8 25 - 35 mchc 33.5 31 - 38 plat 167 100 - 400 Covid test (in house) Reviewed date:09/09/2024 12:41:38 PM Interpretation: Performing Lab: Notes/Report: Result: Neg REASON FOR VISIT sinus drainage, not sleeping Medications Medication SIG (Take, Route, Frequency, Duration) Notes Start Date End Date Status Vitamin D3 125 MCG (5000 UT) 1 cap(s) orally once a day A ctive Meloxicam 15 MG 1 tablet Orally Once a day; Duration: 30 day(s) Active Bromfed DM 2-30-10 MG/5ML 5-10 mL Orally four times a day, prn 09/09/2024 Active Vital Signs Blood pressure systolic 122 mm Hg 09/09/20 24 Blood pressure diastolic 80 mm Hg 024 Heart Rate 81 /min 09/09/2024 Height 65 in 09/09/2024 Weight 188.2 lbs 09/09/2024 BMI 31.31 kg/m2 09/09/2024 Encounters Encounter Location Date Provider Diagnosis [facility] [address] [place] [id number] 09/09/2024 Jaimee Drake Acute URI J06.9 Assessments Encounter Date Diagnosis (ICD Code) Assessment Notes Treatment Notes Treatment Clinical Notes Section Notes 09/09/2024 Acute URI (ICD-10 - J06.9) Plan Of Treatment Medication Medication Name Sig Start Date Stop Date Notes Bromfed DM 2-30-10 MG/5ML 5-10 mL Orally four times a day, prn 09/09/2024 Next Appt Details Follow Up: prn, Reason: Provider Name:Jaimee Heredia y, 09/29/2025 09:15:00 AM, [address], [place], [id number], Progress Notes * Daisy PLEITEZDOB:[birth year] (55 yo F)Acc No.[id number]:09/09/2024 Progress Notes Patient: Daisy KHAN Provider: PERRY Kerr :1970 A ge:54 Y S ex:Female Date:09/09/2024 Address:[address] [place], [place] [address], RACHEL VIGIL [id number] Pcp:Aydee Kowalski Subjective: * Chief Complaints: * 1 . Sinus drainage, not sleeping. * HPI: E NT/respiratory: The patient is here today with c/o sinus drainage and cough. Pt states she started saturday with drainage and yesterday she started with some clear productive cough. Pt denies any fever. 54 year old female presents with c/o cough. c/o post nasal drainage. Denies : sore throat. D enies : Fever. * ROS: D ERMATOLOGY: no R liliam. n o H robb. G ASTROENTEROLOGY: no N ausea. n o V omiting. n o D iarrhea.? U ROLOGY: no D ifficulty urinating. n o B lood in urine. * Medical History: Arpita Gloria in [place], 12/07/11 CT of head and sinuses normal, RA, Vitamin D deficiency. * Surgical History: P artial vaginal hysterectomy , R Elbow Debrivement December 31, 2017, Right knee meniscus repair march 06, 2021, Right Knee Meniscus Removal Jul, 2021, Left Middle Finger Mass Removal- non malignant Sep 19, 2021. * Hospitalization/Major Diagno stic Procedure: H ER for stepping on a nail , Clinic-fluid on ears, possible inner ear 07/22/14, clinic-strep 11/08. * Family History: F ather: . M other: 70 yrs, heart disease. S iblings: sister with migraines for years. 2 son(s) . . * Social History: C URRENT TOBACCO USE S moking Status: Patient does NOT smoke. C affeine: yes, frequency:pop. Home smoke detector use: yes. Marital Status: . Past smoking status: no. * Medications: T aking Meloxicam 15 MG Tablet 1 tablet Orally Once a day , Taking Vitamin D3 125 MCG (5000 UT) Capsule 1 cap(s) orally once a day , Discontinued oxyBUTYnin Chloride 2.5 MG Tablet 1 tablet Orally Once a day , Discontinued Atorvastatin Calcium 10 MG Tablet 1 tablet Orally Once a day , Discontinued Pantoprazole Sodium 40 MG Tablet Delayed Release 1 tab(s) orally as needed , Discontinued Omeprazole 40 MG Capsule Delayed Release 1 cap(s) orally as needed , Discontinued rOPINIRole HCl 0.25 MG Tablet 1 tab(s) orally At Bed Time , Discontinued Vitamin D (Ergocalciferol) 1.25 MG (46265 UT) Capsule 1 cap(s) orally , Discontinued B-12 1000 MCG Tablet 1 tab(s) orally once a day , Discontinued Ondansetron 4 MG Tablet Disintegrating 1 tab(s) orally 3 times a day, prn , Discontinued Hyoscyamine Sulfate 0.125 MG Tablet 1 tab(s) sublingually every 4 hours, prn for abdominal cramping , Discontinued Contrave 8-90 MG Tablet Extended Release 12 Hour 2 tab(s) orally 2 times a day , Discontinued Metoprolol Succinate ER 25 MG Tablet Extended Release 24 Hour 1 tab(s) orally once a day , Discontinued Celecoxib 200 MG Capsule 1 cap(s) orally once a day , Medication List reviewed and reconciled with the patient * Allergies: g uaiFENesin. Objective: * Vitals: W t:188.2, Temp:97.5, BP:122/80, HR:81, Nurse:CODY, Ht: 65, BMI:31.31. * Examination: E NT/Respiratory: General Appearance: N AD. E ars: a uditory canals normal bilaterally, TM's WNL. N ose : turbinates red, congested. S inuses : non tender bilaterally. O ral cavity : erythema without exudate on pharynx, PND present. N josy : n o cervical lymphadenopathy. H eart : R RR, normal S1 S2, no murmurs. L ungs:?clear to auscultation bilaterally. Assessment: * Assessment: 1. Quirino bishop URI - J06.9 (Primary) Plan: * Treatment: Value Reference Range r esults Neg * Margareth Toussaint 09/09/2024 11 :03:33 AM > , Provider reviewed results while patient in office.Jaimee Drake 09/09/2024 12:41:53 PM > ?LAB: CBC Fingerstick (in house) (Collection Date & Time - 09/09/2024)* Value Reference Range w bc 5.1 3.5 - 10 * l ym 34.9% 15 - 50 * m id 7.4% 2 - 15 * g ran 57.7% 35 - 80 * r bc 4.87 3.5 - 5.5 * h gb 14.5 11.5 - 16.5 * h ct 43.2 35 - 55 * m cv 88.7 75 - 100 * m ch 29.8 25 - 35 * m chc 33.5 31 - 38 * p lat 167 100 - 400 * Margareth Toussaint 09/09/2024 10 :59:36 AM > , Provider reviewed results while patient in office.Jaimee Drake 09/09/2024 12:41:44 PM > ?LAB: Covid test (in house) (Collection Date & Time - 09/09/2024)* Value Reference Range R esult: Neg * Margareth Toussaint 09/09/2024 11 :03:11 AM > , Provider reviewed results while patient in office.Jaimee Drake 09/09/2024 12:41:35 PM > * Procedure Codes: 3 6416 CAPILLARY BLOOD DRAW, 96210 CBC WITH AUTO DIFF, 54957 Flu Test- Nasal Swab, Modifiers: QW , 20921 COVID TEST IN HOUSE, Modifiers: QW * Follow Up: p rn * Images: Billing Information: * Visit Code: 43948 Office Visit, Est Pt., Level 3. * Procedure Codes: 98452 CAPILLARY BLOOD DRAW. 13113 CBC WITH AUTO DIFF. 49671 Flu Test- Nasal Swab. Modifiers: QW 73925 COVID TEST IN HOUSE. Modifiers: QW * Electronic signature of PERRY Michel on 09/23/2025 at 07:37 AM EST Sign off status: Pending * Provider: PERRY Kerr Date: 11/10/2023 Generated for Elis bernardo/Eber/eTransmitting on: 0 09/23/2025 07:37 AM EST History and Physical Notes * HPI (History of Present Illness) Category Sub-Category Detail Notes Category Not es ENT/respiratory sore throat cough Fever post nasal drainage Examination Category Sub-Category Detail Notes Category Not es ENT/Respiratory Oral cavity : erythema without exudate on pharynx, PND present Sinuses : non tender bilateral ly Ears: auditory canals norm al bilaterally, TM's WNL Neck : no cervical lymphade nopathy Heart : RRR, normal S1 S2, n o murmurs Lungs: clear to auscultatio n bilaterally General Appearance: NAD Nose : turbinates red, donal ested
--- OUTSIDE RECORDS SUMMARY | 2024-12-02 04:00 | XMS_ITS ---
[facility] Address [address] [place] [id number] Care Team Providers Care Grails Web Application Developer Name Role Phone Aydee Kowalski Primary Care Provider Jaimee Drake [phone] Allergies Allergen (clinical drug ingredient) Drug/Non Drug Allergy documented on EMR Reaction Allergy Type Onset Date Status guaiFENesin Unknown Drug Allergy Activ e REASON FOR VISIT arthritis meds, Wegovy research Medications Medication SIG (Take, Route, Frequency, Duration) Notes Start Date End Date Status Turmeric - as directed Orally Active Vitamin D3 125 MCG (5000 UT) 1 cap(s) orally once a day A ctive Simponi Aria 50 MG/4ML as directed Intravenous Active Wegovy 0.25 MG/0.5ML 0.25 mg Subcutaneou s once a week 12/02/2024 Active Problems Problem Type SNOMED Code ICD Code Onset Dates Problem Status W/U Status Risk Notes Problem Obese class I (finding) (5062030985975 07) Obesity, class 1 (E66.811) Active confirmed Problem BMI 30+ - obesity (543409677) BMI 32.0-32.9,ad ult (Z68.32) Active confirmed Vital Signs Blood pressure systolic 132 mm Hg 12/03/19 25 Blood pressure diastolic 82 mm Hg 025 Heart Rate 74 /min 12/02/2024 Height 65 in 12/02/2024 Weight 197.6 lbs 12/02/2024 BMI 32.88 kg/m2 12/02/2024 Encounters Encounter Location Date Provider Diagnosis [facility] [address] [facility] 36 [facility] [address] [place] [id number] 12/02/2024 Jaimee Drake Obesity, class 1 E66.811 and BMI 32.0-32.9,adult Z68.32 Assessments Encounter Date Diagnosis (ICD Code) Assessment Notes Treatment Notes Treatment Clinical Notes Section Notes 12/02/2024 Obesity, class 1 (ICD-10 - E66.811) Patient has RA and it is recommended to lose weight to help her joints. Will send wegovy and see if it is covered. 12/02/2024 BMI 32.0-32.9,adul t (ICD-10 - Z68.32) Plan Of Treatment Medication Medication Name Sig Start Date Stop Date Notes Wegovy 0.25 MG/0.5ML 0.25 mg Subcutaneous once a week 11/21 Treatment Notes Assessment Notes Obesity, class 1 Patient has RA and i t is recommended to lose weight to help her joints. Will send wegovy and see if it is covered. Next Appt Details Follow Up: 3 weeks via phone , Reason: Provider Name:Jaimeeyamileth perez, 09/29/2025 09:15:00 AM, [address] [facility] 36 [facility], [address], [place], [id number], Progress Notes * Daisy ROSSDOB:[birth year] (55 yo F)Acc No.[id number]:12/02/2024 Progress Notes Patient: Daisy KHAN Provider: PERRY Kerr :1970 A ge:54 Y S ex:Female Date:12/02/2024 Address:[address] [place] [address] [place], [place] GARC[place]-[id number] Pcp:Aydee Kowalski Subjective: * Chief Complaints: * 1 . arthritis meds, Wegovy research. * HPI: P ain: The patient is here today to discuss wegovy. 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 * ROS: D ERMATOLOGY: no R liliam. n o H robb. G ASTROENTEROLOGY: no N ausea. n o V omiting. n o D iarrhea.? U ROLOGY: no D ifficulty urinating. n o B lood in urine. * Medical History: Ar[facility] Gloria in [place], 12/07/11 CT of head and sinuses normal, [...] smoking status: no. * Medications: T aking Simponi Aria 50 MG/4ML Solution as directed Intravenous , Taking Turmeric - Capsule as directed Orally , Taking Vitamin D3 125 MCG (5000 UT) Capsule 1 cap(s) orally once a day , Medication List reviewed and reconciled with the patient * Allergies: g uaiFENesin. Objective: * Vitals: W t:197.6, Temp:97.9, BP:132/82, HR:74, Nurse:CODY, Ht: 65, BMI:32.88. * Examination: G eneral Examination: General Appearance: N AD. C hest: n ormal shape and expansion. H eart: R SR. L ungs: c lear to auscultation. Assessment: * Assessment: 1. O besity, class 1 - E66.811 (Primary) 2 . B WY 32.0-32.9,adult - Z68.32? Plan: * Treatment: 2. B WY 32.0-32.9,adult Start Wegovy Solution Auto-injector, 0.25 MG/0.5ML, 0.25 mg, Subcutaneous, once a week, 4, Refills 0. * Procedure Codes: 3 075F SYST BP GE 130 - 139MM HG, 3079F DIAST BP 80-89 MM HG * Follow Up: 3 weeks via phone * Images: Billing Information: * Visit Code: 85781 Office Visit, Est Pt., Level 3. * Procedure Codes: 3075F SYST BP GE 130 - 139MM HG. 3079F DIAST BP 80-89 MM HG. * Electronic signature of PERRY Michel on 09/23/2025 at 07:38 AM EST Sign off status: Pending * Provider: PERRY Kerr Date: 0 12/02/2024 Generated for Elis bernardo/Eber/Tooitting on: 0 09/23/2025 07:38 AM EST History and Physical Notes * Examination Category Sub-Category Detail Notes Category Not es General Examination Heart: RSR Lungs: clear to auscultatio n General Appearance: NAD Chest: normal shape and exp ansion
--- OUTSIDE RECORDS SUMMARY | 2025-03-17 10:00 | XMS_ITS ---
Author Organization [facility] Address [address] [facility] [address] [place] [id number] Care Team Providers Care Baggage Clerk Name Role Phone Aydee Kowalski Primary Care Provider [phone] Jaimee Drake [phone] Allergies Allergen (clinical drug ingredient) Drug/Non Drug Allergy documented on EMR Reaction Allergy Type Onset Date Status guaiFENesin Unknown Drug Allergy Activ e REASON FOR VISIT weight check up Medications Medication SIG (Take, Route, Frequency, Duration) Notes Start Date End Date Status Simponi Aria 50 MG/4ML as directed Intravenous Active Turmeric - as directed Orally Active Vitamin D3 125 MCG (5000 UT) 1 cap(s) orally once a day A ctive Wegovy 2.4 MG/0.75ML 2.4 mg Subcutaneous once a week 03/17/2025 Active Vital Signs Blood pressure systolic 120 mm Hg 03/17/20 25 Blood pressure diastolic 80 mm Hg 025 Heart Rate 77 /min 03/17/2025 Height 65 in 03/17/2025 Weight 175.2 lbs 03/17/2025 BMI 29.15 kg/m2 03/17/2025 Encounters Encounter Location Date Provider Diagnosis [facility] [address] [place] [address] [place] [id number] 03/17/2025 Jaimee Drake Encounter for weight management Z76.89 and BMI 29.0-29.9,adult Z68.29 Assessments Encounter Date Diagnosis (ICD Code) Assessment Notes Treatment Notes Treatment Clinical Notes Section Notes 03/17/2025 Encounter for weight management (ICD-10 - Z76.89) 03/17/2025 BMI 29.0-29.9,adult (ICD-10 - Z68.29) Plan Of Treatment Medication Medication Name Sig Start Date Stop Date Notes Wegovy 1.7 MG/0.75ML 0.75 mL Subcutaneous once a week 11/2024 Wegovy 2.4 MG/0.75ML 2.4 mg Subcutaneous once a week 03/17 Next Appt Details Follow Up: 3 months fasting, Reason: Provider Name:Jaimee Heredia ana, 09/29/2025 09:15:00 AM, [address], [address], [place], [place], [phone], Progress Notes * Daisy PLEITEZDOB:[birth year] (55 yo F)Acc No.[id number]:03/17/2025 Progress Notes Patient: Daisy KHAN Provider: PERRY Kerr :1970 A ge:55 Y S ex:Female Date:03/17/2025 Address:[address] [place] [address], [place], [place] Pcp:Aydee Kowalski Subjective: * Chief Complaints: * 1 . Weight check up. * HPI: C onstitutional: The pt is here for a check up on weight management. Pt states she is doing well. Pt states she is taking the Wegovy and states it is helpig with her joint pain as well. * ROS: D ERMATOLOGY: no R liliam. n o H robb. G ASTROENTEROLOGY: no N ausea. n o V omiting. n o D iarrhea.? U ROLOGY: no D ifficulty urinating. n o B lood in urine. * Medical History: Arpita Gloria in [place], 12/07/11 CT of head and sinuses normal, [...] 1 cap(s) orally once a day , Taking Wegovy 1.7 MG/0.75ML Solution Auto-injector 0.75 mL Subcutaneous once a week , Medication List reviewed and reconciled with the patient * Allergies: g uaiFENesin. Objective: * Vitals: W t: 175.2, Temp: 97.7, BP: 120/80, HR: 77, Nurse: CODY, Ht: 65, BMI:29.15. * Examination: G eneral Examination: General Appearance: N AD. C hest: n ormal shape and expansion. H eart: R SR. L ungs: c lear to auscultation. Assessment: * Assessment: 1. E ncounter for weight management - Z76.89 (Primary) 2 . B TN 29.0-29.9,adult - Z68.29 Plan: * Treatment: * Procedure Codes: 1 036F TOBACCO NON-USER, G8420 BMI<30 AND >=22 CALC & DOCU, G8783 BP SCR PRFRM RCMDD DEFIND SCR INTVL, G8752 MOST RECENT SYSTOLIC BP < 140MM HG, G8754 MOST RECENT DIASTOLIC BP < 90MM HG * Follow Up: 3 months fasting * Images: Billing Information: * Visit Code: 31170 Office Visit, Est Pt., Level 3. * Procedure Codes: 1036F TOBACCO NON-USER. G8420 BMI<30 AND >=22 CALC & DOCU. G8783 BP SCR PRFRM RCMDD DEFIND SCR INTVL. G8752 MOST RECENT SYSTOLIC BP < 140MM HG. G8754 MOST RECENT DIASTOLIC BP < 90MM HG. * Electronic signature of PERRY Michel on 09/23/2025 at 07:38 AM EST Sign off status: Pending * Provider: PERRY Kerr Date: 0 03/17/2025 Generated for Elis bernardo/Eber/Tooitting on: 0 09/23/2025 07:38 AM EST History and Physical Notes * Examination Category Sub-Category Detail Notes Category Not es General Examination Heart: RSR Lungs: clear to auscultatio n General Appearance: NAD Chest: normal shape and exp ansion
--- OUTSIDE RECORDS SUMMARY | 2025-06-16 04:00 | XMS_ITS ---
[facility] Address [address] [facility] [address] [place] [id number] Care Team Providers Care Base Wad Operator Adjuster Name Role Phone Aydee Kowalski Primary Care Provider Jaimee Drake Unavailable [phone] Allergies Allergen (clinical drug ingredient) Drug/Non Drug Allergy documented on EMR Reaction Allergy Type Onset Date Status guaiFENesin Unknown Drug Allergy Activ e Results Component Value Reference Range Notes CBC Venipuncture (in house) Reviewed date:06/17/2025 02:05:45 PM Interpretation:Normal Performing Lab: Notes/Report: Normal wbc 4.5 3.5 - 10 lymph 41.3% 15 - 50 mid 7.6% 2 - 15 gran 51.1% 35 - 80 rbc 4.46 3.5 - 5.5 hgb 13.7 11.5 - 16.5 hct 40.6 35 - 55 mcv 90.9 75 - 100 mch 30.7 25 - 35 mchc 33.7 31 - 38 platlet 210 100 - 400 Glycohemoglobin A1c (in hous e) Reviewed date:06/17/2025 02:05:45 PM Interpretation:5.1 Performing Lab: Notes/Report: 5.1 glycohemoglobin 5.1% 5 - 6.5 % P-Vitamin B12 Reviewed date:06/17/2025 02:05:45 PM Interpretation:Normal Performing Lab: Notes/Report: Test performed by [facility] [address] [facility] , [address], [place] [address] Chang Ray MD, First Sampler CLIA: [id number] Vitamin B12 119 029-9386 pg/mL P-Comprehensive Metabolic Pa celso (CMP) Reviewed date:06/17/2025 02:05:45 PM Interpretation:Bili 1.5 Performing Lab: Notes/Report: Test performed by [facility] [address] [place] [address] , [place] [address] Chang Ray MD, First Sampler CLIA: [id number] Sodium 140 135-145 mmol/L Potassium 4.8 3.5-5.3 mmol/L Chloride 104 97-108 mmol/L CO2 26 20-32 mmol/L Glucose 85 65-99 mg/dL BUN 12 6-20 mg/dL Creatinine 0.78 0.50-1.00 mg/dL Calcium 9.8 8.6-10.4 mg/dL eGFR by Creatinine 90 >59 mL/min/1.73m2 Protein 6.5 6.0-8.3 g/dL Albumin 4.6 3.5-5.3 g/dL Alkaline Phosphatase 88 35-121 IU/L ALT (SGPT) 15 <5-47 IU/L AST (SGOT) 14 <5-40 IU/L Bilirubin, Total 1.5 <0.2-1.2 mg/dL A/G Ratio 2.4 1.1-2.5 P-Lipid Panel Reviewed date:06/17/2025 02:05:45 PM Interpretation:Chol 215, Non-HDL 158, LDL 141 Performing Lab: Notes/Report: Test performed by [facility] [address] [place] [address] , [place] [address] Chang Ray MD, First Sampler CLIA: [id number] Cholesterol 215 <200 mg/dL Triglycerides 83 <150 mg/dL HDL Cholesterol 57 >39 mg/dL Cholesterol / HDL Ratio 3.77 0.00-4.44 Ratio Non-HDL Cholesterol 158 <130 mg/dL LDL Cholesterol (Calculation) 141 <130 mg/dL LDL Cholesterol Levels* Less than 100 mg/dL Optimal 100 to 129 mg/dL Near Optimal/ Above Optimal 130 to 159 mg/dL Borderline High 160 to 189 mg/dL High 190 mg/dL and above Very High * Categories as recommended by the 2004 ATPIII guidelines LDL/HDL Ratio 2.5 <3.3 Ratio LDL Cholesterol Patient History Test Date: 11/08/2023 LDL Results: 165 Units: mg/dL % Change: - Test Date: 01/23/2024 LDL Results: 113 Units: mg/dL % Change: -31% Test Date: 06/16/2025 LDL Results: 141 Units: mg/dL % Change: +24% P-TSH reflex to FT4 Reviewed date:06/17/2025 02:05:45 PM Interpretation:Normal Performing Lab: Notes/Report: Test performed by [facility] [address], [place] [address] Chang Ray MD, First Sampler CLIA: [id number] TSH reflex to FT4 1.32 0.43-5.25 mU/L P-Vitamin D 25-Hydroxy Reviewed date:06/17/2025 02:05:45 PM Interpretation:26.9 Performing Lab: Notes/Report: Test performed by [facility], [address] , [address], [place] [address] Chang Ray MD, First Sampler CLIA: [id number] Vitamin D 25-Hydroxy 26.9 30.0-100.0 ng/mL Interpretation of Vitamin D 25 [place]: < 20 ng/mL - Deficiency 20 - 29 ng/mL - Insufficiency 30 - 100 ng/mL - Sufficiency > 100 ng/mL - Super-therapeutic- toxicity may occur above this level. Clinical correlation required. REASON FOR VISIT 3 month fasting f/u, Needs labs, mammogram, shingles, & flu vaccine Medications Medication SIG (Take, Route, Frequency, Duration) Notes Start Date End Date Status Vitamin D3 125 MCG (5000 UT) 1 cap(s) orally once a day A ctive Wegovy 2.4 MG/0.75ML 2.4 mg Subcutaneous once a week Active Simponi Aria 50 MG/4ML as directed Intravenous Active Folic Acid 1 MG 1 tablet Orally Once a day Active Methotrexate Sodium 2.5 MG 6 tablets Ora lly once a week Active Problems Problem Type SNOMED Code ICD Code Onset Dates Problem Status W/U Status Risk Notes Problem Rheumatoid arthritis (55089410) Rheumatoid arthritis with positive rheumatoid factor, involving unspecified site (M05.9) Active confirmed Vital Signs Blood pressure systolic 130 mm Hg 06/16/20 25 Blood pressure diastolic 76 mm Hg 025 Heart Rate 74 /min 06/16/2025 Height 65 in 06/16/2025 Weight 155.6 lbs 06/16/2025 BMI 25.89 kg/m2 06/16/2025 Encounters Encounter Location Date Provider Diagnosis [facility] [address] [facility] [address] [place], [place] [id number] 06/16/2025 Jaimee Drake Encounter for weight management Z76.89 ; Vitamin D deficiency E55.9 ; Elevated hemoglobin A1c R73.09 ; Mixed hyperlipidemia E78.2 ; Rheumatoid arthritis with positive rheumatoid factor, involving unspecified site M05.9 ; Hair loss L65.9 and BMI 25.0-25.9,adult Z68.25 Assessments Encounter Date Diagnosis (ICD Code) Assessment Notes Treatment Notes Treatment Clinical Notes Section Notes 06/16/2025 Encounter for weight management (ICD-10 - Z76.89) 06/16/2025 Vitamin D deficiency (ICD-10 - E55.9) 06/16/2025 Elevated hemoglobin A1c (ICD-10 - R73.09) 06/16/2025 Mixed hyperlipidemia (ICD-10 - E78.2) 06/16/2025 Rheumatoid arthritis with positive rheumatoid factor, involving unspecified site (ICD-10 - M05.9) 06/16/2025 Hair loss (ICD-10 - L65.9) 06/16/2025 BMI 25.0-25.9,adult (ICD-10 - Z68.25) Plan Of Treatment Medication Medication Name Sig Start Date Stop Date Notes Wegovy 2.4 MG/0.75ML 2.4 mg Subcutaneous once a week Next Appt Details Follow Up: via phone to repo rt test results, Reason: Provider Name:Jaimee perez, 09/29/2025 09:15:00 AM, [address], [place], [place], [id number], Progress Notes * Daisy PLEITEZDOB:[birth year] (55 yo F)Acc No.[id number]:06/16/2025 Progress Notes Patient: Daisy KHAN Provider: PERRY Kerr :1970 A ge:55 Y S ex:Female Date:06/16/2025 Address:[address] [place] [address], [facility] Pcp:Aydee Kowalski Subjective: * Chief Complaints: * 1 . 3 month fasting f/u. 2. Needs labs, mammogram, shingles, & flu vaccine. * HPI: C ardiology: 55 year old female presents with c/o Hyperlipidemia P t is fasting today. Pt states she has no new concerns at this time. C onstitutional: c/o weight loss P t here to follow up on weight loss from Wegovy. * ROS: D ERMATOLOGY: no R liliam. n o H robb. G ASTROENTEROLOGY: no N ausea. n o V omiting. n o D iarrhea.? U ROLOGY: no D ifficulty urinating. n o B lood in urine. * Medical History: Arpita Gloria in [place], 12/07/11 CT of head and sinuses normal, [...] . * Social History: C URRENT TOBACCO USE: No S moking Status: Patient does NOT smoke. C affeine: yes, frequency:pop. Home smoke detector use: yes. Marital Status: . Past smoking status: no. * Medications: T aking Methotrexate Sodium 2.5 MG Tablet 6 tablets Orally once a week , Taking Folic Acid 1 MG Tablet 1 tablet Orally Once a day , Taking Simponi Aria 50 MG/4ML Solution as directed Intravenous , Taking Vitamin D3 125 MCG (5000 UT) Capsule 1 cap(s) orally once a day , Taking Wegovy 2.4 MG/0.75ML Solution Auto-injector 2.4 mg Subcutaneous once a week , Medication List reviewed and reconciled with the patient * Allergies: g uaiFENesin. Objective: * Vitals: W t: 155.6, Temp: 98.2, BP: 130/76, HR: 74, Nurse: MELINDA, Ht: 65, BMI:25.89. * Examination: G eneral Examination: General Appearance: N AD. H EENT: u nremarkable.?Oral cavity: n o lesions, mucosa moist and WNL, no erythema. N josy: s upple, no lymphadenopathy. C hest: n ormal shape and expansion. H eart: R SR. L ungs: c lear to auscultation. A bdomen: b owel sounds present, soft and nontender. N eurologic Exam: I ntact, gait normal. S kin: n ormal, no rash. P eripheral pulses: n ormal (2+) bilaterally. E xtremities: n o leg edema. Assessment: * Assessment: 1. E ncounter for weight management - Z76.89 (Primary) 2 . V itamin D deficiency - E55.9 3 . E levated hemoglobin A1c - R73.09 4 . M ixed hyperlipidemia - E78.2 5 . R heumatoid arthritis with positive rheumatoid factor, involving unspecified site - M05.9 6 . H air loss - L65.9 7 . B AR 25.0-25.9,adult - Z68.25 Plan: * Treatment: Value Reference Range w bc 4.5 3.5 - 10 * l ymph 41.3% 15 - 50 * m id 7.6% 2 - 15 * g ran 51.1% 35 - 80 * r bc 4.46 3.5 - 5.5 * h gb 13.7 11.5 - 16.5 * h ct 40.6 35 - 55 * m cv 90.9 75 - 100 * m ch 30.7 25 - 35 * m chc 33.7 31 - 38 * p latlet 210 100 - 400 * Keara Stevens 06/16/2025 03: 58:50 PM EDT > [place]i Escudero 06/17/2025 02:05:38 PM EDT > See phone encounter 2.?Vitamin D deficiency?LAB: P-Vitamin D 25-Hydroxy (Collection Date & Time - 06/16/2025 08:29 AM)? 26.9* Value Reference Range V itamin D 25-Hydroxy 26.9 L 30.0-100.0 - ng/mL * Jaimee Drake 06/16/2025 0 9:27:50 AM EDT >room B, purple Sammi Escudero 06/17/2025 02:05:38 PM EDT > See phone encounter 3.?Elevated hemoglobin A1c?LAB: Glycohemoglobin A1c (in house) (Collection Date & Time - 06/16/2025)? 5.1* Value Reference Range g lycohemoglobin 5.1% 5 - 6.5 % * Keara Stevens 06/16/2025 04: 00:03 PM EDT > Sammi Escudero 06/17/2025 02:05:38 PM EDT > See phone encounter 4.?Mixed hyperlipidemia?LAB: P-Comprehensive Metabolic Panel (CMP) (Collection Date & Time - 06/16/2025 08:29 AM)?Bili 1.5* Value Reference Range A /G Ratio 2.4 1.1-2.5 - * A lbumin 4.6 3.5-5.3 - g/dL * A lkaline Phosphatase 88 35-121 - IU/L * A LT (SGPT) 15 <5-47 - IU/L * A ST (SGOT) 14 <5-40 - IU/L * B ilirubin, Total 1.5 H <0.2-1.2 - mg/dL * B UN 12 6-20 - mg/dL * C alcium 9.8 8.6-10.4 - mg/dL * C hloride 104 97-108 - mmol/L * C O2 26 20-32 - mmol/L * C reatinine 0.78 0.50-1.00 - mg/dL * G lucose 85 65-99 - mg/dL * P otassium 4.8 3.5-5.3 - mmol/L * S odium 140 135-145 - mmol/L * P rotein 6.5 6.0-8.3 - g/dL * e GFR by Creatinine 90 >59 - mL/min/1.73m2 * Jaimee Drake 06/16/2025 0 9:27:50 AM EDT >room B, purple Kena S[place]i 06/17/2025 02:05:38 PM EDT > See phone encounter ?LAB: P-Lipid Panel (Collection Date & Time - 06/16/2025 08:29 AM)?Chol 215, Non-HDL 158, LDL 141* Value Reference Range C holesterol / HDL Ratio 3.77 0.00-4.44 - Ratio * C holesterol 215 H <200 - mg/dL * H DL Cholesterol 57 >39 - mg/dL * L DL Cholesterol (Calculation) 141 H <130 - mg/d L * L DL/HDL Ratio 2.5 <3.3 - Ratio * N on-HDL Cholesterol 158 H <130 - mg/dL * T riglycerides 83 <150 - mg/dL * Jaimee Drake 06/16/2025 0 9:27:50 AM EDT >room Bjhonny Whitney 06/17/2025 02:05:38 PM EDT > See phone encounter 5.?Hair loss?LAB: P-Vitamin B12 (Collection Date & Time - 06/16/2025 08:29 AM)?Normal* Value Reference Range V itamin B12 151 205-0808 - pg/mL * Jaimee Drake 06/16/2025 0 9:27:50 AM EDT >room , [place] Brothers 06/17/2025 02:05:38 PM EDT > See phone encounter ?LAB: P-TSH reflex to FT4 (Collection Date & Time - 06/16/2025 08:29 AM)? Normal* Value Reference Range T SH reflex to FT4 1.32 0.43-5.25 - mU/L * Jaimee Drake 06/16/2025 0 9:27:50 AM EDT >room jhonny Z[place] Whitney 06/17/2025 02:05:38 PM EDT > See phone encounter * Procedure Codes: 8 3036 GLYCATED HEMOGLOBIN TEST, Modifiers: QW , 57465 CBC WITH AUTO DIFF, 1036F TOBACCO NON-USER, 3075F SYST BP GE 130 - 139MM HG, 3078F DIAST BP < 80 MM HG, 3044F HG A1C LEVEL LT 7.0%, 3017F COLORECTAL CA SCREEN DOC REV * Preventive Medicine: Screening / Special Tests: C olonoscopy [facility] Symptom.ly, normal, repeat in 10 years. * Follow Up: v ia phone to report test results * Images: Billing Information: * Visit Code: 81693 Office Visit, Est Pt., Level 4. * Procedure Codes: 84757 GLYCATED HEMOGLOBIN TEST. Modifiers: QW 33304 CBC WITH AUTO DIFF. 1036F TOBACCO NON-USER. 3075F SYST BP GE 130 - 139MM HG. 3078F DIAST BP < 80 MM HG. 3044F HG A1C LEVEL LT 7.0%. 3017F COLORECTAL CA SCREEN DOC REV. * Electronic signature of PERRY Michel on 09/23/2025 at 07:38 AM EST Sign off status: Pending * Provider: PERRY Kerr Date: 0 06/16/2025 Generated for Elis bernardo/Eber/eTransmitting on: 0 09/23/2025 07:38 AM EST History and Physical Notes * HPI (History of Present Illness) Category Sub-Category Detail Notes Category Not es Cardiology Hyperlipidemia Pt is fasting to day. Pt states she has no new concerns at this time Constitutional weight loss Pt here to brenda w up on weight loss from Wegovy Examination Category Sub-Category Detail Notes Category Not es General Examination HEENT: unremarkable Heart: RSR Lungs: clear to auscultatio n Abdomen: bowel sounds present , soft and nontender Extremities: no leg edema General Appearance: NAD Skin: normal, no rash Neurologic Exam: Intact, gait normal Neck: supple, no lymphaden opathy Oral cavity: no lesions, mucosa m oist and WNL, no erythema Peripheral pulses: normal (2+) bilatera lly Chest: normal shape and exp ansion
--- OUTSIDE RECORDS SUMMARY | 2025-07-30 09:45 | XMS_ITS | Encounter Summary ---
[facility] Address [address] [place] [address] Care Team Providers Care Cleat Maker Name Role Phone Kashif Fitch MD Primary Care Provider [phone] Reason for Referral * Diagnostic Imaging (Routine) - Closed Specialty Diagnoses / Procedures Referred By Vinod graham Referred To Contact Radiology Diagnoses Abnormal mammogram Procedures Mammo Diagnostic Digital Tomosynthesis Left With CAD Tammy Grove, SENIOR PROJECT MANAGER ENGINEERING [address] [place] [address] Phone: tel: fax: Referral ID Status Reason Start Date Expiration Date Visits Re quested Visits Authorized Closed 07/15/2025 10/14/2026 1 1 Reason for Visit * Diagnostic Imaging (Routine) - Closed Specialty Diagnoses / Procedures Referred By Vinod graham Referred To Contact Radiology Diagnoses Abnormal mammogram Procedures Mammo Diagnostic Digital Tomosynthesis Left With CAD Tammy Grove, SENIOR PROJECT MANAGER ENGINEERING [address] [place] [address] Phone: tel: fax: Referral ID Status Reason Start Date Expiration Date Visits Re quested Visits Authorized [id number] Closed 07/15/2025 10/14/2026 1 1 Encounter Details Date Type Department Care Team (Latest Contact Info) Description 07/30/2025 9:45 AM EST - 07/30/2025 11:59 PM EST Hospital Encounter [facility] MAMMO[facility]HY [place] [address] [facility] [address] [place] [address] Abnormal mammogram Discharge Disposition: Home or Self Care Social History Tobacco Use Types Packs/Day Years Used Date Smoking Tobacco: Never Smokeless Tobacco: Never Comments No Sex and Gender Information Value Date Recorded Sex Assigned at Not on file Legal Sex Female 10:39 AM EDT Gender Identity Not on file Sexual Orientation Not on file documented as of this encounter Medications at Time of Discharge atorvastatin (LIPITOR) 10 MG tablet Take 1 tablet by mouth Daily. 06/18/2025 Cholecalciferol (D2000 Ultra Strength) 50 MCG (2000 UT) capsule 06/23/2025 Cyanocobalamin (B-12) 1000 MCG capsule folic acid (FOLVITE) 1 MG tablet Take 1 tablet by mouth Daily. Golimumab (SIMPONI ARIA IV) 03/23/2025 methotrexate 2.5 MG tablet Take 6 tablets by mouth 1 (One) Time Per Week. multivitamin with minerals (MULTIVITAMIN ADULT PO) Take 1 tablet by mouth Daily. Wegovy 2.4 MG/0.75ML solution auto-injector INJECT 1 PEN-INJECTOR SUBCUTANEOUSLY ONCE A WEEK 06/27/2025 documented as of this encounter Plan of Treatment Upcoming Encounters Date Type Department Care Team (Late st Contact Info) Description 01/31/2026 9:00 AM EDT Appointment [facility] MAMMOGRAPHY [address] [place] [address] documented as of this encounter Procedures Procedure Name Priority Date/Time Associated Diagnosis Comments MAMMO DIAGNOSTIC DIGITAL TOMOSYNTHESIS LEFT W CAD Routine 07/30/2025 10:04 AM EST Abnormal mammogram documented in this encounter Results * Mammo Diagnostic Digital Tomosynthesis Left With CAD (07/30/2025 10:04 AM EST) Anatomical Region Laterality Modality Breast Left Mammography 07/30/2025 11:2 3 AM EST Impressions 07/30/2025 12:35 PM EST Cysts as well as a probably benign mass at the 3 o'clock position of the left breast. ACR BI-RADS CATEGORY: 3, PROBABLY BENIGN RECOMMENDATION: 6-month short-term interval diagnostic mammographic and targeted ultrasound follow-up with attention to the 3 o'clock position 9 cm from the nipple on the left to document stability of the probably benign lesion. CAD was utilized. The standard false-negative rate of mammography is between 10% and 25%. Complex patterns or increased breast density will markedly elevate the false-negative rate of mammography. A letter, in lay terminology, with the results of this exam was given to the patient at the time of the visit. _ Physician Order Diagnostic 6 Month follow up Mammogram with Breast Ultrasound if needed. Diagnosis: Abnormal Mammogram 07/30/2025 12:35 PM by Lora Driver MD on Narrative 07/30/2025 12:35 PM EST LEFT DIGITAL DIAGNOSTIC MAMMOGRAM WITH TOMOSYNTHESIS AND DIAGNOSTIC TARGETED LEFT BREAST ULTRASOUND CLINICAL HISTORY: Questioned area of asymmetry within the lateral aspect of the left breast as well as the anterior aspect of the superior breast. TECHNIQUE: Spot compression views, 2D and tomosynthesis left ML view. COMPARISON: Recent screening exam. MAMMOGRAM FINDINGS: The lateral asymmetry persists, however the anterior depth superior asymmetry resolves on spot compression. ULTRASOUND FINDINGS: Targeted ultrasound was performed by myself as well as the technologist. There are several subcentimeter simple cyst identified at 3:00 on the left 6 cm from the nipple as well as a oval parallel hypoechoic mass at 3:00 on the left 5 cm the nipple measuring 0.6 cm in maximal extent which may represent a probably benign mass such as a fibroadenoma. I suspect this is the correlate for the mammographic finding. I personally imaged the entirety of the lateral left breast with no other masses or cysts identified. us Dinora Peña MD IMG MAMMOGRAPHY ORDERABLES Fin al Result documented in this encounter Visit Diagnoses Diagnosis Abnormal mammogram Abnormal mammogram, unspecified documented in this encounter Care Teams Cleat Maker Relationship Specialty Start Date End Date Kashif Fitch MD [address] [facility] [address] [facility] [address] [place] [address] PCP - General Family Medicine 12/20/22 documented as of this encounter
--- OUTSIDE RECORDS SUMMARY | 2025-07-30 11:20 | XMS_ITS | Encounter Summary ---
[facility] [address] [place] [id number] Care Team Providers Care Theater Teacher Name Role Phone Kashif Fitch MD Primary Care Provider [phone] Reason for Referral * Diagnostic Imaging (Routine) - Closed Specialty Diagnoses / Procedures Referred By Vinod graham Referred To Contact Radiology Diagnoses Abnormal mammogram Procedures US Breast Left Limited Tammy Grove, SEE SUPERVISOR [address] [facility] [address] [place] [address] Phone: tel: fax: Referral ID Status Reason Start Date Expiration Date Visits Re quested Visits Authorized [id number] Closed 07/30/2025 10/29/2026 1 1 Reason for Visit * Diagnostic Imaging (Routine) - Closed Specialty Diagnoses / Procedures Referred By Vinod graham Referred To Contact Radiology Diagnoses Abnormal mammogram Procedures US Breast Left Limited Tammy Grove, SEE SUPERVISOR [address] [facility] [address] [place] [address] Phone: tel: fax: Referral ID Status Reason Start Date Expiration Date Visits Re quested Visits Authorized [id number] Closed 07/30/2025 10/29/2026 1 1 Encounter Details Date Type Department Care Team (Latest Contact Info) Description 07/30/2025 11:20 AM EST - 07/30/2025 11:59 PM EST Hospital Encounter [facility] [place] [address] [facility] [address] [place] [address] Abnormal mammogram Discharge Disposition: Home or Self [...] Info) Description 01/31/2026 9:00 AM EDT Appointment [facility]MOGRAPHY [place] [address] [facility] [address] [place] [address] documented as of this encounter Procedures Procedure Name Priority Date/Time Associated Diagnosis Comments US BREAST LEFT LIMITED Routine 07/30/2025 12:05 PM EST Abnormal mammogram documented in this encounter Results * US Breast Left Limited (07/30/2025 12:05 PM EST) Anatomical Region Laterality Modality Breast Left Ultrasound 07/30/2025 11:2 3 AM EST Impressions 07/30/2025 [...] no other masses or cysts identified. us Lora Driver MD IMG US ORDERABLES Final Result documented in this encounter Visit Diagnoses Diagnosis Abnormal mammogram Abnormal mammogram, unspecified documented in this encounter Care Teams Theater Teacher Relationship Specialty Start Date End Date Kashif Fitch MD [address] [place] [facility] [address] [place] [address] PCP - General Family Medicine 12/20/22 documented as of this encounter
[2025-09-22 20:44] LABS: Coronavirus 19, PCR Not Detected (NotDetected); Influenza A, PCR Not Detected (NotDetected); Influenza B, PCR Not Detected (NotDetected)
--- OUTSIDE RECORDS SUMMARY | 2025-09-23 07:37 | XMS_ITS | Encounter Summary ---
[facility] Address [address] [place] [address] Care Team Providers Care Ditching Machine Operator Name Role Phone Kashif Fitch MD Primary Care Provider [phone] Encounter Details Date Type Department Care Team (Latest Contact Info) Description 07/30/2025 Travel Social History Tobacco Use Types Packs/Day [...] Info) Description 01/31/2026 9:00 AM EDT Appointment [facility]AMMOGRAPHY [place] [address] [place] [address] documented as of this encounter Visit Diagnoses Not on filedocumented in this encounter Care Teams Ditching Machine Operator Relationship Specialty Start Date End Date Kashif Fitch MD [address] [facility] [address] [place] [address] PCP - General Family Medicine 12/20/22 documented as of this encounter
--- OUTSIDE RECORDS SUMMARY | 2025-09-23 07:37 | XMS_ITS | Encounter Summary ---
[facility] [address] [place] [id number] Care Team Providers Care Breaker Up Machine Operator Name Role Phone Kashif Fitch MD Primary Care Provider Encounter Details Date Type Department Care Team (Late st Contact Info) Description 07/29/2025 Results Follow-Up [facility] PATIENT ACCESS [address] [place] [id number] Tammy Grove, CIRCUS LABORER [address] [facility] [address] [place] [address] Social History Tobacco Use Types Packs/Day Years [...] Info) Description 01/31/2026 9:00 AM EDT Appointment [facility]MOGRAPHY [place] [address] [place] [address] documented as of this encounter Visit Diagnoses Not on filedocumented in this encounter Care Teams Breaker Up Machine Operator Relationship Specialty Start Date End Date Kashif Fitch MD [address] [facility] [address] [place] [address] PCP - General Family Medicine 12/20/22 documented as of this encounter
--- OUTSIDE RECORDS SUMMARY | 2025-09-23 07:37 | XMS_ITS | Clinical Summary ---
Author Organization [facility] Address [address] [place] [address] Care Team Providers Care Family Consultant Name Role Phone Jaimee Drake Primary Care Provider [phone] Allergies Active Allergy Reactions Criticality Noted Date Comments Guaifenesin Swelling High 10/16/2022 Medications Sutab 9828-903-418 MG tablet TAKE 12 TABLETS BY MOUTH [...] package instructions 21 tablet 03/24/20 25 Active Additional Information Patient not taking.Reported on 05/03/2025 Social History Tobacco Use Types Packs/Day Years Used Date Smoking Tobacco: Never Smokeless Tobacco: Never Tobacco Cessation:Counseling Given: Not Answered Comments Unknown Sex and Gender Information Value Date Recorded Sex Assigned at Not on file Legal Sex Female 8:02 PM EDT Gender Identity Not on file Sexual Orientation Not on file Last Filed Vital Signs Vital Sign Reading Time Taken Comments Blood Pressure 125/80 05/03/2025 9:10 AM EDT Pulse 73 12/23/2023 8:46 AM EDT Temperature - - Respiratory Rate - - Oxygen Saturation 99% 12/23/2023 8:46 AM EDT Inhaled Oxygen Concentration - - Weight 73.5 kg (162 lb) 05/03/2025 9:10 AM EDT Height 165.1 cm (5' 5 ) 05/03/2025 9:10 AM EDT Body Mass Index 26.96 05/03/2025 9:10 AM EDT Plan of Treatment Health Maintenance Due Date Last Done Comments [...] Years (1 of 1 - PCV) 2021 [id number] Vaccine (4 - season) 2025 08/22/2021, 01/02/2021, 12/12/2020 [facility]-Influenza Vaccine (#1) 2025 07/16/2018 [facility]-Breast Cancer Screening 10/14/2025 10/14/2023, 0 10/14/2023 [facility]-DTaP,Tdap,and Td Vaccines (2 - Td or Tdap) 09/19/2032 09/19/2022 [facility]-Hepatitis A Vaccines Aged Out 02/05/2019, 12/23 No longer eligible based on patient's age to complete this topic [facility]-Diabetes: Hemoglobin A1C Discontinued 07/25/2023 [facility]-Obesity Intervention Completed 025, 03/23/2025, 01/26/2025, Additional history exists HPV Vaccines (No Doses Required) Completed [facility]-HIB Vaccines Aged Out No longer e ligible based on patient's age to complete this topic [facility]-IPV Vaccines Aged Out No longer e ligible based on patient's age to complete this topic [facility]-Rotavirus Vaccines Aged Out No lo nger eligible based on patient's age to complete this topic Insurance ANTH Care Teams Family Consultant Relationship Specialty Start Date End Date Jaimee Drake PA [facility] [address] [place] [address] PCP - General 03/25/25
--- OUTSIDE RECORDS SUMMARY | 2025-09-23 07:37 | XMS_ITS | Encounter Summary ---
[facility] Address [address] [place] [id number] Care Team Providers Care Button Sewing Machine Operator Name Role Phone Kashif Fitch MD Primary Care Provider [phone] Encounter Details Date Type Department Care Team (Late st Contact Info) Description 08/02/2025 Results Follow-Up [facility] BREAST [facility]ENTER [address] [facility] [address] [place] [address] Tammy Grove, RN NIGHT [address] [facility] [address] [place] [address] Social History Tobacco Use Types Packs/Day Years [...] Info) Description 01/31/2026 9:00 AM EDT Appointment [facility]MOGRAPHY [place] [address] [facility] [address] [place] [address] documented as of this encounter Visit Diagnoses Not on filedocumented in this encounter Care Teams Button Sewing Machine Operator Relationship Specialty Start Date End Date Kashif Fitch MD [address] [place] [facility] [address] [facility] [place] [address] PCP - General Family Medicine 12/20/22 documented as of this encounter
--- OUTSIDE RECORDS SUMMARY | 2025-09-23 07:38 | XMS_ITS | Patient Health Record ---
[facility] [address] [place] [facility] [address] [place] [id number] Care Team Providers Care Improvement Specialist Name Role Phone Aydee Kowalski Primary Care Provider [phone] Jaimee Drake [phone] Allergies Allergen (clinical drug ingredient) Drug/Non Drug Allergy documented on EMR Reaction Allergy Type Onset Date Status guaiFENesin Unknown Drug Allergy Activ e Results Component Value Reference Range Notes P-TSH reflex to FT4 Reviewed date:06/17/2025 02:05:45 PM Interpretation:Normal Performing Lab: Notes/Report: Test performed by [facility] [address] [place], [place] [address] [place] , [place] [address] Chang Ray MD, District Operations Manager CLIA: [id number] TSH reflex to FT4 1.32 0.43-5.25 mU/L P-Lipid Panel Reviewed date:06/17/2025 02:05:45 PM Interpretation:Chol 215, Non-HDL 158, LDL 141 Performing Lab: Notes/Report: Test performed by [facility] [address] [place], [place] [address] [place] [address], [place] [address] Chang Ray MD, District Operations Manager CLIA: [id number] Cholesterol 215 <200 mg/dL Triglycerides 83 <150 [...] Results: 141 Units: mg/dL % Change: +24% P-Comprehensive Metabolic Pa celso (CMP) Reviewed date:06/17/2025 02:05:45 PM Interpretation:Bili 1.5 Performing Lab: Notes/Report: Test performed by [facility] [address] [place] [address] , [address], [place] [address] Chang Ray MD, District Operations Manager CLIA: [id number] Sodium 140 135-145 mmol/L Potassium 4.8 3.5-5.3 [...] 1.5 <0.2-1.2 mg/dL A/G Ratio 2.4 1.1-2.5 Glycohemoglobin A1c (in hous e) Reviewed date:06/17/2025 02:05:45 PM Interpretation:5.1 Performing Lab: Notes/Report: 5.1 glycohemoglobin 5.1% 5 - 6.5 % CBC Venipuncture (in house) Reviewed date:06/17/2025 02:05:45 [...] - 38 platlet 210 100 - 400 P-Vitamin D 25-Hydroxy Reviewed date:06/17/2025 02:05:45 PM Interpretation:26.9 Performing Lab: Notes/Report: Test performed by [facility] [address] [place] [address] , [address], [place] [address] Chang Ray MD, District Operations Manager CLIA: [id number] Vitamin D 25-Hydroxy 26.9 30.0-100.0 ng/mL Interpretation of Vitamin D 25 OH: < 20 ng/mL - Deficiency 20 - 29 ng/mL - Insufficiency 30 - 100 ng/mL - Sufficiency > 100 ng/mL - Super-therapeutic- toxicity may occur above this level. Clinical correlation required. P-Vitamin B12 Reviewed date:06/17/2025 02:05:45 PM Interpretation:Normal Performing Lab: Notes/Report: Test performed by [facility] [address] [place] [address] , [address], [place] [address] Chang Ray MD, District Operations Manager CLIA: [id number] Vitamin B12 990 248-0461 pg/mL Medications Medication SIG (Take, Route, Frequency, Duration) [...] tablets Ora lly once a week Active Atorvastatin Calcium 10 MG 1 tablet Oral ly Once a day; Duration: 30 days Active Immunizations Vaccine Route Administration Date Status Comme nts Tetanus Tdap-Adacel (over 7yrs) Unknown 09/19/2022 Administered ppd ID Intradermal 11/14/2009 Administered Hepatitis A (adult) Unknown 01/19/2016 Administered Hepatitis A (adult) Unknown 02/05/2019 Administered Fluzone Quad (6months&older) Unknown 07/16/2018 Adminis tered COVID 19 Pfizer Unknown 12/12/2020 Administered COVID 19 Pfizer Unknown 01/02/2021 Administered COVID 19 Pfizer Unknown 08/22/2021 Administered Problems Problem Type SNOMED Code ICD Code Onset Dates Problem Status W/U Status Risk Notes Problem Vitamin D deficiency (18898298) Vitamin D deficiency (E55.9) Active confirmed Problem BMI 30+ - obesity (397384312) BMI 32.0-32.9,adult (Z68.32) Active confirmed Problem Restless legs syndrome (18205600) Restless leg syndrome (G25.81) Active confirmed Problem Mixed hyperlipidemia (485165221) Mixed hyperlipidemia (E78.2) Active confirmed Problem Paresthesia (finding) (74545134) Paresthesia of skin (R20.2) Active confirmed Problem Obese class I (finding) (328439333070678) Obesity (BMI 30.0-34.9) (E66.9) Active confirmed Problem Skin sensation disturbance (37564782) Tingling of face (R20.2) Active confirmed Problem Rheumatoid arthritis (00905441) Rheumatoid arthritis with positive rheumatoid factor, involving unspecified site (M05.9) Active confirmed Problem Obese class I (finding) (963519977745374) Obesity, class 1 (E66.811) Active confirmed Vital Signs Heart Rate 74 /min 06/16/2025 Blood pressure diastolic 76 mm Hg 06/16/2025 Height 65 in 06/16/2025 Blood pressure systolic 130 mm Hg 06/16/2025 Weight 155.6 lbs 06/16/2025 BMI 25.89 kg/m2 06/16/2025 Encounters Encounter Location Date Provider Diagnosis [facility] 1210 [facility] [address] [id number] 12/02/2024 Jaimee Drake Obesity, class 1 E66 .811 and BMI 32.0-32.9,adult Z68.32 [facility] 1210 [facility] [address] [id number] 03/17/2025 Jaimeeyamileth Drake Encounter for weight management Z76.89 and BMI 29.0-29.9,adult Z68.29 [facility] 1210 [facility] [address] [place], [place] [id number] 06/16/2025 Jaimee Crowdy Encounter for weight management Z76.89 ; Vitamin D deficiency E55.9 ; Elevated hemoglobin A1c R73.09 ; Mixed hyperlipidemia E78.2 ; Rheumatoid arthritis with positive rheumatoid factor, involving unspecified site M05.9 ; Hair loss L65.9 and BMI 25.0-25.9,adult Z68.25 [facility] 1210 [facility] [address], [place] [id number] 12/03/2024 R Cornell Meghana [facility] [address] [place], [place] [id number] 12/28/2024 R Cornell Meghana BMI 32.0-32.9,adult Z68.32 [facility] [address] [place], [place] [id number] 12/28/2024 R Cornell Meghana [facility] [address] [place], [place] [id number] 12/31/2024 R Cornell Meghana BMI 32.0-32.9,adult Z68.32 [facility] [address] [place], [place] [id number] 01/28/2025 R Cornell Meghana [facility] [address] [place], [place] [id number] 02/23/2025 R Cornell Meghana [facility] [address] [place], [place] [id number] 04/05/2025 R Cornell Meghana [facility] [address] [place], [place] [id number] 06/17/2025 Jaimee Drake Assessments Encounter Date Diagnosis (ICD Code) Assessment Notes Treatment Notes Treatment Clinical Notes Section Notes 06/16/2025 Vitamin D deficiency (ICD-10 - E55.9) 06/16/2025 Encounter for weight management (ICD-10 - Z76.89) 03/17/2025 BMI 29.0-29.9,adult (ICD-10 - Z68.29) 03/17/2025 Encounter for weight management (ICD-10 - Z76.89) 12/31/2024 BMI 32.0-32.9,adult (ICD-10 - Z68.32) 12/28/2024 BMI 32.0-32.9,adult (ICD-10 - Z68.32) 12/02/2024 BMI 32.0-32.9,adult (ICD-10 - Z68.32) 12/02/2024 Obesity, class 1 (ICD-10 - E66.811) Patient has RA and it is recommended to lose weight to help her joints. Will send jakob and see if it is covered. 06/16/2025 Elevated hemoglobin A1c (ICD-10 - R73.09) 06/16/2025 Mixed hyperlipidemia (ICD-10 - E78.2) 06/16/2025 Rheumatoid arthritis with positive rheumatoid factor, involving unspecified site (ICD-10 - M05.9) 06/16/2025 Hair loss (ICD-10 - L65.9) 06/16/2025 BMI 25.0-25.9,adult (ICD-10 - Z68.25) Plan Of Treatment Next Appt Details Provider Name:Jaimee perez, 09/29/2025 09:15:00 AM, [address], [place], [place], [id number], Insurance Providers Payer Name Payer Address Payer Phone Subscriber Number Group Number Insured Name Patient Relationship to Insured Coverage Start Date Coverage End Date [facility] [address] [place] [address] [id number] Daisy Verduzco Self - patient is the insured Medications Administered Medication Instructions Date of Administration Dosage Notes Morphine 12/22/2012 2 mg Phenergan 12.5 mgs. IM 12/22/2012 Medical (General) History Medical History History ICD Code SPINNER IRON - Dr. Gloria in [place] 12/07/11 CT of head and sinuses normal RA Vitamin D deficiency Surgical History Surgery Date(Month/Year) Partial vaginal hysterectomy R Elbow Debrivement December 31, 2017 Right knee meniscus repair march 06, 2021 Right Knee Meniscus Removal Jul, 2021 Left Middle Finger Mass Removal- non mal ignant Sep 19, 2021 Hospitalization History Reason Date(Month/Year) [facility], possible inner ear 07/22/14 [facility] ER for stepping on a nail
--- OUTSIDE RECORDS SUMMARY | 2025-09-23 07:38 | XMS_ITS | Clinical Summary ---
Author Organization [facility] Address [address] [place] [address] Care Team Providers Care Fence Machine Operator Name Role Phone Ksahif Fitch MD Primary Care Provider [phone] Allergies Active Allergy Reactions Criticality Noted Date Comments Guaifenesin Swelling High 10/16/2022 Medications multivitamin with minerals (MULTIVITAMIN ADULT PO) Take 1 tablet by mouth Daily. Active atorvastatin (LIPITOR) 10 MG tablet Take 1 tablet by mouth Daily. 5 Active Cholecalcifero l (D2000 Ultra Strength) 50 MCG (2000 UT) capsule 5 Active Cyanocobalamin (B-12) 1000 MCG capsule Active folic acid (FOLVITE) 1 MG tablet Take 1 tablet by mouth Daily. Active Golimumab (SIMPONI ARIA IV) 5 Active methotrexate 2.5 MG tablet Take 6 tablets by mouth 1 (One) Time Per Week. Active Wegovy 2.4 MG/0.75ML solution auto-injector INJECT 1 PEN-INJECTOR SUBCUTANEOUSLY ONCE A WEEK 5 Active Active Problems Problem Noted Date Diagnosed Date Mixed incontinence 07/25/2023 Overview (07/25/2023): Has not been doing kegel exercises. Advised to begin that, will do ditropan for urgency. If not improvement in 8 weeks we can refer to pelvic floor PT. Can see Ailyn contreras. Family history of ovarian cancer 07/25/2023 Overview (07/25/2023): Pt mother. Recommended annual [place] ovarian cancer screening program Encounters Date Type Department Care Team Description 08/02/2025 Results Follow-Up [facility] [address] [facility] [address] [place] [address] Tammy Grove, AMERICAN SIGN LANGUAGE INTERPRETER 07/30/2025 11:20 AM EST - 07/30/2025 11:59 PM EST Hospital Encounter [facility]TRASOUND [place] [address] [place] [address] Abnormal mammogram Discharge Disposition: Home or Self Care 07/30/2025 9:45 AM EST - 07/30/2025 11:59 PM EST Hospital Encounter [facility]MOGRAPHY [place] [address] [place] [address] Abnormal mammogram Discharge Disposition: Home or Self Care 07/30/2025 Travel 07/29/2025 Results Follow-Up [facility] PATIENT ACCESS [address] [place] [address] Tammy Grove, AMERICAN SIGN LANGUAGE INTERPRETER 07/14/2025 8:55 AM EDT - 07/14/2025 11:59 PM EDT Hospital Encounter [facility] [address] [place] [address] Tammy Grove, AMERICAN SIGN LANGUAGE INTERPRETER Encounter for screening mammogram for malignant neoplasm of breast Discharge Disposition: Home or Self Care 07/14/2025 Travel 07/12/2025 2:00 PM EDT Office Visit [facility] O[facility]YN [address] [place] [address] Tammy Grove, AMERICAN SIGN LANGUAGE INTERPRETER Family history of ovarian cancer (Primary Dx); Encounter for gynecological examination without abnormal finding 07/12/2025 Travel from Last 3 Months Family History Medical History Relation Name Comments Gastric cancer Father Heart disease Father Diabetes Mother [place] Heart disease Mother [place] Lung cancer Mother [place] Ovarian cancer Mother [place] Stroke Mother [place] Uterine cancer Mother [place] Breast cancer Neg Hx Relation Name Status Comments Father Mother [place] Social History Tobacco Use Types Packs/Day Years Used Date Smoking Tobacco: Never Smokeless Tobacco: Never Tobacco Cessation:Counseling Given: Not Answered Comments No Sex and Gender Information Value Date Recorded Sex Assigned at Not on file Legal Sex Female 10:39 AM EDT Gender Identity Not on file Sexual Orientation Not on file Last Filed Vital Signs Vital Sign Reading Time Taken Comments Blood Pressure 106/74 07/12/2025 1:59 PM EDT Pulse - - Temperature - - Respiratory Rate 18 07/12/2025 1:59 PM EDT Oxygen Saturation - - Inhaled Oxygen Concentration - - Weight 70.8 kg (156 lb) 07/12/2025 1:59 PM EDT Height 165.1 cm (5' 5 ) 07/12/2025 1:59 PM EDT Body Mass Index 25.96 07/12/2025 1:59 PM EDT Plan of Treatment Upcoming Encounters Date Type Department Care Team (Late st Contact Info) Description 01/31/2026 9:00 AM EDT Appointment [facility] MAMMOGRAPHY [place] [address] [facility] [address] [place] [address] Health Maintenance Due Date Last Done Comments COLOGUARD 2016 COLON CANCER SCREENING 5 YEA R SIGMOID[address]COPY [address] COLONOGRAPHY 2016 FECAL OCCULT BLOOD TEST 2016 FIT Testing (1 year) 2016 Pneumococcal Vaccine 50+ (1 of 1 - PCV) 2021 ZOSTER VACCINE (1 of 2) 2021 ANNUAL PHYSICAL 07/25/2023 HEPATITIS C SCREENING 07/25/2023 INFLUENZA VACCINE 04/23/2025 07/16/2018 Annual Gynecologic Pelvic an d Breast Exam 07/13/2026 07/12/2025 MAMMOGRAM 07/30/2027 07/30/2025, 06/24, 10/21/2023, Additional history exists TDAP/TD VACCINES (2 - Td or Tdap) 09/19/2032 022 COLONOSCOPY 09/25/2033 09/25/2023 COLORECTAL CANCER SCREENING 09/25/2033 Procedures Procedure Name Priority Date/Time Associated Diagnosis Comments US BREAST LEFT LIMITED Routine 12:05 PM EST Abnormal mammogram MAMMO DIAGNOSTIC DIGITAL TOMOSYNTHESIS LEFT W CAD Routine 07/30/2025 10:04 AM EST Abnormal mammogram AMBRY GENETIC ASSESSMENT Routine 07/25/2025 5:58 AM EST MAMMO SCREENING DIGITAL TOMOSYNTHESIS BILATERAL W CAD Routine 07/14/2025 9:02 AM EDT Encounter for screening mammogram for malignant neoplasm of breast SCANNED - COLONOSCOPY 09/25/2023 from Last 3 Months or Most Recently Relevant to Health Maintenance Results * US Breast Left Limited (07/30/2025 [...] Driver MD IMG US ORDERABLES Final Result * Mammo Diagnostic Digital Tomosynthesis Left With [...] with no other masses or cysts identified. Dinora Peña MD IMG MAMMOGRAPHY ORDERABLES Fin al Result * [email or web address] GENETIC RISK ASSESSMENT QUESTIONNAIRE - , (07/25/2025 5:58 AM EST) SylwiaBrennanfelton 7.1 [employer] NCCN NCCN not met [employer] Comment:High Risk Cancer Ris k Assessment 07/25/2025 5:58 AM EST Tammy Grove AMERICAN SIGN LANGUAGE INTERPRETER GENETIC TESTING Final Res ult [employer]
[address] [place] [address], [place] [phone] * (ABNORMAL) Mammo Screening Digital Tomosynthesis Bilateral With CAD (07/14/2025 9:02 AM EDT) Anatomical Region Laterality Modality Breast N/A Mammography 07/15/2025 3:01 PM EDT Impressions 07/15/2025 3:08 PM EDT Asymmetries in the left breast. RECOMMENDATION: Left CC focal compression, MLO focal compression, and ML views with tomosynthesis. ML imaging should be performed with the nipple in profile and an open inframammary fold region. BI-RADS CATEGORY 0, INCOMPLETE: NEED ADDITIONAL IMAGING EVALUATION. The patient will be contacted by our office to schedule an appointment for the additional studies. A letter, in lay terminology, with the results of this exam will be mailed to the patient. CAD was utilized. The standard false-negative rate of mammography is between 10% and 25%. Complex patterns or increased breast density will markedly elevate the false-negative rate of mammography. PHYSICIAN ORDER DIAGNOSTIC MAMMOGRAM AND/OR ULTRASOUND. DIAGNOSIS: ABNORMAL SCREENING MAMMOGRAM 07/15/2025 3:[address] Dinora Peña MD on Narrative 07/15/2025 3:08 PM EDT BILATERAL SCREENING MAMMOGRAM WITH TOMOSYNTHESIS: HISTORY: The patient has no personal history or significant family history of breast cancer and no focal breast complaints at the time of screening mammography. Her mother was diagnosed with ovarian cancer. The patient has lost 30 pounds since her prior mammogram. TECHNIQUE: Bilateral CC and MLO low dose, full field digital mammographic images were obtained with tomosynthesis. COMPARISON: 10/14/2023, 12/08/2020, 01/20/2019, 04/02/2017, and 03/19/2017 FINDINGS: The breast tissue is heterogeneously dense, which may obscure small masses. RIGHT BREAST The fibroglandular pattern is stable. There are no suspicious masses, worrisome calcifications, areas of architectural distortion, or other secondary signs of malignancy. LEFT BREAST There are asymmetries in the mid aspect of the lateral breast and anterior aspect of the superior breast. Additional imaging is recommended. The remaining fibroglandular pattern is stable. No suspicious calcifications were noted. us Tammy Grove APRN IMG MAMMOGRAPHY ORDERABLE S Final Result * SCANNED - COLONOSCOPY (09/25/2023) Irineo Guzman MD CHART REVIEW TABS Destiny l Result from Last 3 Months or Most Recently Relevant to Health Maintenance Insurance [facility] PPO Care Teams Fence Machine Operator Relationship Specialty Start Date End Date Kashif Fitch MD [address] [facility] [address] [place] [address] PCP - General Family Medicine 12/20/22
== END 2025-09-22 23:59 | disposition home or self-care (01) ==
LOC: LAB.DROPOF 09-23 07:34
PROVIDERS: PCP Physician Assistant; Visit Provider Nurse Practitioner
DX: R52 Pain, unspecified (principal)
CPT/HCPCS: 87631